=== PATIENT | male | born 1960 | race Caucasian/White ===

== ENCOUNTER 2016-11-29 00:31 | Emergency (ER) | payer BC ==
[2016-11-29 00:41] VITALS: BP 142/92
[2016-11-29] MEDS ORDERED: NORMAL SALINE 1000 ML 1,000 ML IV PRN (01:45)
--- NOTE | 2016-11-29 01:47 | ER Document Report ---
ED GI/ - General Chief Complaint: Flank Pain Stated Complaint: FLANK PAIN Time seen by provider: 01:46 Mode of Arrival: Stretcher Information source: Patient - HPI Patient complains to provider of: Flank pain Onset: This evening Timing/Duration: Sudden Quality of pain: Sharp, Stabbing Severity at maximum: Severe Severity in ED: Moderate Pain Level: 3 Location: Left flank Associated symptoms: Dysuria, Nausea Exacerbated by: Denies Relieved by: Denies Similar symptoms previously: No Recently seen / treated by doctor: No Notes: 11/29/16 01:46 Patient is a 56-year-old male presenting to the emergency room complaining of left flank pain that started abruptly around 8 PM this evening, it is sharp and stabbing and constant in nature, initially was at a 10 out of 10 pain, now at a 6 out of 10 pain after receiving IV Toradol via EMS, reports proximally a week ago he had some urinary frequency and hesitancy which has since resolved, he reports a mild sensation of nausea earlier this evening with the pain that has since resolved, he has had no vomiting, had a normal bowel movement earlier this morning, denies a history of similar symptoms previously, no aggravating or alleviating factors, no fever - Related Data Allergies/Adverse Reactions: No Known Allergies Allergy (Verified 01/31/14 08:23) Past Medical History - General Information source: Patient - Social History Smoking Status: Current Every Day Smoker Frequency of alcohol use: Occasional Drug Abuse: None Family History: Reviewed & Not Pertinent - Past Medical History Cardiac Medical History: Reports: Hx Atrial Fibrillation Pulmonary Medical History: Reports: Hx COPD Denies: Hx Tuberculosis Psychiatric Medical History: Denies: Hx Depression - Immunizations Hx Diphtheria, Pertussis, Tetanus Vaccination: No Review of Systems - Review of Systems Constitutional: No symptoms reported EENT: No symptoms reported Cardiovascular: No symptoms reported Respiratory: No symptoms reported Gastrointestinal: Nausea Genitourinary: See HPI, Flank pain Male Genitourinary: No symptoms reported Musculoskeletal: No symptoms reported Skin: No symptoms reported Hematologic/Lymphatic: No symptoms reported Neurological/Psychological: No symptoms reported -: Yes All other systems reviewed and negative Physical Exam - Vital signs Vitals: Temp Pulse Resp BP Pulse Ox 98.2 F 60 16 142/92 H 98 11/29/16 00:37 11/29/16 00:37 11/29/16 00:37 11/29/16 00:37 11/29/16 00:37 Interpretation: Normal - General General appearance: Appears well, Alert - HEENT Head: Normocephalic, Atraumatic Eyes: Normal Pupils: PERRL - Respiratory Respiratory status: No respiratory distress Chest status: Nontender Breath sounds: Normal Chest palpation: Normal - Cardiovascular Rhythm: Regular Heart sounds: Normal auscultation Murmur: No - Abdominal Inspection: Normal Distension: No distension Bowel sounds: Normal Tenderness: Nontender Organomegaly: No organomegaly - Back Back: Normal, Nontender. No: CVA tenderness - Extremities General upper extremity: Normal inspection, Nontender, Normal color, Normal ROM , Normal temperature General lower extremity: Normal inspection, Nontender, Normal color, Normal ROM , Normal temperature, Normal weight bearing. No: Elizabeth's sign - Neurological Neuro grossly intact: Yes Cognition: Normal Orientation: AAOx4 [place] Coma Scale Eye Opening: Spontaneous Nancie Coma Scale Verbal: Oriented [place] Coma Scale Motor: Obeys Commands [place] Coma Scale Total: 15 Speech: Normal Motor strength normal: LUE, RUE, LLE, RLE Sensory: Normal - Psychological Associated symptoms: Normal affect, Normal mood - Skin Skin Temperature: Warm Skin Moisture: Dry Skin Color: Normal Course - Re-evaluation Re-evalutation: 11/29/16 03:48 Lab and imaging findings were discussed with patient at bedside which are consistent with a 2 mm stone in the bladder just distal to the left UVJ, his symptoms are consistent with a kidney stone, although he is much more comfortable after receiving a single dose of Toradol, patient was provided with additional medication for home use and information for follow-up with urology, advised to return if symptoms worsen, patient acknowledges understanding and agreement with this plan - Vital Signs Vital signs: Temp Pulse Resp BP Pulse Ox 98.2 F 60 16 142/92 H 98 11/29/16 00:37 11/29/16 00:37 11/29/16 00:37 11/29/16 00:37 11/29/16 00:37 - Laboratory Result Diagrams: 11/29/16 02:45 11/29/16 02:45 Laboratory results interpreted by me: 11/29/16 11/29/16 11/29/16 01:55 02:45 02:45 Seg Neutrophils % 85.6 H Lymphocytes % 6.7 L Chloride 108 H Glucose 126 H Total Protein 5.8 L Urine Protein 30 H Urine Ketones TRACE H Urine Blood LARGE H Urine Urobilinogen 2.0 H - Diagnostic Test Radiology reviewed: Image reviewed, Reports reviewed Discharge - Discharge Clinical Impression: Kidney stone on left side Condition: Stable Disposition: HOME, SELF-CARE Instructions: Kidney Stone ([facility]) Additional Instructions: Drink plenty of fluids. Take pain medication as needed. Follow-up with your primary care provider and a urologist within the next 2-3 days. Return to the emergency room immediately if symptoms worsen or any additional concerns. Prescriptions: Ondansetron [Zofran Odt 4 mg Tablet] 1 - 2 tab PO Q4H #10 tab.rapdis Oxycodone HCl/Acetaminophen [Percocet 5-325 mg Tablet] 1 - 2 tab PO ASDIR PRN # 15 tablet PRN Reason: Tamsulosin HCl [Flomax 0.4 mg Cap.sr] 0.4 mg PO DAILY #7 cap.sr.24h Forms: Return to Work
[2016-11-29 02:25] LABS: APPEARANCE,URINE CLOUDY; BILIRUBIN,URINE NEGATIVE (NEGATIVE); CALCIUM OXALATE CRYSTALS,URINE MODERATE /HPF; GLUCOSE, URINE NEGATIVE (NEGATIVE); KETONES,URINE TRACE mg/dL (NEGATIVE); LEUKOCYTE ESTERASE,URINE NEGATIVE (NEGATIVE); NITRITE,URINE NEGATIVE (NEGATIVE); PROTEIN,URINE 30 mg/dL (NEGATIVE); URINE SPECIFIC GRAVITY 1.025
[2016-11-29 03:04] LABS: ABSOLUTE EOSINOPHILS # (AUTO) 0.1 10^3/uL (0.0-0.6); ABSOLUTE LYMPHOCYTES (AUTO) 0.6 10^3/uL (0.5-4.7); ABSOLUTE MONOCYTES (AUTO) 0.6 10^3/uL (0.1-1.4); ABSOLUTE NEUT (AUTO) 7.8 10^3/uL (1.7-8.2); BASOPHILS % (AUTO) 0.4 % (0-2); EOSINOPHILS % (AUTO) 0.9 % (0-6); HEMATOCRIT 43.1 % (37.9-51.0); HEMOGLOBIN 15.1 g/dL (13.5-17.0); HGB HCT DIFFERENCE 2.2; LYMPHOCYTES % (AUTO) 6.7 % (13-45); MEAN CORPUSCULAR HEMOGLOBIN 32.4 pg (27.0-33.4); MEAN CORPUSCULAR HGB CONC 34.9 g/dL (32.0-36.0); MEAN CORPUSCULAR VOLUME 93 fl (80-97); MONOCYTES % (AUTO) 6.4 % (3-13); RED BLOOD COUNT 4.65 10^6/uL (4.35-5.55); RED CELL DISTRIBUTION WIDTH 13.9 % (11.5-14.0); SEGMENTED NEUTROPHILS % (AUTO) 85.6 % (42-78); WHITE BLOOD COUNT 9.1 10^3/uL (4.0-10.5)
[2016-11-29 03:08] LABS: ALANINE AMINOTRANSFERASE 31 U/L (21-72); ALBUMIN 3.5 g/dL (3.5-5.0); ALKALINE PHOSPHATASE 84 U/L (38-126); ANION GAP 9 (5-19); ASPARTATE AMINO TRANSFERASE 26 U/L (17-59); BILIRUBIN,TOTAL 0.5 mg/dL (0.2-1.3); BLOOD UREA NITROGEN 15 mg/dL (7-20); CALCIUM 8.9 mg/dL (8.4-10.2); CARBON DIOXIDE 24 mmol/L (22-30); CHLORIDE 108 mmol/L (98-107); CREATININE RESULT 0.75 mg/dL (0.52-1.25); GLUCOSE 126 mg/dL (75-110); SODIUM 140.6 mmol/L (137-145); TOTAL PROTEIN 5.8 g/dL (6.3-8.2)
[2016-11-29] MEDS ORDERED: HYDROCODONE/ACETAMINOPHEN 5-325 MG 6 TAB/DSPK PO PRN (03:25)
[2016-11-29] MEDS ORDERED: ONDANSETRON ODT 4 MG TAB (6 TAB/DSPK) PO PRN (03:26)
[2016-11-29] MEDS ORDERED: TAMSULOSIN HCL 0.4 MG CAP.SR.24H PO ONE (03:26)
== END 2016-11-29 04:07 | disposition home or self-care (01) ==
LOC: ER 00:31
DX: N20.0 Calculus of kidney (principal); R10.9 Unspecified abdominal pain; R30.0 Dysuria; F17.200 Nicotine dependence, unspecified, uncomplicated; J44.9 Chronic obstructive pulmonary disease, unspecified
CPT/HCPCS: 99284; 96360; 36415; 85025; 80053; 81001; 76380; J7030

== ENCOUNTER 2017-04-29 10:41 | Emergency (ER) | payer BC ==
[2017-04-29] MEDS ORDERED: ASPIRIN 81 MG TABLET, CHEWABLE PO ONE (10:55)
[2017-04-29] MEDS ORDERED: IPRATROPIUM/ALBUTEROL 0.5-2.5 MG/3 ML AMPUL NEB ONE (10:57)
--- NOTE | 2017-04-29 10:59 | ER Document Report ---
ED Medical Screen (RME) - General Chief Complaint: Shortness Of Breath Stated Complaint: SHORT OF BREATH Time Seen by Provider: 04/29/17 10:55 Mode of Arrival: Ambulatory Information source: Patient Notes: 56-year-old male complaining of bilateral leg swelling over the past week with increased shortness of breath and chest tightness. He has a history of A. fib, COPD, and CHF. He is concerned that this is an exacerbation of CHF. TRAVEL OUTSIDE OF THE [place] IN LAST 30 DAYS: No - Related Data Allergies/Adverse Reactions: No Known Allergies Allergy (Verified 04/29/17 10:43) Past Medical History - Past Medical History Cardiac Medical History: Reports: Hx Atrial Fibrillation Pulmonary Medical History: Reports: Hx COPD Denies: Hx Tuberculosis Renal/ Medical History: Denies: Hx Peritoneal Dialysis Psychiatric Medical History: Denies: Hx Depression - Immunizations Hx Diphtheria, Pertussis, Tetanus Vaccination: No Physical Exam - Vital signs Vitals: Temp Pulse Resp BP Pulse Ox 97.9 F 77 16 134/80 H 95 04/29/17 10:43 04/29/17 10:43 04/29/17 10:43 04/29/17 10:43 04/29/17 10:43 Course - Vital Signs Vital signs: Temp Pulse Resp BP Pulse Ox 97.9 F 77 16 134/80 H 95 04/29/17 10:43 04/29/17 10:43 04/29/17 10:43 04/29/17 10:43 04/29/17 10:43
[2017-04-29 11:24] LABS: ABSOLUTE EOSINOPHILS # (AUTO) 0.1 10^3/uL (0.0-0.6); ABSOLUTE LYMPHOCYTES (AUTO) 1.8 10^3/uL (0.5-4.7); ABSOLUTE MONOCYTES (AUTO) 0.9 10^3/uL (0.1-1.4); ABSOLUTE NEUT (AUTO) 7.2 10^3/uL (1.7-8.2); BASOPHILS % (AUTO) 0.4 % (0-2); EOSINOPHILS % (AUTO) 0.8 % (0-6); HEMATOCRIT 46.2 % (37.9-51.0); HEMOGLOBIN 15.3 g/dL (13.5-17.0); HGB HCT DIFFERENCE -0.3; LYMPHOCYTES % (AUTO) 17.9 % (13-45); MEAN CORPUSCULAR HEMOGLOBIN 31.7 pg (27.0-33.4); MEAN CORPUSCULAR HGB CONC 33.1 g/dL (32.0-36.0); MEAN CORPUSCULAR VOLUME 96 fl (80-97); MONOCYTES % (AUTO) 8.8 % (3-13); RED BLOOD COUNT 4.81 10^6/uL (4.35-5.55); RED CELL DISTRIBUTION WIDTH 14.9 % (11.5-14.0); SEGMENTED NEUTROPHILS % (AUTO) 72.1 % (42-78); WHITE BLOOD COUNT 9.9 10^3/uL (4.0-10.5)
[2017-04-29 11:40] LABS: ALANINE AMINOTRANSFERASE 40 U/L (21-72); ALBUMIN 3.8 g/dL (3.5-5.0); ALKALINE PHOSPHATASE 73 U/L (38-126); ANION GAP 10 (5-19); ASPARTATE AMINO TRANSFERASE 27 U/L (17-59); BILIRUBIN,DIRECT 0.3 mg/dL (0.0-0.4); BILIRUBIN,TOTAL 0.7 mg/dL (0.2-1.3); BLOOD UREA NITROGEN 15 mg/dL (7-20); CALCIUM 9.4 mg/dL (8.4-10.2); CARBON DIOXIDE 29 mmol/L (22-30); CHLORIDE 103 mmol/L (98-107); CREATINE KINASE 48 U/L (55-170); CREATININE RESULT 0.89 mg/dL (0.52-1.25); GLUCOSE 89 mg/dL (75-110); POTASSIUM 3.8 mmol/L (3.6-5.0); SODIUM 141.9 mmol/L (137-145); TOTAL PROTEIN 6.4 g/dL (6.3-8.2)
[2017-04-29 11:52] LABS: CREATINE KINASE MB 1.05 ng/mL (<4.55)
[2017-04-29 11:53] LABS: TROPONIN I < 0.012 ng/mL
--- NOTE | 2017-04-29 13:00 | RADIOLOGY REPORT (SQ) ---
EXAM DESCRIPTION: CHEST PA/LAT COMPLETED DATE/TIME: 04/29/2017 12:47 pm REASON FOR STUDY: sob COMPARISON: 01/31/2014 NUMBER OF VIEWS: Two view. TECHNIQUE: Frontal and lateral radiographic views of the chest acquired. LIMITATIONS: None. FINDINGS: LUNGS AND PLEURA: Stable chronic lung change without new opacities, masses or pneumothorax . No pleural effusion. Attenuated blood vessels and flattened shirley-diaphragms. MEDIASTINUM AND HILAR STRUCTURES: No masses. No contour abnormalities. HEART AND VASCULAR STRUCTURES: Heart normal in size and contour. No evidence for failure. BONES: No acute findings. HARDWARE: None in the chest. OTHER: No other significant finding. IMPRESSION: COPD. NO ACUTE RADIOGRAPHIC FINDING IN THE CHEST. TECHNICAL DOCUMENTATION: JOB ID: [id number] [employer]- All Rights Reserved
--- NOTE | 2017-04-29 13:40 | ER Document Report ---
ED General - General Chief Complaint: Shortness Of Breath Stated Complaint: SHORT OF BREATH Time Seen by Provider: 04/29/17 10:55 Mode of Arrival: Ambulatory TRAVEL OUTSIDE OF THE [place] 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 Patient states this happened in the past which she was given Lasix for. Patient denies any pain in his legs patient denies history of DVT. Patient denies any shortness of breath patient states has a history of atrial fibrillation has been cardioverted in the past. Patient is unclear if he ever been in a normal sinus rhythm and takes medication to prevent A. fib or if he continues to have have rate controlled A. fib. Denies fevers chills nausea vomiting change in medications - Related Data Allergies/Adverse Reactions: No Known Allergies Allergy (Verified 04/29/17 10:43) Past Medical History - General Information source: Patient - Social History Smoking Status: Current Every Day Smoker Frequency of alcohol use: Occasional Drug Abuse: None Family History: Reviewed & Not Pertinent Patient has suicidal ideation: No Patient has homicidal ideation: No - Past Medical History Cardiac Medical History: Reports: Hx Atrial Fibrillation Pulmonary Medical History: Reports: Hx COPD Denies: Hx Tuberculosis Renal/ Medical History: Denies: Hx Peritoneal Dialysis Psychiatric Medical History: Denies: Hx Depression - Immunizations Hx Diphtheria, Pertussis, Tetanus Vaccination: No Review of Systems - Review of Systems Constitutional: No symptoms reported EENT: No symptoms reported Cardiovascular: No symptoms reported Respiratory: No symptoms reported Gastrointestinal: No symptoms reported Genitourinary: No symptoms reported Male Genitourinary: No symptoms reported Musculoskeletal: Other - Peripheral swelling Skin: No symptoms reported Hematologic/Lymphatic: No symptoms reported Neurological/Psychological: No symptoms reported Physical Exam - Vital signs Vitals: Temp Pulse Resp BP Pulse Ox 97.9 F 77 16 134/80 H 95 04/29/17 10:43 04/29/17 10:43 04/29/17 10:43 04/29/17 10:43 04/29/17 10:43 Interpretation: Normal - General General appearance: Appears well, Alert - HEENT Head: Normocephalic, Atraumatic Eyes: Normal Pupils: PERRL - Respiratory Respiratory status: No respiratory distress Chest status: Nontender Breath sounds: Normal Chest palpation: Normal - Cardiovascular Rhythm: Regular Heart sounds: Normal auscultation Murmur: No - Abdominal Inspection: Normal Distension: No distension Bowel sounds: Normal Tenderness: Nontender Organomegaly: No organomegaly - Back Back: Normal, Nontender - Extremities General upper extremity: Normal inspection, Nontender, Normal color, Normal ROM , Normal temperature General lower extremity: Normal inspection, Nontender, Edema - Patient edema bilaterally with 2+. No calf tenderness or palpable cords, Normal color, Normal ROM, Normal temperature, Normal weight bearing. No: Elizabeth's sign - Neurological Neuro grossly intact: Yes Cognition: Normal Orientation: AAOx4 [place] Coma Scale Eye Opening: Spontaneous Nancie Coma Scale Verbal: Oriented [place] Coma Scale Motor: Obeys Commands [place] Coma Scale Total: 15 Speech: Normal Motor strength normal: LUE, RUE, LLE, RLE Sensory: Normal - Psychological Associated symptoms: Normal affect, Normal mood - Skin Skin Temperature: Warm Skin Moisture: Dry Skin Color: Normal Course - Re-evaluation Re-evalutation: 04/29/17 15:57 Patient coming in for evaluation of bilateral lower extremity swelling with a bedside ultrasound showing no signs of DVT. Patient had compressibility of the common femoral vein or popliteal vein with good color flow. Patient lab work does not show any critical pathology. Patient was given 3 days of Lasix and encouraged follow-up with his primary care physician. - Vital Signs Vital signs: Temp Pulse Resp BP Pulse Ox 97.9 F 69 16 139/74 H 95 04/29/17 14:07 04/29/17 14:07 04/29/17 14:07 04/29/17 14:07 04/29/17 14:07 - Laboratory Result Diagrams: 04/29/17 11:10 04/29/17 11:10 Laboratory results interpreted by me: 04/29/17 04/29/17 11:10 11:10 RDW 14.9 H Creatine Kinase 48 L Discharge - Discharge Clinical Impression: Peripheral edema, History of atrial fibrillation Condition: Good Disposition: HOME, SELF-CARE Instructions: Atrial Fibrillation ([facility]), Edema, Peripheral ([facility]) Additional Instructions: Your evaluation today shows no signs of any critical pathology. I would continue to monitor the amount of salt that she are ingesting her diet. Please make sure she follow-up with her primary care physician. We will start you on Lasix 3 days worth. Return to the ER for any concerning pathology. Prescriptions: Furosemide [Lasix] 20 mg PO DAILY #3 tablet
[2017-04-29 14:09] VITALS: BP 139/74
--- NOTE | 2017-04-30 09:30 | EKG REPORT ---
SEVERITY:- BORDERLINE ECG - ATRIAL ECTOPIC TACHYCARDIA LOW VOLTAGE IN FRONTAL LEADS BORDERLINE T ABNORMALITIES, DIFFUSE LEADS : Confirmed by: Nadya De Leon 30-Apr-2017 09:30:07
== END 2017-04-29 14:09 | disposition home or self-care (01) ==
LOC: ER 10:41
DX: R60.0 Localized edema (principal); J44.9 Chronic obstructive pulmonary disease, unspecified; F17.200 Nicotine dependence, unspecified, uncomplicated; Z86.79 Personal history of other diseases of the circulatory system
CPT/HCPCS: 93005; 94640; 99285; 36415; 82553; 82550; 85025; 80053; 84484; 83880; 71020; 93010; J7620

== ENCOUNTER 2017-10-05 09:29 | Inpatient (IN) | payer BC ==
[2017-10-05] MEDS ORDERED: METHYLPREDNISOLONE INJ 125 MG/2 ML SDV IV ONE (09:55)
[2017-10-05] MEDS ORDERED: IPRATROPIUM/ALBUTEROL 0.5-2.5 MG/3 ML AMPUL NEB ONE (09:56)
[2017-10-05] MEDS ORDERED: ALBUTEROL SULFATE 0.083% NEB 2.5 MG/3 ML AMPUL NEB ONE ×2 (09:56)
--- NOTE | 2017-10-05 09:57 | ER Document Report ---
ED Medical Screen (RME) - General TRAVEL OUTSIDE OF THE [place] IN LAST 30 DAYS: No - HPI Onset: Last week <BASIL DODD - Last Filed: 10/05/17 10:09> <STEFANIE RAM - Last Filed: 10/05/17 10:26> - General Chief Complaint: Shortness Of Breath Stated Complaint: DIFFICULTY BREATHING Time Seen by Provider: 10/05/17 09:47 Notes: Patient is a 57 year old male presenting to the emergency department complaining of flu like symptoms. Patient states he was diagnosed with early stage pneumonia a week ago and feels like his symptoms of cough, wheezing, and shortness of breath has not gotten any better. (BASIL DODD) - Related Data Allergies/Adverse Reactions: No Known Allergies Allergy (Verified 10/05/17 09:41) Past Medical History - General Information source: Patient - Social History Cigarette use (# per day): Yes Chew tobacco use (# tins/day): No Frequency of alcohol use: None Drug Abuse: None - Past Medical History Cardiac Medical History: Reports: Hx Atrial Fibrillation Pulmonary Medical History: Reports: Hx COPD Denies: Hx Tuberculosis Renal/ Medical History: Denies: Hx Peritoneal Dialysis Psychiatric Medical History: Denies: Hx Depression - Immunizations Hx Diphtheria, Pertussis, Tetanus Vaccination: No <BASIL DODD - Last Filed: 10/05/17 10:09> Physical Exam - General General appearance: Appears well - Respiratory Breath sounds: Rhonchi - RLL, Wheezing - moderate expiratory <BASIL DODD - Last Filed: 10/05/17 10:09> - Vital signs Vitals: Temp Pulse Resp BP Pulse Ox 97.5 F 158 H 28 H 137/97 H 95 10/05/17 09:37 10/05/17 09:37 10/05/17 09:37 10/05/17 09:37 10/05/17 09:37 Course - Laboratory Result Diagrams: 10/05/17 10:10 10/05/17 10:10 <STEFANIE RAM - Last Filed: 10/05/17 10:26> - Vital Signs Vital signs: Temp Pulse Resp BP Pulse Ox 97.5 F 158 H 28 H 137/97 H 95 10/05/17 09:37 10/05/17 09:37 10/05/17 09:37 10/05/17 09:37 10/05/17 09:37
[2017-10-05] MEDS ORDERED: NORMAL SALINE 1000 ML 1,000 ML IV ONE (10:11)
--- NOTE | 2017-10-05 10:11 | ER Document Report ---
ED Respiratory Problem - General Chief Complaint: Shortness Of Breath Stated Complaint: DIFFICULTY BREATHING Time Seen by Provider: 10/05/17 09:47 Notes: The patient is a 57-year-old male, past medical history COPD, presents with increased shortness of breath and productive cough. He was started on a week of Levaquin 2 weeks ago by his dolly driver. He followed up with his primary care physician and was started on another week of Levaquin and steroids. Patient initially felt slightly better, but he is still having sputum and difficulty breathing. He took 2 duo nebs earlier today without much relief of his symptoms and came to the ER. Patient denies chest pain, nausea, vomiting, hemoptysis, back pain, recent travel, fevers, leg pain or headache. TRAVEL OUTSIDE OF THE [place] IN LAST 30 DAYS: No - Related Data Allergies/Adverse Reactions: No Known Allergies Allergy (Verified 10/05/17 09:41) Past Medical History - General Information source: Patient - Social History Smoking Status: Former Smoker Cigarette use (# per day): Yes Chew tobacco use (# tins/day): No Frequency of alcohol use: None Drug Abuse: None Family History: Reviewed & Not Pertinent Patient has suicidal ideation: No Patient has homicidal ideation: No - Past Medical History Cardiac Medical History: Reports: Hx Atrial Fibrillation Pulmonary Medical History: Reports: Hx COPD Denies: Hx Tuberculosis Renal/ Medical History: Denies: Hx Peritoneal Dialysis Psychiatric Medical History: Denies: Hx Depression - Immunizations Hx Diphtheria, Pertussis, Tetanus Vaccination: No Review of Systems - Review of Systems Notes: REVIEW OF SYSTEMS: CONSTITUTIONAL: -fevers, -chills EENT: -eye pain, -difficulty swallowing, -nasal congestion CARDIOVASCULAR:-chest pain, -syncope. RESPIRATORY: +cough, +SOB GASTROINTESTINAL: -abdominal pain, -nausea, -vomiting, -diarrhea GENITOURINARY: -dysuria, -hematuria MUSCULOSKELETAL: -back pain, -neck pain SKIN: -rash or skin lesions. HEMATOLOGIC: -easy bruising or bleeding. LYMPHATIC: -swollen, enlarged glands. NEUROLOGICAL: -altered mental status or loss of consciousness, -headache, - neurologic symptoms PSYCHIATRIC: -anxiety, -depression. ALL OTHER SYSTEMS REVIEWED AND NEGATIVE. Physical Exam - Vital signs Vitals: Temp Pulse Resp BP Pulse Ox 97.5 F 158 H 28 H 137/97 H 95 10/05/17 09:37 10/05/17 09:37 10/05/17 09:37 10/05/17 09:37 10/05/17 09:37 - Notes Notes: PHYSICAL EXAMINATION: GENERAL: Well-appearing, well-nourished and in no acute distress. HEAD: Atraumatic, normocephalic. EYES: Pupils equal round and reactive to light, extraocular movements intact, sclera anicteric, conjunctiva are normal. ENT: nares patent, oropharynx clear without exudates. Moist mucous membranes. NECK: Normal range of motion, supple without lymphadenopathy LUNGS: Tachypneic. Crackles in RLL. Mild end-expiratory wheezing. HEART: Regular rhythm, tachycardia. ABDOMEN: Soft, nontender, normoactive bowel sounds. No guarding, no rebound. No masses appreciated. EXTREMITIES: Normal range of motion, no pitting or edema. No cyanosis. NEUROLOGICAL: Cranial nerves grossly intact. Normal speech, normal gait. Normal sensory and motor exams. PSYCH: Normal mood, normal affect. SKIN: Warm, Dry, normal turgor, no rashes or lesions noted. Course - Re-evaluation Re-evalutation: Patient is a 57-year-old male with persistent wheezing and shortness of breath despite 2 outpatient treatments with Levaquin, steroids and his home nebulizers. Patient provided with IV Solu-Medrol and DuoNeb with improvement of his wheezing and shortness of breath. He has failed outpatient treatment for COPD exacerbation requires inpatient admission. Patient also found to be in persistent atrial flutter with RVR. He says that he takes Cardizem 240 mg daily and took himself off Xarelto due to a GI bleed. His bowl turner is Dr. Gio Thomas. 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 10/05/17 13:[address] De Leon about persistent atrial flutter with RVR despite 2 IV boluses of 20 mg and 25 mg Diltiazem and a drip. Pt remains stable. He recommends amiodarone protocol and Digoxin 0.5 mg IV and he will consult. 10/05/17 13:[address] Jama and he will admit patient to [facility] as Inpatient for further evaluation and treatment. - Vital Signs Vital signs: Temp Pulse Resp BP Pulse Ox 97.5 F 157 H 19 121/91 H 92 10/05/17 09:37 10/05/17 10:00 10/05/17 11:04 10/05/17 11:04 10/05/17 11:04 - Laboratory Result Diagrams: 10/05/17 10:10 10/05/17 10:10 Laboratory results interpreted by me: 10/05/17 10/05/17 10:10 10:10 WBC 11.1 H RDW 15.7 H Seg Neuts % (Manual) 97 H Lymphocytes % (Manual) 1 L Monocytes % (Manual) 1 L Abs Neuts (Manual) 10.8 H Abs Lymphs (Manual) 0.1 L Carbon Dioxide 31 H Glucose 133 H Direct Bilirubin 0.5 H Creatine Kinase 45 L - Diagnostic Test Radiology reviewed: Image reviewed, Reports reviewed Radiology results interpreted by me: CXR: NAD - EKG Interpretation by Me EKG shows normal: Intervals, QRS Complexes, ST-T Waves Rate: Tachycardia Rhythm: A.Flutter, with a 2:1 Block Powell/QRS: Right axis deviation When compared to previous EKG there are: Changes noted Critical Care Note - Critical Care Note Total time excluding time spent on procedures (mins): 45 Discharge - Discharge Clinical Impression: Atrial flutter with rapid ventricular response, COPD with exacerbation Condition: Stable Disposition: ADMITTED INPATIENT Admitting Provider: Hospitalist - [facility] Admitted: [facility]
[2017-10-05 10:26] LABS: VENOUS BLOOD BASE EXCESS 3.8 mmol/L; VENOUS BLOOD HCO3 30.6 mmol/L (20-32); VENOUS BLOOD PH 7.37 (7.30-7.42)
[2017-10-05 10:29] LABS: PROTHROMBIN TIME 14.9 SEC (11.4-15.4)
[2017-10-05 10:36] LABS: HEMATOCRIT 45.7 % (37.9-51.0); HEMOGLOBIN 15.3 g/dL (13.5-17.0); HGB HCT DIFFERENCE 0.2; MEAN CORPUSCULAR HEMOGLOBIN 30.8 pg (27.0-33.4); MEAN CORPUSCULAR HGB CONC 33.4 g/dL (32.0-36.0); MEAN CORPUSCULAR VOLUME 92 fl (80-97); RED BLOOD COUNT 4.96 10^6/uL (4.35-5.55); RED CELL DISTRIBUTION WIDTH 15.7 % (11.5-14.0); WHITE BLOOD COUNT 11.1 10^3/uL (4.0-10.5)
[2017-10-05 10:43] LABS: ALANINE AMINOTRANSFERASE 55 U/L (21-72); ALBUMIN 4.2 g/dL (3.5-5.0); ALKALINE PHOSPHATASE 80 U/L (38-126); ANION GAP 13 (5-19); ASPARTATE AMINO TRANSFERASE 27 U/L (17-59); BILIRUBIN,DIRECT 0.5 mg/dL (0.0-0.4); BLOOD UREA NITROGEN 19 mg/dL (7-20); CALCIUM 9.7 mg/dL (8.4-10.2); CARBON DIOXIDE 31 mmol/L (22-30); CHLORIDE 99 mmol/L (98-107); CREATINE KINASE 45 U/L (55-170); CREATININE RESULT 0.66 mg/dL (0.52-1.25); GLUCOSE 133 mg/dL (75-110); POTASSIUM 4.2 mmol/L (3.6-5.0); SODIUM 142.6 mmol/L (137-145); TOTAL PROTEIN 6.8 g/dL (6.3-8.2)
[2017-10-05 10:44] LABS: D-DIMER < 0.27 ug/mL (0.00-0.50)
[2017-10-05 10:55] LABS: ANISOCYTOSIS SLIGHT; BASOPHILS % (MANUAL) 0 % (0-2); EOSINOPHILS % (MANUAL) 1 % (0-6); LYMPHOCYTES % (MANUAL) 1 % (13-45); OVALOCYTES SLIGHT; POIKILOCYTOSIS SLIGHT; TOTAL CELLS COUNTED 100; TOXIC GRANULATION SLIGHT; TOXIC VACUOLATION PRESENT
[2017-10-05 10:56] LABS: HYPOCHROMASIA SLIGHT
--- NOTE | 2017-10-05 11:02 | RADIOLOGY REPORT (SQ) ---
EXAM DESCRIPTION: CHEST PA/LAT COMPLETED DATE/TIME: 10/05/2017 10:49 am REASON FOR STUDY: cough, wheeze, COPD COMPARISON: CT chest 01/29/2014 Two-view chest 04/29/2017 EXAM PARAMETERS: NUMBER OF VIEWS: two views TECHNIQUE: Digital Frontal and Lateral radiographic views of the chest acquired. RADIATION DOSE: NA LIMITATIONS: none FINDINGS: LUNGS AND PLEURA: Chronic appearing left pleural thickening with blunting of the lateral c ostophrenic sulcus, and adjacent bandlike left lower lobe scarring. No acute infiltrates. No pleural effusion. No pneumothorax. MEDIASTINUM AND HILAR STRUCTURES: No masses or contour abnormalities. HEART AND VASCULAR STRUCTURES: No cardiomegaly. Very head P pericardial calcification along the infe rior aspect of the pericardium, and along the anterior pericardium BONES: Osteoporotic with multiple old healed right rib fractures HARDWARE: None in the chest. OTHER: No other significant finding. IMPRESSION: No acute changes TECHNICAL DOCUMENTATION: JOB ID: [id number] [employer]- All Rights Reserved
[2017-10-05] MEDS ORDERED: DILTIAZEM HCL INJ 25 MG/5 ML VIAL IV ONE ×2 (11:08→11:57)
[2017-10-05] MEDS: DILTIAZEM HCL/D5W 125 MG/125 ML RTUINJ IV PRN ×2 (11:30→17:20)
[2017-10-05] MEDS ORDERED: FUROSEMIDE INJ/PF 40 MG/4 ML SDV IV ONE (12:31)
[2017-10-05] MEDS ORDERED: DIGOXIN INJ 0.5 MG/2 ML AMPULE IV ONE (13:51)
[2017-10-05] MEDS ORDERED: AMIODARONE HCL 150 MG in DEXTROSE 5%-WATER 100 ML IV ONE (13:51)
[2017-10-05] MEDS ORDERED: DEXTROSE 5%-WATER 500 ML with AMIODARONE HCL 900 MG IV PRN ×4 (13:51→17:35)
[2017-10-05] MEDS ORDERED: ACETAMINOPHEN 325 MG TABLET PO PRN (14:19)
[2017-10-05] MEDS ORDERED: ONDANSETRON HCL INJ/PF 4 MG/2 ML SDV IV PRN (14:19)
[2017-10-05] MEDS ORDERED: ALBUTEROL SULFATE 0.083% NEB 2.5 MG/3 ML AMPUL NEB PRN (14:19)
[2017-10-05] MEDS ORDERED: AMIODARONE HCL INJ 150 MG/3 ML VIAL IV ONE ×3 (14:30→15:30)
[2017-10-05 15:27] LABS: CREATINE KINASE MB 1.76 ng/mL (<4.55)
[2017-10-05 15:31] LABS: TROPONIN I < 0.012 ng/mL
[2017-10-05] MEDS ORDERED: INFLUENZA ADLT QUAD (36MOS+) 2017-18 VAC 0.5 ML SYR IM PRN (17:02)
--- NOTE | 2017-10-05 17:52 | PDOC H&P ---
History of Present Illness Admission Date/PCP: 10/05/17 14:30 Patient complains of: Heart palpatations History of Present Illness: CASSIDY ART is a 57 year old male presents with complaint of shortness of breath for several days. Pt states that at night he has noticed that he would wake up short of breath. Pt states that he went to his pulmonary doctor who treated to COPD exacerbation and pneumonia. Pt states that he still did not feel well so he went to his PCP who placed him on additional antibiotics. Pt states that his breathing is at it baseline. ER states that they spoke to Dr. De Leon who recommended starting Amiodarone. Past Medical History Cardiac Medical History: Reports: Atrial Fibrillation Pulmonary Medical History: Reports: Chronic Obstructive Pulmonary Disease (COPD) Denies: Tuberculosis Psychiatric Medical History: Denies: Depression Hematology: Denies: Anemia, Sickle Cell Disease Social History Smoking Status: Current Every Day Smoker Cigarettes Packs Per Day: 0.5 Number of Years Smokin Last Time Smoked: 10/05/17 Frequency of Alcohol Use: Heavy Hx Recreational Drug Use: No Drugs: None Hx Prescription Drug Abuse: No Family History Family History: Reviewed & Not Pertinent Parental Family History Reviewed: Yes Children Family History Reviewed: Yes Sibling(s) Family History Reviewed.: Yes Medication/Allergy Home Medications: Albuterol Sulfate [Proair HFA] 1 puff IH Q4HP PRN 10/05/17 Aspirin [Adult Low Dose Aspirin EC] 81 mg PO QAM 10/05/17 Diltiazem HCl [Cardizem Cd 240 mg Capsule.cr] 240 mg PO QAM 10/05/17 Umeclidinium Brm/Vilanterol Tr [Anoro Ellipta 62.5-25 Mcg INH] 1 puff IH DAILY 10/05/17 Allergies/Adverse Reactions: No Known Allergies Allergy (Verified 10/05/17 09:41) Review of Systems Constitutional: PRESENT: weight gain. ABSENT: chills, fever(s), headache(s), weight loss Eyes: ABSENT: visual disturbances Ears: ABSENT: hearing changes Cardiovascular: PRESENT: edema - +2 in lower ext bilaterally and + 2 pitting at waist., palpitations, other - chest tightness Respiratory: ABSENT: cough, hemoptysis Gastrointestinal: ABSENT: abdominal pain, constipation, diarrhea, hematemesis, hematochezia, nausea, vomiting Genitourinary: ABSENT: dysuria, hematuria Musculoskeletal: ABSENT: joint swelling Integumentary: ABSENT: rash, wounds Neurological: ABSENT: abnormal gait, abnormal speech, confusion, dizziness, focal weakness, syncope Psychiatric: ABSENT: anxiety, depression, homidical ideation, suicidal ideation Endocrine: ABSENT: cold intolerance, heat intolerance, polydipsia, polyuria Hematologic/Lymphatic: ABSENT: easy bleeding, easy bruising Physical Exam Vital Signs: Temp Pulse Resp BP Pulse Ox 97.9 F 138 H 18 116/89 H 100 10/05/17 16:23 10/05/17 16:23 10/05/17 16:23 10/05/17 16:23 10/05/17 16:23 Intake & Output 10/04/17 10/05/17 10/06/17 06:59 06:59 06:59 Weight 80.8 kg General appearance: PRESENT: no acute distress, well-developed, well-nourished Head exam: PRESENT: atraumatic, normocephalic Eye exam: PRESENT: conjunctiva pink, EOMI, PERRLA. ABSENT: scleral icterus Ear exam: PRESENT: normal external ear exam Mouth exam: PRESENT: moist, tongue midline Neck exam: ABSENT: carotid bruit, JVD, lymphadenopathy, thyromegaly Respiratory exam: PRESENT: accessory muscle use, crackles. ABSENT: rales, rhonchi, wheezes Cardiovascular exam: PRESENT: irregular rhythm, tachycardia. ABSENT: diastolic murmur, rubs, systolic murmur Pulses: PRESENT: normal dorsalis pedis pul Vascular exam: PRESENT: normal capillary refill GI/Abdominal exam: PRESENT: normal bowel sounds, soft. ABSENT: distended, guarding, mass, organolmegaly, rebound, tenderness Rectal exam: PRESENT: deferred Extremities exam: PRESENT: full ROM, +2 edema Musculoskeletal exam: PRESENT: full ROM Neurological exam: PRESENT: alert, awake, oriented to person, oriented to place , oriented to time, oriented to situation, CN II-XII grossly intact. ABSENT: motor sensory deficit Psychiatric exam: PRESENT: appropriate affect, normal mood. ABSENT: homicidal ideation, suicidal ideation Skin exam: PRESENT: abrasion Results Laboratory Results: 10/05/17 14:45 Magnesium 1.9 10/05/17 14:45 CK-MB (CK-2) 1.76 Troponin I < 0.012 Impressions: Chest X-Ray 10/05/17 09:56 IMPRESSION: No acute changes Assessment & Plan - Diagnosis (1) Atrial flutter with rapid ventricular response Is this a current diagnosis for this admission?: Yes Plan: Pt currently on Diltiazem and Amiodarone. (2) Volume overload Is this a current diagnosis for this admission?: Yes Plan: Secondary to A. Flutter with RVR: Will check [address] on Lasix 40 mg IV Q12. (3) COPD with exacerbation Is this a current diagnosis for this admission?: Yes Plan: Ruled out. No evidence of COPD exacerbation. (4) DVT prophylaxis Is this a current diagnosis for this admission?: Yes Plan: Xarelto - Time Time Spent: 30 to 50 Minutes
[2017-10-05] MEDS ORDERED: METOPROLOL TARTRATE PF/INJ 5 MG/5 ML SDV IV ONE (18:23)
[2017-10-05] MEDS ORDERED: METOPROLOL TARTRATE PF/INJ 5 MG/5 ML SDV IV SCH (18:45)
[2017-10-05] MEDS ORDERED: METOPROLOL TARTRATE PF/INJ 5 MG/5 ML SDV IV PRN (19:00)
--- NOTE | 2017-10-05 19:50 | PDOC CONSULTATION ---
Consultation Consult Date: 10/05/17 Attending physician:: SATNAM JOHNSON Consult reason:: Atrial flutter fibrillation History of Present Illness Admission Date/PCP: 10/05/17 14:30 Patient complains of: Shortness of breath History of Present Illness: CASSIDY ART is a 57 year old male presents with complaint of shortness of breath for several days. Pt states that at night he has noticed that he would wake up short of breath. Pt states that he went to his pulmonary doctor who treated to COPD exacerbation and pneumonia. Pt states that he still did not feel well so he went to his PCP who placed him on additional antibiotics. Pt states that his breathing is at it baseline. ER states that they spoke to Dr. De Leon who recommended starting Amiodarone. Patient normally sees Dr. Gio Orozco at Dr. Ruiz's office but has not been able to get up with him. Patient describes history of atrial fibrillation flutter in the past. He was on Xarelto in the past but he stopped it himself because of bleeding problems. He claims that he was sent to [facility] where he got cardioverted. They recommended that he would need ablation if cardioversion did not work. This was about 3 years ago. I got a call from the ER physician that patient did not respond to IV Cardizem and therefore suggested that amiodarone could be started. Also told them to give IV digoxin. Past Medical History Cardiac Medical History: Reports: Atrial Fibrillation Pulmonary Medical History: Reports: Chronic Obstructive Pulmonary Disease (COPD) Denies: Tuberculosis Psychiatric Medical History: Denies: Depression Hematology: Denies: Anemia, Sickle Cell Disease Social History Information Source: Patient Smoking Status: Current Every Day Smoker Cigarettes Packs Per Day: 0.5 Number of Years Smokin Last Time Smoked: 10/05/17 Frequency of Alcohol Use: Heavy Hx Recreational Drug Use: No Drugs: None Hx Prescription Drug Abuse: No - Advance Directive Resuscitation Status: Full Code Surrogate healthcare decision maker:: Patient spouse is the surrogate decision-maker Family History Family History: Reviewed & Not Pertinent Parental Family History Reviewed: Yes Children Family History Reviewed: Yes Sibling(s) Family History Reviewed.: Yes Medication/Allergy Home Medications: Albuterol Sulfate [Proair HFA] 1 puff IH Q4HP PRN 10/05/17 Aspirin [Adult Low Dose Aspirin EC] 81 mg PO QAM 10/05/17 Diltiazem HCl [Cardizem Cd 240 mg Capsule.cr] 240 mg PO QAM 10/05/17 Umeclidinium Brm/Vilanterol Tr [Anoro Ellipta 62.5-25 Mcg INH] 1 puff IH DAILY 10/05/17 Allergies/Adverse Reactions: No Known Allergies Allergy (Verified 10/05/17 09:41) Review of Systems Review of Systems: Please see history of present illness and past medical history as wall. Constitutional: No fever or chills reported. Head : No recent chronic headaches, recent head injury. Eyes: No recent eye pain, diplopia, redness, discharge, acute visual changes. Ears: No recent chronic ear pain, acute hearing loss, ear discharge. Oral cavity: No recent ulcerations, bleeding, oral cavity discomfort. Neck: No recent acute neck pain reported. Hematologic: No recent easy bruising or bleeding or hematologic malignancy reported. Lymphatic: No recent lymphatic malignancy, chronic lymphadenopathy reported yet Cardiovascular system review: See history of present illness. Respiratory system review: No recent chronic cough, hemoptysis, blood clots in the lungs reported. Mild Shortness of breath on exertion Gastrointestinal system review: Negative for any recent acute or chronic abdominal pain, hematemesis, melena, recent change in bowel habits. Genitourinary system review: No recent acute or chronic hematuria, flank pain, UTI etc. reported. Skin system review: Negative for any recent abnormal bruising, no rash, no pruritus reported. Neurologic: No prior history of strokes, mini strokes, seizure disorder. Psychologic: No history of major psychosis or major depression reported. Musculoskeletal: Minor aches and pains reported. No acute joint swelling reported. Endocrine: No recent polyuria, polydipsia, recent heat or cold intolerance. Physical Exam Vital Signs: Temp Pulse Resp BP Pulse Ox 97.9 F 138 H 23 H 126/88 H 92 10/05/17 16:23 10/05/17 16:23 10/05/17 18:00 10/05/17 17:56 10/05/17 18:00 Intake & Output 10/04/17 10/05/17 10/06/17 06:59 06:59 06:59 Intake Total 435 Output Total 300 Balance 135 Weight 80.8 kg Exam: GENERAL: well-nourished and in no acute distress. Alert and oriented x3 HEAD: Atraumatic, normocephalic. EYES: Pupils equal round and reactive to light, extraocular movements intact, sclera anicteric, conjunctiva are normal. ENT: TMs normal, nares patent, oropharynx clear without exudates. Moist mucous membranes. No oral ulcerations or bleeding gums noted NECK: supple without lymphadenopathy. Trachea is central. No cervical or axillary lymphadenopathy noted. Carotids are 2+, JVD WNL LUNGS: Respiration seems nonlabored, no significant accessory muscle action noted. Breath sounds clear to auscultation bilaterally and equal noted. No wheezes rales or rhonchi noted. No significant dullness noted on percussion. CHEST: Palpation of the chest wall shows no significant chest wall tenderness. No other significant abnormalities noted. HEART: [place] [employer], No PSH, 1/6 [place] aortic area, 1/6 connell systolic murmur mitral area, no rubs, no gallops. ABDOMEN: Soft, no significant tenderness appreciated, normoactive bowel sounds. No guarding, no rebound. No rigidity noted . No masses appreciated. EXTREMITIES: Pedal pulses are 1-2+, no calf tenderness noted. No clubbing or cyanosis.trace to 1+ pedal edema noted NEUROLOGICAL: Focused neurological exam showed no significant neurologic deficit. Normal speech, no focal weakness appreciated. PSYCH: Normal mood, normal affect. Judgment and insight within normal limits. SKIN: No significant ecchymosis, rash, ulcerations or signs of pruritus noted. MUSCULOSKELETAL EXAM: No significant joint swelling noted. Results Laboratory Results: 10/05/17 14:45 Magnesium 1.9 10/05/17 14:45 CK-MB (CK-2) 1.76 Troponin I < 0.012 EKG Comments: Atrial flutter with rapid ventricular response. 2-1 conduction Impressions: Chest X-Ray 10/05/17 09:56 IMPRESSION: No acute changes Assessment & Plan - Diagnosis (1) Atrial flutter with rapid ventricular response Is this a current diagnosis for this admission?: Yes (2) COPD with exacerbation Is this a current diagnosis for this admission?: Yes (3) Tobacco abuse Is this a current diagnosis for this admission?: Yes - Notes Notes: Atrial flutter with rapid ventricular response. Patient had difficult to control heart rate response. He was noted to be actively wheezing. It was felt that if Cardizem was not effective, along with digoxin, short-term use of amiodarone may be needed. Will order a 2D echo. COPD with exacerbation: Continue bronchodilator therapy and steroid therapy as needed. It seems patient has a prior history of A. fib flutter and is status post cardioversion. Have offered patient transferred to tertiary care for transesophageal echocardiogram and ablation therapy but currently is declining this option. He claims that a lot of his friends had ablation procedure and still they went on to have the same problem. Patient also declines to quit smoking at this time. - Time Time Spent: 30 to 50 Minutes - CODE STATUS was discussed, patient remains full code. Surrogate decision-maker unchanged. Multiple medical problems were addressed. More than 50% of the time spent coordinating care, discussing management plans with involved caregivers. Management plans discussed with involved personnels. Medical decision making was of moderate to high complexity , patient's has multiple comorbidities. Medications reviewed and adjusted accordingly: Yes
[2017-10-05] MEDS: FUROSEMIDE INJ/PF 40 MG/4 ML SDV IV SCH (21:19)
[2017-10-05 21:20] LABS: CREATINE KINASE MB 1.61 ng/mL (<4.55)
[2017-10-05] MEDS: RIVAROXABAN 10 MG TABLET PO SCH (21:21)
[2017-10-05 21:25] LABS: TROPONIN I < 0.012 ng/mL
--- NOTE | 2017-10-05 22:44 | EKG REPORT ---
SEVERITY:- ABNORMAL ECG - A FLUTTER WITH 2:1 CONDUCTION RIGHT AXIS DEVIATION NONSPECIFIC T ABNORMALITIES, DIFFUSE LEADS BORDERLINE PROLONGED QT INTERVAL : Confirmed by: Nadya De Leon 05-Oct-2017 22:44:12
[2017-10-06] MEDS: DILTIAZEM HCL/D5W 125 MG/125 ML RTUINJ IV PRN ×2 (00:07→07:38)
[2017-10-06 03:25] LABS: CREATINE KINASE MB 1.14 ng/mL (<4.55)
[2017-10-06 03:32] LABS: TROPONIN I < 0.012 ng/mL
[2017-10-06 06:08] LABS: HEMATOCRIT 44.6 % (37.9-51.0); HEMOGLOBIN 14.9 g/dL (13.5-17.0); HGB HCT DIFFERENCE 0.1; MEAN CORPUSCULAR HEMOGLOBIN 30.7 pg (27.0-33.4); MEAN CORPUSCULAR HGB CONC 33.4 g/dL (32.0-36.0); MEAN CORPUSCULAR VOLUME 92 fl (80-97); RED BLOOD COUNT 4.86 10^6/uL (4.35-5.55); RED CELL DISTRIBUTION WIDTH 15.6 % (11.5-14.0); WHITE BLOOD COUNT 14.2 10^3/uL (4.0-10.5)
[2017-10-06 06:32] LABS: ALANINE AMINOTRANSFERASE 45 U/L (21-72); ALBUMIN 3.9 g/dL (3.5-5.0); ALKALINE PHOSPHATASE 93 U/L (38-126); ANION GAP 13 (5-19); ASPARTATE AMINO TRANSFERASE 21 U/L (17-59); BILIRUBIN,DIRECT 0.3 mg/dL (0.0-0.4); BILIRUBIN,TOTAL 0.5 mg/dL (0.2-1.3); BLOOD UREA NITROGEN 25 mg/dL (7-20); CALCIUM 9.5 mg/dL (8.4-10.2); CARBON DIOXIDE 30 mmol/L (22-30); CHLORIDE 101 mmol/L (98-107); CREATININE RESULT 0.92 mg/dL (0.52-1.25); Direct HDL 66 mg/dL (>40); GLUCOSE 136 mg/dL (75-110); POTASSIUM 4.2 mmol/L (3.6-5.0); SODIUM 143.9 mmol/L (137-145); TOTAL PROTEIN 6.2 g/dL (6.3-8.2); TRIGLYCERIDES 70 mg/dL (<150)
[2017-10-06 06:43] LABS: DIRECT LDL 88 mg/dL (<100)
[2017-10-06 06:45] LABS: BASOPHILS % (MANUAL) 0 % (0-2); EOSINOPHILS % (MANUAL) 0 % (0-6); LYMPHOCYTES % (MANUAL) 4 % (13-45); TOTAL CELLS COUNTED 100
[2017-10-06 06:46] LABS: ANISOCYTOSIS SLIGHT
[2017-10-06 06:47] LABS: TOXIC GRANULATION SLIGHT; TOXIC VACUOLATION PRESENT
[2017-10-06 07:02] LABS: THYROID STIMULATING HORMONE 0.45 uIU/mL (0.47-4.68)
[2017-10-06] MEDS ORDERED: DILTIAZEM HCL 240 MG CAPSULE.CR PO SCH (10:00)
[2017-10-06] MEDS: DRONEDARONE HYDROCHLORIDE 400 MG TABLET PO SCH ×2 (10:02→21:30)
[2017-10-06] MEDS: FUROSEMIDE INJ/PF 40 MG/4 ML SDV IV SCH (10:02)
--- NOTE | 2017-10-06 15:03 | XCELERA REPORT ---
[address] [address] Transthoracic Echocardiogram Report Name: CASSIDY ART Age: 57 yrs Gender: Male : 1960 Patient Status: Inpatient Patient Location: ICU^[id number] Study Date: 10/06/2017 10:37 AM Height: 73 in Weight: 177 lb BSA: 2.0 m2 Procedure: A complete two-dimensional transthoracic echocardiogram was performed (2D, M-mode, spectral and color flow Doppler). The study was technically difficult with many images being suboptimal in quality. Reason For Study: A flutter Ordering Physician: NADYA TINEO Performed By: Sonia Lopez Interpretation Summary The study was technically difficult with many images being suboptimal in quality. Left ventricular systolic function is mildly reduced. The Ejection Fraction estimate is 45-50% LV diastolic function could not be adequately assessed. Regional wall motion abnormalities cannot be excluded due to limited visualization. The left ventricle is grossly normal size. The right ventricular systolic function is normal. The right atrium is normal in size The left atrium is mildly dilated. There is a trace amount of mitral regurgitation There is no mitral valve stenosis. No aortic regurgitation is present. There is no aortic valve stenosis There is a trace or physiologic amount of tricuspid regurgitation Tricuspid regurgitation jet envelope not well defined to measure RV systolic pressure accurately. The aortic root is not well visualized but is probably normal size. The inferior vena cava appeared normal and decreased < 50% with respiration (RAP 10-15 mmHg) There is no pericardial effusion. MMode/2D Measurements & Calculations RVDd: 2.3 cm LVIDd: 4.0 cm FS: 21.0 % Ao root diam: 2.4 cm IVSd: 1.00 cm LVIDs: 3.2 cm EDV(Teich): 71.2 ml LVPWd: 1.00 cm ESV(Teich): 40.4 ml Ao root area: 4.6 cm2 EF(Teich): 43.3 % LA dimension: 3.7 cm Doppler Measurements & Calculations MV E max suresh: MV P1/2t max suresh: Ao V2 max: LV V1 max P.3 cm/sec 62.1 cm/sec 85.1 cm/sec 2.2 mmHg MV P1/2t: 61.0 msec Ao max PG: LV V1 max: 2.9 mmHg 75.0 cm/sec MVA(P1/2t): 3.6 cm2 MV dec slope: 298.3 cm/sec2 PA V2 max: 58.6 cm/sec PA max P.4 mmHg Left Ventricle The left ventricle is grossly normal size. Left ventricular systolic function is mildly reduced. The Ejection Fraction estimate is 45-50%. LV diastolic function could not be adequately assessed. Regional wall motion abnormalities cannot be excluded due to limited visualization. Right Ventricle The right ventricle is grossly normal size. There is normal right ventricular wall thickness. The right ventricular systolic function is normal. Atria The right atrium is normal in size. The left atrium is mildly dilated. Interarterial septum not well visualized and not well dopplered. Cannot comment on ASD/PFO presence. Mitral Valve The mitral valve is grossly normal. There is no mitral valve stenosis. There is a trace amount of mitral regurgitation. Aortic Valve The aortic valve is not well visualized secondary to technical limitations. There is no aortic valve stenosis. No aortic regurgitation is present. Tricuspid Valve The tricuspid valve is not well visualized secondary to technical limitations. There is no tricuspid stenosis. There is a trace or physiologic amount of tricuspid regurgitation. Tricuspid regurgitation jet envelope not well defined to measure RV systolic pressure accurately. Pulmonic Valve The pulmonic valve is not well visualized. Great Vessels The aortic root is not well visualized but is probably normal size. The inferior vena cava appeared normal and decreased < 50% with respiration (RAP 10-15 mmHg). Effusions There is no pericardial effusion. : NADYA TINEO > Nadya Tineo
--- NOTE | 2017-10-06 15:45 | EKG REPORT ---
SEVERITY:- ABNORMAL ECG - ECTOPIC ATRIAL RHYTHM SUPRAVENTRICULAR BIGEMINY NONSPECIFIC INTRAVENTRICULAR CONDUCTION DELAY MINIMAL ST DEPRESSION, NON SOEFIFIC T INVERSION, ANTEROLATERAL LEADS : Confirmed by: Nadya De Leon 06-Oct-2017 15:44:17
[2017-10-06] MEDS ORDERED: METOPROLOL SUCCINATE 50 MG TAB.SR.24H PO ONE (16:00)
--- NOTE | 2017-10-06 16:10 | PDOC PROGRESS REPORT ---
Subjective Progress Note for:: 10/06/17 Subjective:: Pt states that his heart rate has been better controlled but when he coughs his heart rate goes up. Physical Exam Vital Signs: Temp Pulse Resp BP Pulse Ox 98 F 110 H 24 H 126/83 H 94 10/06/17 12:00 10/06/17 15:10 10/06/17 15:10 10/06/17 13:42 10/06/17 15:10 Intake & Output 10/05/17 10/06/17 10/07/17 06:59 06:59 06:59 Intake Total 854 522 Output Total 1085 1200 Balance -231 -678 Weight 80.5 kg General appearance: PRESENT: no acute distress, well-developed, well-nourished Head exam: PRESENT: atraumatic, normocephalic Eye exam: PRESENT: conjunctiva pink, EOMI, PERRLA. ABSENT: scleral icterus Ear exam: PRESENT: normal external ear exam Mouth exam: PRESENT: moist, tongue midline Neck exam: ABSENT: carotid bruit, JVD, lymphadenopathy, thyromegaly Respiratory exam: PRESENT: clear to auscultation alverto. ABSENT: rales, rhonchi, wheezes Cardiovascular exam: PRESENT: irregular rhythm, other - trace edema of lower ext +1 pitting. Pulses: PRESENT: normal dorsalis pedis pul Vascular exam: PRESENT: normal capillary refill GI/Abdominal exam: PRESENT: normal bowel sounds, soft. ABSENT: distended, guarding, mass, organolmegaly, rebound, tenderness Rectal exam: PRESENT: deferred Extremities exam: PRESENT: full ROM, +1 edema - of lower ext. ABSENT: calf tenderness, clubbing Neurological exam: PRESENT: alert, awake, oriented to person, oriented to place , oriented to time, oriented to situation, CN II-XII grossly intact. ABSENT: motor sensory deficit Psychiatric exam: PRESENT: appropriate affect, normal mood. ABSENT: homicidal ideation, suicidal ideation Skin exam: PRESENT: dry, intact, warm. ABSENT: cyanosis, rash Results Laboratory Results: 10/06/17 05:55 10/06/17 05:55 10/06/17 10/06/17 10/06/17 05:55 05:55 05:55 WBC 14.2 H RBC 4.86 Hgb 14.9 Hct 44.6 MCV 92 MCH 30.7 MCHC 33.4 RDW 15.6 H Plt Count 191 Seg Neutrophils % Not Reportable Lymphocytes % Not Reportable Monocytes % Not Reportable Eosinophils % Not Reportable Basophils % Not Reportable Absolute Neutrophils Not Reportable Absolute Lymphocytes Not Reportable Absolute Monocytes Not Reportable Absolute Eosinophils Not Reportable Absolute Basophils Not Reportable Sodium 143.9 Potassium 4.2 Chloride 101 Carbon Dioxide 30 Anion Gap 13 BUN 25 H Creatinine 0.92 Est GFR ( Amer) > 60 Est GFR (Non-Af Amer) > 60 Glucose 136 H Calcium 9.5 Total Bilirubin 0.5 AST 21 ALT 45 Alkaline Phosphatase 93 Total Protein 6.2 L Albumin 3.9 Triglycerides 70 Cholesterol 155.90 LDL Cholesterol Direct 88 VLDL Cholesterol 14.0 HDL Cholesterol 66 TSH 0.45 L Free T4 0.91 10/05/17 10/05/17 10/06/17 14:45 20:30 02:35 CK-MB (CK-2) 1.76 1.61 1.14 Troponin I < 0.012 < 0.012 < 0.012 Impressions: Chest X-Ray 10/05/17 09:56 IMPRESSION: No acute changes Assessment & Plan - Diagnosis (1) Atrial flutter with rapid ventricular response Is this a current diagnosis for this admission?: Yes Plan: Pt currently on Diltiazem and Amiodarone. Pt's heart rate is better controlled. (2) Volume overload Qualifiers: Hypervolemia type: unspecified Qualified Code(s): E87.70 - Fluid overload, unspecified Is this a current diagnosis for this admission?: Yes Plan: Secondary to A. Flutter with RVR: EF 45%. Will change Lasix to 40 mg PO Qdaily. (3) COPD with exacerbation Is this a current diagnosis for this admission?: Yes Plan: Ruled out. No evidence of COPD exacerbation. (4) DVT prophylaxis Is this a current diagnosis for this admission?: Yes Plan: Xarelto
[2017-10-06] MEDS ORDERED: BUDESONIDE NEB 0.5 MG/2 ML AMPUL NEB ONE ×2 (17:21→18:30)
--- NOTE | 2017-10-06 19:46 | PDOC PROGRESS REPORT ---
Subjective Progress Note for:: 10/06/17 Subjective:: Patient feels much improved. He is still in atrial flutter. Heart rate however well controlled. 2D echo reviewed showed depressed LVEF, borderline. Have therefore switched patient to beta-john. Continue Multaq for the time being to see if this will convert patient to sinus rhythm. Amiodarone was stopped. Physical Exam Vital Signs: Temp Pulse Resp BP Pulse Ox 98 F 99 30 H 119/90 H 90 L 10/06/17 12:00 10/06/17 17:24 10/06/17 18:23 10/06/17 18:23 10/06/17 18:23 Intake & Output 10/05/17 10/06/17 10/07/17 06:59 06:59 06:59 Intake Total 854 742 Output Total 1085 1200 Balance -231 -458 Weight 80.5 kg Exam: GENERAL: well-nourished and in no acute distress. Alert and oriented x3 HEAD: Atraumatic, normocephalic. EYES: Pupils equal round and reactive to light, extraocular movements intact, sclera anicteric, conjunctiva are normal. ENT: TMs normal, nares patent, oropharynx clear without exudates. Moist mucous membranes. No oral ulcerations or bleeding gums noted NECK: supple without lymphadenopathy. Trachea is central. No cervical or axillary lymphadenopathy noted. Carotids are 2+, JVD WNL LUNGS: Respiration seems nonlabored, no significant accessory muscle action noted. Mild bilateral wheezes rales or rhonchi noted. No significant dullness noted on percussion. CHEST: Palpation of the chest wall shows no significant chest wall tenderness. No other significant abnormalities noted. 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 ABDOMEN: Soft, no significant tenderness appreciated, normoactive bowel sounds. No guarding, no rebound. No rigidity noted . No masses appreciated. EXTREMITIES: Pedal pulses are 1-2+, no calf tenderness noted. No clubbing or cyanosis.trace to 1+ pedal edema noted NEUROLOGICAL: Focused neurological exam showed no significant neurologic deficit. Normal speech, no focal weakness appreciated. PSYCH: Normal mood, normal affect. Judgment and insight within normal limits. SKIN: No significant ecchymosis, rash, ulcerations or signs of pruritus noted. MUSCULOSKELETAL EXAM: No significant joint swelling noted. Results Laboratory Results: 10/06/17 05:55 10/06/17 05:55 10/06/17 10/06/17 10/06/17 05:55 05:55 05:55 WBC 14.2 H RBC 4.86 Hgb 14.9 Hct 44.6 MCV 92 MCH 30.7 MCHC 33.4 RDW 15.6 H Plt Count 191 Seg Neutrophils % Not Reportable Lymphocytes % Not Reportable Monocytes % Not Reportable Eosinophils % Not Reportable Basophils % Not Reportable Absolute Neutrophils Not Reportable Absolute Lymphocytes Not Reportable Absolute Monocytes Not Reportable Absolute Eosinophils Not Reportable Absolute Basophils Not Reportable Sodium 143.9 Potassium 4.2 Chloride 101 Carbon Dioxide 30 Anion Gap 13 BUN 25 H Creatinine 0.92 Est GFR ( Amer) > 60 Est GFR (Non-Af Amer) > 60 Glucose 136 H Calcium 9.5 Total Bilirubin 0.5 AST 21 ALT 45 Alkaline Phosphatase 93 Total Protein 6.2 L Albumin 3.9 Triglycerides 70 Cholesterol 155.90 LDL Cholesterol Direct 88 VLDL Cholesterol 14.0 HDL Cholesterol 66 TSH 0.45 L Free T4 0.91 10/05/17 10/05/17 10/06/17 14:45 20:30 02:35 CK-MB (CK-2) 1.76 1.61 1.14 Troponin I < 0.012 < 0.012 < 0.012 EKG Comments: Atrial flutter with controlled ventricular response Impressions: Chest X-Ray 10/05/17 09:56 IMPRESSION: No acute changes Assessment & Plan - Diagnosis (1) Atrial flutter with rapid ventricular response Is this a current diagnosis for this admission?: Yes (2) COPD with exacerbation Is this a current diagnosis for this admission?: Yes (3) Tobacco abuse Is this a current diagnosis for this admission?: Yes - Notes Notes: Heart rate today is reasonably well controlled. Patient claims that he did ambulate a little bit inside the room. Is denying any chest pain. He remains short of breath. He has not decided whether to quit on not as regards smoking. Patient's in the room. I was told by the unit nurses in the evening that patient would now consider ablation therapy. This will be arranged as an outpatient. In the meantime, patient to continue with Multaq, beta-blockers therapy. Plan to switch over from Cardizem to Toprol succinate. Patient had been advised to quit smoking. - Time Time with patient: 15-25 minutes - CODE STATUS was discussed, patient remains full code. Surrogate decision-maker patient spouse. Multiple medical problems were addressed. More than 50% of the time spent coordinating care, discussing management plans with involved caregivers. Management plans discussed with involved personnels. Medical decision making was of moderate to high complexity , patient's has multiple comorbidities. Medications reviewed and adjusted accordingly: Yes
[2017-10-06] MEDS: RIVAROXABAN 10 MG TABLET PO SCH (21:30)
[2017-10-06] MEDS: METOPROLOL SUCCINATE 50 MG TAB.SR.24H PO SCH (21:31)
[2017-10-06] MEDS: METHYLPREDNISOLONE INJ 40 MG/1 ML SDV IV SCH (21:31)
[2017-10-07 06:10] LABS: ARTERIAL BLOOD BASE EXCESS 3.4 mmol/L; ARTERIAL BLOOD O2 SATURATION 96.1 % (94-98)
[2017-10-07] MEDS: METHYLPREDNISOLONE INJ 40 MG/1 ML SDV IV SCH (06:12)
[2017-10-07 06:29] LABS: HEMATOCRIT 45.3 % (37.9-51.0); HEMOGLOBIN 15.2 g/dL (13.5-17.0); HGB HCT DIFFERENCE 0.3; MEAN CORPUSCULAR HEMOGLOBIN 30.7 pg (27.0-33.4); MEAN CORPUSCULAR HGB CONC 33.6 g/dL (32.0-36.0); MEAN CORPUSCULAR VOLUME 92 fl (80-97); RED BLOOD COUNT 4.95 10^6/uL (4.35-5.55); RED CELL DISTRIBUTION WIDTH 15.7 % (11.5-14.0); WHITE BLOOD COUNT 12.8 10^3/uL (4.0-10.5)
[2017-10-07 06:58] LABS: ANION GAP 14 (5-19); BLOOD UREA NITROGEN 41 mg/dL (7-20); CALCIUM 9.3 mg/dL (8.4-10.2); CARBON DIOXIDE 26 mmol/L (22-30); CHLORIDE 100 mmol/L (98-107); CREATININE RESULT 0.85 mg/dL (0.52-1.25); GLUCOSE 144 mg/dL (75-110); POTASSIUM 4.8 mmol/L (3.6-5.0); SODIUM 140.1 mmol/L (137-145)
[2017-10-07 07:05] LABS: BASOPHILS % (MANUAL) 0 % (0-2); EOSINOPHILS % (MANUAL) 0 % (0-6); LYMPHOCYTES % (MANUAL) 5 % (13-45); TOTAL CELLS COUNTED 100
[2017-10-07 07:06] LABS: ANISOCYTOSIS SLIGHT; OVALOCYTES SLIGHT; POIKILOCYTOSIS SLIGHT; TOXIC GRANULATION SLIGHT
[2017-10-07] MEDS ORDERED: FUROSEMIDE 40 MG TABLET PO SCH (10:00)
--- NOTE | 2017-10-07 10:29 | PDOC PROGRESS REPORT ---
Subjective Progress Note for:: 10/07/17 Subjective:: Pt states that he is doing well. Pt states that he wants to be discharged home today. Pt's at bedside. Physical Exam Vital Signs: Temp Pulse Resp BP Pulse Ox 97.5 F 95 24 H 136/97 H 92 10/07/17 08:00 10/07/17 08:00 10/07/17 10:00 10/07/17 08:23 10/07/17 10:00 Intake & Output 10/06/17 10/07/17 10/08/17 06:59 06:59 06:59 Intake Total 854 742 200 Output Total 1085 1550 300 Balance -231 -808 -100 Weight 80.5 kg 81.3 kg General appearance: PRESENT: no acute distress, well-developed, well-nourished Head exam: PRESENT: atraumatic, normocephalic Eye exam: PRESENT: conjunctiva pink, EOMI, PERRLA. ABSENT: scleral icterus Ear exam: PRESENT: normal external ear exam Mouth exam: PRESENT: moist, tongue midline Neck exam: ABSENT: carotid bruit, JVD, lymphadenopathy, thyromegaly Respiratory exam: PRESENT: wheezes - scant wheezing, other - fair airmovement. Cardiovascular exam: PRESENT: irregular rhythm Pulses: PRESENT: normal dorsalis pedis pul Vascular exam: PRESENT: normal capillary refill GI/Abdominal exam: PRESENT: normal bowel sounds, soft. ABSENT: distended, guarding, mass, organolmegaly, rebound, tenderness Rectal exam: PRESENT: deferred Extremities exam: PRESENT: full ROM. ABSENT: calf tenderness, clubbing, pedal edema Musculoskeletal exam: PRESENT: full ROM Neurological exam: PRESENT: alert, awake, oriented to person, oriented to place , oriented to time, oriented to situation, CN II-XII grossly intact. ABSENT: motor sensory deficit Psychiatric exam: PRESENT: appropriate affect, normal mood. ABSENT: homicidal ideation, suicidal ideation Skin exam: PRESENT: dry, intact, warm. ABSENT: cyanosis, rash Results Laboratory Results: 10/07/17 06:08 10/07/17 06:08 10/07/17 10/07/17 10/07/17 06:00 06:08 06:08 WBC 12.8 H RBC 4.95 Hgb 15.2 Hct 45.3 MCV 92 MCH 30.7 MCHC 33.6 RDW 15.7 H Plt Count 177 Seg Neutrophils % Not Reportable Lymphocytes % Not Reportable Monocytes % Not Reportable Eosinophils % Not Reportable Basophils % Not Reportable Absolute Neutrophils Not Reportable Absolute Lymphocytes Not Reportable Absolute Monocytes Not Reportable Absolute Eosinophils Not Reportable Absolute Basophils Not Reportable Carbonic Acid 1.36 H HCO3/H2CO3 Ratio 21:1 ABG pH 7.42 ABG pCO2 45.2 H ABG pO2 81.2 ABG HCO3 28.6 H ABG O2 Saturation 96.1 ABG Base Excess 3.4 FiO2 FLOW RATE 2 Sodium 140.1 Potassium 4.8 Chloride 100 Carbon Dioxide 26 Anion Gap 14 BUN 41 H Creatinine 0.85 Est GFR ( Amer) > 60 Est GFR (Non-Af Amer) > 60 Glucose 144 H Calcium 9.3 10/05/17 10/05/17 10/06/17 14:45 20:30 02:35 CK-MB (CK-2) 1.76 1.61 1.14 Troponin I < 0.012 < 0.012 < 0.012 Impressions: Chest X-Ray 10/05/17 09:56 IMPRESSION: No acute changes Assessment & Plan - Diagnosis (1) Atrial flutter with rapid ventricular response Is this a current diagnosis for this admission?: Yes Plan: Will continue Metoprolol, Multaq. (2) Volume overload Qualifiers: Hypervolemia type: unspecified Qualified Code(s): E87.70 - Fluid overload, unspecified Is this a current diagnosis for this admission?: Yes Plan: Will continue lasix daily. (3) COPD with exacerbation Is this a current diagnosis for this admission?: Yes Plan: Ruled out. No evidence of COPD exacerbation. Pt using controllers. (4) DVT prophylaxis Is this a current diagnosis for this admission?: Yes Plan: Xarelto - Time Time Spent with patient: 15-24 minutes - Possible discharge today if OK with cardiology.
[2017-10-07] MEDS: METOPROLOL SUCCINATE 50 MG TAB.SR.24H PO SCH (10:30)
[2017-10-07] MEDS: DRONEDARONE HYDROCHLORIDE 400 MG TABLET PO SCH (10:31)
[2017-10-07 13:50] VITALS: BP 118/91
--- NOTE | 2017-10-07 17:11 | PDOC PROGRESS REPORT ---
Subjective Progress Note for:: 10/07/17 Subjective:: Patient feels much improved. Today seems to be more like fine atrial flutter fibrillation. Heart rate however well controlled. Patient requesting discharge. Patient is denying any chest pain or shortness of breath. Have adjusted patient's medications. Physical Exam Vital Signs: Temp Pulse Resp BP Pulse Ox 98 F 95 20 118/91 H 94 10/07/17 14:00 10/07/17 08:00 10/07/17 14:00 10/07/17 12:23 10/07/17 14:00 Intake & Output 10/06/17 10/07/17 10/08/17 06:59 06:59 06:59 Intake Total 854 742 450 Output Total 1085 1550 950 Balance -231 808 -500 Weight 80.5 kg 81.3 kg Exam: GENERAL: well-nourished and in no acute distress. Alert and oriented x3 HEAD: Atraumatic, normocephalic. EYES: Pupils equal round and reactive to light, extraocular movements intact, sclera anicteric, conjunctiva are normal. ENT: TMs normal, nares patent, oropharynx clear without exudates. Moist mucous membranes. No oral ulcerations or bleeding gums noted NECK: supple without lymphadenopathy. Trachea is central. No cervical or axillary lymphadenopathy noted. Carotids are 2+, JVD WNL LUNGS: Respiration seems nonlabored, no significant accessory muscle action noted. Breath sounds clear to auscultation bilaterally and equal noted. No wheezes rales or rhonchi noted. No significant dullness noted on percussion. CHEST: Palpation of the chest wall shows no significant chest wall tenderness. No other significant abnormalities noted. 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 ABDOMEN: Soft, no significant tenderness appreciated, normoactive bowel sounds. No guarding, no rebound. No rigidity noted . No masses appreciated. EXTREMITIES: Pedal pulses are 1-2+, no calf tenderness noted. No clubbing or cyanosis. Negative pedal edema noted NEUROLOGICAL: Focused neurological exam showed no significant neurologic deficit. Normal speech, no focal weakness appreciated. PSYCH: Normal mood, normal affect. Judgment and insight within normal limits. SKIN: No significant ecchymosis, rash, ulcerations or signs of pruritus noted. MUSCULOSKELETAL EXAM: No significant joint swelling noted. Results Laboratory Results: 10/07/17 06:08 10/07/17 06:08 10/07/17 10/07/17 10/07/17 06:00 06:08 06:08 WBC 12.8 H RBC 4.95 Hgb 15.2 Hct 45.3 MCV 92 MCH 30.7 MCHC 33.6 RDW 15.7 H Plt Count 177 Seg Neutrophils % Not Reportable Lymphocytes % Not Reportable Monocytes % Not Reportable Eosinophils % Not Reportable Basophils % Not Reportable Absolute Neutrophils Not Reportable Absolute Lymphocytes Not Reportable Absolute Monocytes Not Reportable Absolute Eosinophils Not Reportable Absolute Basophils Not Reportable Carbonic Acid 1.36 H HCO3/H2CO3 Ratio 21:1 ABG pH 7.42 ABG pCO2 45.2 H ABG pO2 81.2 ABG HCO3 28.6 H ABG O2 Saturation 96.1 ABG Base Excess 3.4 FiO2 FLOW RATE 2 Sodium 140.1 Potassium 4.8 Chloride 100 Carbon Dioxide 26 Anion Gap 14 BUN 41 H Creatinine 0.85 Est GFR ( Amer) > 60 Est GFR (Non-Af Amer) > 60 Glucose 144 H Calcium 9.3 10/05/17 10/05/17 10/06/17 14:45 20:30 02:35 CK-MB (CK-2) 1.76 1.61 1.14 Troponin I < 0.012 < 0.012 < 0.012 EKG Comments: EKG today showing atrial fibrillation. Heart rate slightly on the high side. Impressions: Chest X-Ray 10/05/17 09:56 IMPRESSION: No acute changes Assessment & Plan - Diagnosis (1) Atrial flutter with rapid ventricular response Is this a current diagnosis for this admission?: Yes (2) COPD with exacerbation Is this a current diagnosis for this admission?: Yes (3) Tobacco abuse Is this a current diagnosis for this admission?: Yes - Notes Notes: Atrial flutter fibrillation: Noted today. Patient has disorganized to atrial fibrillation. Discussed that ablation may be difficult however will arrange for patient to be seen by steep tender as an outpatient since he is very reluctant to continue chronic anticoagulation. Informed that chronic anticoagulation for at least a month will be necessary. COPD with exacerbation: Patient has been advised to quit smoking. Patient's interviewed. It seems patient wakes up gasping for breath. He is also very short of breath. Discussed that he may benefit from evaluation for underlying sleep apnea syndrome. Discussed that he may also benefit from evaluation for chronic oxygen supplementation if noted to have nocturnal hypoxemia. Tobacco abuse: Patient now is agreeable to try to quit smoking. Medication changes performed. Patient to be discharged on small dose of digoxin and metoprolol succinate 100 mg p.o. twice daily. Side effects were discussed. - Time Time with patient: Greater than 35 minutes - Significant amount of time spent discussing prognosis, tobacco cessation, evaluating need for chronic oxygen supplementation, evaluation for underlying sleep apnea and also processed for referring him for atrial flutter fibrillation, side effects of medications etc. Medications reviewed and adjusted accordingly: Yes
--- NOTE | 2017-10-07 17:49 | PDOC CONSULTATION ---
Consultation Consult Date: 10/06/17 Attending physician:: SATNAM JOHNSON Consult reason:: chronicr espiratory failure History of Present Illness Admission Date/PCP: 10/05/17 14:30 History of Present Illness: Ishmael is a 57-year-old male with shortness of breath shortness of breath with activities of daily living. This acutely became worse and he sort help in the emergency room subsequently was admitted he admits to chronic cough intermittently productive of yellow hemoptysis his PPD status. He has no history of chronic lung disease as a child or adolescent. He admits to large amounts of smoke as a child as well as his pack a day for 40 years and continues to smoke. He has been exposed to chemicals paint fumes pain were without a respirator has been instructed. Spirits patient's. Denies any recent travel except he denies angina-like chest pains one pillow occasional PND occasional nocturnal cough. He admits to snoring restless sleep nocturia 2- 3 times per night unrestful sleep and excessive daytime somnolence. He has a history of atrial fibrillation shortness of breath sometimes history of heart failure Portions of this note were dictated during [employer] natural speaking voice recognition software. Variations in spelling and tvocabulary are possible and unintentional. Please notify the author if any discrepancies are noted. Past Medical History Cardiac Medical History: Reports: Atrial Fibrillation, Congestive Heart Failure Pulmonary Medical History: Reports: Chronic Obstructive Pulmonary Disease (COPD) Denies: Tuberculosis EENT Medical History: Reports: Cataracts Denies: Eyes, Ears, Nose Neurological Medical History: Denies: Migraine, Multiple Sclerosis Endocrine Medical History: Denies: Diabetes Mellitus Type 1, Diabetes Mellitus Type 2, Gestational Diabetes Renal/ Medical History: Reports: Nephrolithiasis Malignancy Medical History: Reports: None GI Medical History: Reports: Gastroesophageal Reflux Disease Denies: Cirrhosis, Crohn's Disease, Hepatitis, Peptic Ulcer Disease, Ulcerative Colitis Musculoskeltal Medical History: Denies: Arthritis, Fibromyalgia, Gout Skin Medical History: Denies: Eczema, Psoriasis Psychiatric Medical History: Reports: Personality Disorder, Tobacco Dependency Denies: Bipolar Disorder, Dementia, Depression, Post Traumatic Stress Disorder, Schizoaffective Disorder Traumatic Medical History: Reports: Pneumothorax Denies: Gunshot Wound, Stab Wound Hematology: Denies: Anemia, Sickle Cell Disease, Bleeding Tendencies Infectious Medical History: Denies: Hepatitis B, Hepatitis C Past Surgical History Past Surgical History: Reports: Other - cataracts Social History Information Source: Patient, Relative, [facility] Records 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 Lives with: Family Smoking Status: Current Every Day Smoker Cigarettes Packs Per Day: 0.5 Number of Years Smokin Last Time Smoked: 10/05/17 Passive smoke exposure as: Both Frequency of Alcohol Use: Heavy Hx Recreational Drug Use: No Drugs: None Hx Prescription Drug Abuse: No Do you have pets?: Yes Have you had any respiratory illnesses as a child?: No Have you been exposed to any sick contacts recently?: No Have you had any recent respiratory illnesses?: No Have you travelled outside of [place] in the past 12 months?: No - Advance Directive Resuscitation Status: Full Code Family History Family History: CAD, DM, Hypertension Parental Family History Reviewed: Yes Children Family History Reviewed: Yes Sibling(s) Family History Reviewed.: Yes Medication/Allergy Home Medications: Albuterol Sulfate [Proair HFA] 1 puff IH Q4HP PRN 10/05/17 Aspirin [Adult Low Dose Aspirin EC] 81 mg PO QAM 10/05/17 Umeclidinium Brm/Vilanterol Tr [Anoro Ellipta 62.5-25 Mcg INH] 1 puff IH DAILY 10/05/17 Digoxin [Lanoxin 0.125 mg Tablet] 0.125 mg PO DAILY #30 tablet 10/07/17 Furosemide [Lasix 40 mg Tablet] 40 mg PO DAILY #30 tablet 10/07/17 Metoprolol Succinate [Toprol Xl] 100 mg PO BID #60 tab.er.24h 10/07/17 Rivaroxaban [Xarelto 10 mg Tablet] 20 mg PO QHS #30 tablet 10/07/17 Allergies/Adverse Reactions: No Known Allergies Allergy (Verified 10/05/17 09:41) Review of Systems Constitutional: ABSENT: anorexia, chills, fatigue, night sweats Eyes: ABSENT: visual disturbances Ears: ABSENT: hearing changes Nose, Mouth, and Throat: ABSENT: mouth pain, vertigo Cardiovascular: PRESENT: dyspnea on exertion, orthropnea, palpitations Respiratory: PRESENT: cough, dyspnea. ABSENT: hemoptysis Gastrointestinal: ABSENT: abdominal pain, bloating, dysphagia, nausea, vomiting Genitourinary: PRESENT: difficulty urinating Musculoskeletal: ABSENT: deformity, joint swelling Integumentary: ABSENT: diaphoresis, lesions, pruritus Neurological: ABSENT: abnormal gait, abnormal movements, abnormal speech, convulsions, frequent falls, lack of coordination Psychiatric: ABSENT: hallucinations, homidical ideation, suicidal ideation Endocrine: PRESENT: polydipsia. ABSENT: polyphagia Hematologic/Lymphatic: PRESENT: easy bleeding Allergic/Immunologic: PRESENT: seasonal rhinorrhea Physical Exam Vital Signs: Temp Pulse Resp BP Pulse Ox 98 F 95 20 119/90 H 96 10/06/17 12:00 10/06/17 20:11 10/06/17 20:11 10/06/17 18:23 10/06/17 20:11 Intake & Output 10/05/17 10/06/17 10/07/17 06:59 06:59 06:59 Intake Total 854 742 Output Total 1085 1200 Balance -231 -458 Weight 80.5 kg General appearance: PRESENT: no acute distress, cooperative, disheveled, thin Head exam: PRESENT: atraumatic, normocephalic Eye exam: PRESENT: conjunctiva pale, EOMI. ABSENT: nystagmus Mouth exam: PRESENT: dry mucosa, neck supple, tongue midline Neck exam: ABSENT: carotid bruit, JVD, lymphadenopathy, thyromegaly Respiratory exam: PRESENT: decreased breath sounds, prolonged expiratory phas, rhonchi, symmetrical, unlabored, wheezes. ABSENT: accessory muscle use, chest wall tenderness, clear to auscultation alverto, crackles, rales, retraction, stridor , tachypnea Cardiovascular exam: PRESENT: irregular rhythm, +S1, +S2 Pulses: PRESENT: normal radial pulses GI/Abdominal exam: PRESENT: normal bowel sounds, soft. ABSENT: distended, guarding, mass, organolmegaly, rebound, tenderness Extremities exam: ABSENT: calf tenderness, joint swelling, pedal edema Musculoskeletal exam: ABSENT: deformity, dislocation, tenderness Neurological exam: PRESENT: alert, awake Psychiatric exam: PRESENT: normal mood Skin exam: PRESENT: dry, warm Results Laboratory Results: 10/06/17 05:55 10/06/17 05:55 10/06/17 10/06/17 10/06/17 05:55 05:55 05:55 WBC 14.2 H RBC 4.86 Hgb 14.9 Hct 44.6 MCV 92 MCH 30.7 MCHC 33.4 RDW 15.6 H Plt Count 191 Seg Neutrophils % Not Reportable Lymphocytes % Not Reportable Monocytes % Not Reportable Eosinophils % Not Reportable Basophils % Not Reportable Absolute Neutrophils Not Reportable Absolute Lymphocytes Not Reportable Absolute Monocytes Not Reportable Absolute Eosinophils Not Reportable Absolute Basophils Not Reportable Sodium 143.9 Potassium 4.2 Chloride 101 Carbon Dioxide 30 Anion Gap 13 BUN 25 H Creatinine 0.92 Est GFR ( Amer) > 60 Est GFR (Non-Af Amer) > 60 Glucose 136 H Calcium 9.5 Total Bilirubin 0.5 AST 21 ALT 45 Alkaline Phosphatase 93 Total Protein 6.2 L Albumin 3.9 Triglycerides 70 Cholesterol 155.90 LDL Cholesterol Direct 88 VLDL Cholesterol 14.0 HDL Cholesterol 66 TSH 0.45 L Free T4 0.91 10/05/17 10/05/17 10/06/17 14:45 20:30 02:35 CK-MB (CK-2) 1.76 1.61 1.14 Troponin I < 0.012 < 0.012 < 0.012 Impressions: Chest X-Ray 10/05/17 09:56 IMPRESSION: No acute changes Assessment & Plan - Diagnosis (1) Atrial flutter with rapid ventricular response Is this a current diagnosis for this admission?: Yes Plan: a fib rvr leading to chf (2) COPD with exacerbation Is this a current diagnosis for this admission?: Yes Plan: systemic steroids , Anora,Incruse (3) Tobacco abuse Is this a current diagnosis for this admission?: Yes Plan: Discussed at length the risk and dangers associated with continued tobacco use - Time Time Spent with patient: 50 min ICU
--- NOTE | 2017-10-07 17:58 | PDOC DISCHARGE SUMMARY ---
General - Admit/Disc Date/PCP Admission Date/Primary Care Provider: 10/05/17 14:30 Discharge Date: 10/07/17 - Discharge Diagnosis (1) Atrial flutter with rapid ventricular response Is this a current diagnosis for this admission?: Yes Summary: Pt was admitted to the hospital and placed on Cardiazem drip and Amiodarone. Pt was transition off IV medications and placed on oral medications. Heart rate was under better control. Pt suppose to follow up with Dr. De Leon for referral to Dr. Snyder for Ablation. (2) Volume overload Is this a current diagnosis for this admission?: Yes Summary: Secondary to A. Flutter: Pt was place on Lasix Daily. (3) COPD with exacerbation Is this a current diagnosis for this admission?: Yes Summary: Ruled out: Pt will continue home medications - Additional Information Resuscitation Status: Full Code Discharge Diet: Cardiac Discharge Activity: Activity As Tolerated Home Medications: Albuterol Sulfate [Proair HFA] 1 puff IH Q4HP PRN 10/05/17 Aspirin [Adult Low Dose Aspirin EC] 81 mg PO QAM 10/05/17 Umeclidinium Brm/Vilanterol Tr [Anoro Ellipta 62.5-25 Mcg INH] 1 puff IH DAILY 10/05/17 Digoxin [Lanoxin 0.125 mg Tablet] 0.125 mg PO DAILY #30 tablet 10/07/17 Furosemide [Lasix 40 mg Tablet] 40 mg PO DAILY #30 tablet 10/07/17 Metoprolol Succinate [Toprol Xl] 100 mg PO BID #60 tab.er.24h 10/07/17 Rivaroxaban [Xarelto 10 mg Tablet] 20 mg PO QHS #30 tablet 10/07/17 History of Present Illness Patient complains of: Heart Palpatations. History of Present Illness: CASSIDY ART is a 57 year old male presents with complaint of shortness of breath for several days. Pt states that at night he has noticed that he would wake up short of breath. Pt states that he went to his pulmonary doctor who treated to COPD exacerbation and pneumonia. Pt states that he still did not feel well so he went to his PCP who placed him on additional antibiotics. Pt states that his breathing is at it baseline. ER states that they spoke to Dr. De Leon who recommended starting Amiodarone. Hospital Course Hospital Course: Pt was admitted to our hospital for atrial flutter with RVR. Pt was placed on cardiazem and amiodarone. Cardiology was consulted and adjusted medications. Cardiology recommended pt follow with hospital cleaning specialist for ablation which will be arranged as outpatient. Pt was initial thought to have had a COPD exacerbation but pt symptoms were due to Volume overload due to A. Flutter with RVR. Pt's breathing as back to baseline after diuresis. Physical Exam Vital Signs: Temp Pulse Resp BP Pulse Ox 98 F 95 20 118/91 H 94 10/07/17 14:00 10/07/17 08:00 10/07/17 14:00 10/07/17 12:23 10/07/17 14:00 Intake & Output 10/06/17 10/07/17 10/08/17 06:59 06:59 06:59 Intake Total 854 742 450 Output Total 1085 1550 950 Balance -659 -808 -500 Weight 80.5 kg 81.3 kg General appearance: PRESENT: no acute distress, well-developed, well-nourished Head exam: PRESENT: atraumatic, normocephalic Eye exam: PRESENT: conjunctiva pink, EOMI. ABSENT: scleral icterus Ear exam: PRESENT: normal external ear exam Mouth exam: PRESENT: moist, tongue midline Neck exam: ABSENT: carotid bruit, JVD, lymphadenopathy, thyromegaly Respiratory exam: PRESENT: wheezes - scant wheezing Cardiovascular exam: PRESENT: irregular rhythm Pulses: PRESENT: normal dorsalis pedis pul Vascular exam: PRESENT: normal capillary refill GI/Abdominal exam: PRESENT: normal bowel sounds, soft. ABSENT: distended, guarding, mass, organolmegaly, rebound, tenderness Rectal exam: PRESENT: deferred Extremities exam: PRESENT: full ROM. ABSENT: calf tenderness, clubbing, pedal edema Neurological exam: PRESENT: alert, awake, oriented to person, oriented to place , oriented to time, oriented to situation, CN II-XII grossly intact. ABSENT: motor sensory deficit Psychiatric exam: PRESENT: appropriate affect, normal mood. ABSENT: homicidal ideation, suicidal ideation Skin exam: PRESENT: dry, intact, warm. ABSENT: cyanosis, rash Results Laboratory Results: 10/07/17 06:08 10/07/17 06:08 10/07/17 10/07/17 10/07/17 06:00 06:08 06:08 WBC 12.8 H RBC 4.95 Hgb 15.2 Hct 45.3 MCV 92 MCH 30.7 MCHC 33.6 RDW 15.7 H Plt Count 177 Seg Neutrophils % Not Reportable Lymphocytes % Not Reportable Monocytes % Not Reportable Eosinophils % Not Reportable Basophils % Not Reportable Absolute Neutrophils Not Reportable Absolute Lymphocytes Not Reportable Absolute Monocytes Not Reportable Absolute Eosinophils Not Reportable Absolute Basophils Not Reportable Carbonic Acid 1.36 H HCO3/H2CO3 Ratio 21:1 ABG pH 7.42 ABG pCO2 45.2 H ABG pO2 81.2 ABG HCO3 28.6 H ABG O2 Saturation 96.1 ABG Base Excess 3.4 FiO2 FLOW RATE 2 Sodium 140.1 Potassium 4.8 Chloride 100 Carbon Dioxide 26 Anion Gap 14 BUN 41 H Creatinine 0.85 Est GFR ( Amer) > 60 Est GFR (Non-Af Amer) > 60 Glucose 144 H Calcium 9.3 10/05/17 10/05/17 10/06/17 14:45 20:30 02:35 CK-MB (CK-2) 1.76 1.61 1.14 Troponin I < 0.012 < 0.012 < 0.012 Impressions: Chest X-Ray 10/05/17 09:56 IMPRESSION: No acute changes Plan Time Spent: Greater than 30 Minutes
[2017-10-07] MEDS ORDERED: METOPROLOL SUCCINATE 50 MG TAB.SR.24H PO SCH (22:00)
--- NOTE | 2017-10-08 09:08 | EKG REPORT ---
SEVERITY:- ABNORMAL ECG - ATRIAL FIBRILLATION, V-RATE 85-128 BORDERLINE RIGHT AXIS DEVIATION LOW VOLTAGE IN FRONTAL LEADS NONSPECIFIC T ABNORMALITIES, DIFFUSE LEADS : Confirmed by: Nadya De Leon 08-Oct-2017 09:07:34
[2017-10-08] MEDS ORDERED: DIGOXIN 0.125 MG TABLET PO SCH (10:00)
== END 2017-10-07 14:45 | disposition home or self-care (01) | DRG 310 ==
LOC: ER 09:29 → EH 14:30 → ICU 16:22
PROVIDERS: ADMIT Emergency Medicine; ATTEND Emergency Medicine
DX: I48.92 Unspecified atrial flutter (principal); J44.9 Chronic obstructive pulmonary disease, unspecified; F17.210 Nicotine dependence, cigarettes, uncomplicated; I50.9 Heart failure, unspecified; Z82.49 Family history of ischemic heart disease and other diseases of the circulatory system; Z83.3 Family history of diabetes mellitus; Z79.82 Long term (current) use of aspirin; Z79.899 Other long term (current) drug therapy
CPT/HCPCS: 36415; 71020; 80048; 80053; 80061; 82550; 82553; 82803; 83735; 83880; 84439; 84443; 84484; 85025; 85379; 85610; 85730; 93005; 93010; 93306; 94640; 96361; 96365; 96366; 96375; 99291; J0282; J1160; J1940; J2920; J2930; J3490; J7030; J7620

== ENCOUNTER 2017-12-27 10:03 | Inpatient (IN) | payer BC ==
[2017-12-27] MEDS ORDERED: IPRATROPIUM/ALBUTEROL 0.5-2.5 MG/3 ML AMPUL NEB ONE ×3 (10:23→10:24)
[2017-12-27] MEDS ORDERED: METHYLPREDNISOLONE INJ 125 MG/2 ML SDV IV ONE (10:24)
--- NOTE | 2017-12-27 10:25 | ER Document Report ---
ED Medical Screen (RME) - General Chief Complaint: Breathing Difficulty Stated Complaint: DIFFICULTY BREATHING Time Seen by Provider: 12/27/17 10:23 Mode of Arrival: Ambulatory Information source: Patient Notes: 57-year-old male history of COPD presents with complaints 1 week duration of cough shortness of breath. Patient was initially was productive was seen by primary care physician and was noted to be placed on prednisone 60 mg for 7 days as well as levofloxacin. Patient has breathing treatments at home states that he can go more than a few steps without being winded I have greeted and performed a rapid initial assessment of this patient. A comprehensive ED assessment and evaluation of the patient, analysis of test results and completion of the medical decision making process will be conducted by additional ED providers. PHYSICAL EXAMINATION: GENERAL: Well-appearing, well-nourished and in mild distress HEAD: Atraumatic, normocephalic. EYES: Pupils equal round extraocular movements intact, conjunctiva are normal. ENT: Nares patent NECK: Normal range of motion LUNGS: Faint end expiratory wheezing tachypnea noted Musculoskeletal: Normal range of motion NEUROLOGICAL: Normal speech, normal gait. PSYCH: Normal mood, normal affect. SKIN: Warm, Dry, normal turgor, no rashes or lesions noted. TRAVEL OUTSIDE OF THE [place] IN LAST 30 DAYS: No - Related Data Allergies/Adverse Reactions: No Known Allergies Allergy (Verified 12/27/17 10:06) Past Medical History - Social History Chew tobacco use (# tins/day): No Frequency of alcohol use: None Drug Abuse: None - Past Medical History Cardiac Medical History: Reports: Hx Atrial Fibrillation, Hx Congestive Heart Failure Pulmonary Medical History: Reports: Hx COPD Denies: Hx Tuberculosis Neurological Medical History: Denies: Hx Migraine Endocrine Medical History: Denies: Hx Diabetes Mellitus Type 1, Hx Diabetes Mellitus Type 2 Renal/ Medical History: Denies: Hx Peritoneal Dialysis GI Medical History: Reports: Hx Gastroesophageal Reflux Disease. Denies: Hx Cirrhosis, Hx Crohn's Disease, Hx Hepatitis, Hx Ulcerative Colitis Musculoskeltal Medical History: Denies Hx Arthritis, Denies Hx Fibromyalgia, Denies Hx Gout Skin Medical History: Denies Hx Eczema, Denies Hx Psoriasis Psychiatric Medical History: Reports: Hx Personality Disorder Denies: Hx Bipolar Disorder, Hx Dementia, Hx Depression, Hx Post Traumatic Stress Disorder, Hx Schizoaffective Disorder Traumatic Medical History: Reports: Hx Pneumothorax. Denies: Hx Gunshot Wound Infectious Medical History: Denies: Hx Hepatitis Past Surgical History: Reports: Other - cataracts - Immunizations Hx Diphtheria, Pertussis, Tetanus Vaccination: No History of Influenza Vaccine for 08/2017 - 01/2018 Season: No Physical Exam - Vital signs Vitals: Temp Pulse Resp BP Pulse Ox 97.6 F 81 26 H 149/89 H 92 12/27/17 10:08 12/27/17 10:08 12/27/17 10:08 12/27/17 10:08 12/27/17 10:08 Course - Vital Signs Vital signs: Temp Pulse Resp BP Pulse Ox 97.6 F 81 26 H 149/89 H 92 12/27/17 10:08 12/27/17 10:08 12/27/17 10:08 12/27/17 10:08 12/27/17 10:08
[2017-12-27 11:01] LABS: ABSOLUTE LYMPHOCYTES (AUTO) 0.5 10^3/uL (0.5-4.7); ABSOLUTE MONOCYTES (AUTO) 0.4 10^3/uL (0.1-1.4); ABSOLUTE NEUT (AUTO) 6.6 10^3/uL (1.7-8.2); BASOPHILS % (AUTO) 0.2 % (0-2); EOSINOPHILS % (AUTO) 0.1 % (0-6); HEMATOCRIT 49.6 % (37.9-51.0); HEMOGLOBIN 16.8 g/dL (13.5-17.0); LYMPHOCYTES % (AUTO) 6.9 % (13-45); MEAN CORPUSCULAR HEMOGLOBIN 30.8 pg (27.0-33.4); MEAN CORPUSCULAR HGB CONC 33.9 g/dL (32.0-36.0); MEAN CORPUSCULAR VOLUME 91 fl (80-97); MONOCYTES % (AUTO) 4.8 % (3-13); PLATELET COUNT 217 10^3/uL (150-450); RED BLOOD COUNT 5.45 10^6/uL (4.35-5.55); RED CELL DISTRIBUTION WIDTH 14.8 % (11.5-14.0); TOTAL CELLS COUNTED % (AUTO) 100 %; WHITE BLOOD COUNT 7.5 10^3/uL (4.0-10.5)
[2017-12-27 11:21] LABS: ALANINE AMINOTRANSFERASE 50 U/L (21-72); ALBUMIN 4.6 g/dL (3.5-5.0); ALKALINE PHOSPHATASE 84 U/L (38-126); ANION GAP 10 (5-19); ASPARTATE AMINO TRANSFERASE 42 U/L (17-59); BILIRUBIN,DIRECT 0.2 mg/dL (0.0-0.4); BILIRUBIN,TOTAL 0.3 mg/dL (0.2-1.3); BLOOD UREA NITROGEN 21 mg/dL (7-20); CALCIUM 9.9 mg/dL (8.4-10.2); CARBON DIOXIDE 32 mmol/L (22-30); CHLORIDE 102 mmol/L (98-107); CREATINE KINASE 52 U/L (55-170); GLUCOSE 109 mg/dL (75-110); POTASSIUM 4.7 mmol/L (3.6-5.0); TOTAL PROTEIN 7.1 g/dL (6.3-8.2)
[2017-12-27 11:33] LABS: CREATINE KINASE MB 0.61 ng/mL (<4.55)
[2017-12-27 11:35] LABS: TROPONIN I < 0.012 ng/mL
--- NOTE | 2017-12-27 11:43 | ER Document Report ---
ED Respiratory Problem - General Chief Complaint: Breathing Difficulty Stated Complaint: DIFFICULTY BREATHING Time Seen by Provider: 12/27/17 10:23 Mode of Arrival: Ambulatory Notes: The patient is a 57-year-old male, past medical history COPD, A. fib, presents with increasing shortness of breath over the past week. He saw his primary care physician earlier this week and was given prednisone and Levaquin. He is taking these medications and using his albuterol inhaler without much relief his symptoms. Patient does not wear oxygen at home. He says the shortness of breath is worse on exertion. Patient denies chest pain, cough, fevers, nausea, vomiting, leg swelling or back pain. TRAVEL OUTSIDE OF THE [place] IN LAST 30 DAYS: No - Related Data Allergies/Adverse Reactions: No Known Allergies Allergy (Verified 12/27/17 10:06) Past Medical History - General Information source: Patient - Social History Smoking Status: Current Every Day Smoker Chew tobacco use (# tins/day): No Frequency of alcohol use: None Drug Abuse: None Family History: CAD, DM, Hypertension Patient has suicidal ideation: No Patient has homicidal ideation: No - Past Medical History Cardiac Medical History: Reports: Hx Atrial Fibrillation, Hx Congestive Heart Failure Pulmonary Medical History: Reports: Hx COPD Denies: Hx Tuberculosis Neurological Medical History: Denies: Hx Migraine Endocrine Medical History: Denies: Hx Diabetes Mellitus Type 1, Hx Diabetes Mellitus Type 2 Renal/ Medical History: Denies: Hx Peritoneal Dialysis GI Medical History: Reports: Hx Gastroesophageal Reflux Disease. Denies: Hx Cirrhosis, Hx Crohn's Disease, Hx Hepatitis, Hx Ulcerative Colitis Musculoskeltal Medical History: Denies Hx Arthritis, Denies Hx Fibromyalgia, Denies Hx Gout Skin Medical History: Denies Hx Eczema, Denies Hx Psoriasis Psychiatric Medical History: Reports: Hx Personality Disorder Denies: Hx Bipolar Disorder, Hx Dementia, Hx Depression, Hx Post Traumatic Stress Disorder, Hx Schizoaffective Disorder Traumatic Medical History: Reports: Hx Pneumothorax. Denies: Hx Gunshot Wound Infectious Medical History: Denies: Hx Hepatitis Past Surgical History: Reports: Other - cataracts - Immunizations Hx Diphtheria, Pertussis, Tetanus Vaccination: No Review of Systems - Review of Systems Notes: REVIEW OF SYSTEMS: CONSTITUTIONAL: -fevers, -chills EENT: -eye pain, -difficulty swallowing, -nasal congestion CARDIOVASCULAR: -chest pain, -syncope. RESPIRATORY: -cough, +SOB GASTROINTESTINAL: -abdominal pain, -nausea, -vomiting, -diarrhea GENITOURINARY: -dysuria, -hematuria MUSCULOSKELETAL: -back pain, -neck pain SKIN: -rash or skin lesions. HEMATOLOGIC: -easy bruising or bleeding. LYMPHATIC: -swollen, enlarged glands. NEUROLOGICAL: -altered mental status or loss of consciousness, -headache, - neurologic symptoms PSYCHIATRIC: -anxiety, -depression. ALL OTHER SYSTEMS REVIEWED AND NEGATIVE. Physical Exam - Vital signs Vitals: Temp Pulse Resp BP Pulse Ox 97.6 F 81 26 H 149/89 H 92 12/27/17 10:08 12/27/17 10:08 12/27/17 10:08 12/27/17 10:12/27/17 10:08 - Notes Notes: PHYSICAL EXAMINATION: GENERAL: Well-appearing, well-nourished and in no acute distress. HEAD: Atraumatic, normocephalic. EYES: Pupils equal round and reactive to light, extraocular movements intact, sclera anicteric, conjunctiva are normal. ENT: nares patent, oropharynx clear without exudates. Moist mucous membranes. NECK: Normal range of motion, supple without lymphadenopathy LUNGS: Mild tachypnea, diffuse mild wheezing. Speaking in full sentences. HEART: Regular rate and rhythm without murmurs ABDOMEN: Soft, nontender, normoactive bowel sounds. No guarding, no rebound. No masses appreciated. EXTREMITIES: Normal range of motion, no pitting or edema. No cyanosis. NEUROLOGICAL: Cranial nerves grossly intact. Normal speech, normal gait. Normal sensory and motor exams. PSYCH: Normal mood, normal affect. SKIN: Warm, Dry, normal turgor, no rashes or lesions noted. Course - Re-evaluation Re-evalutation: Patient with a COPD exacerbation that has failed outpatient treatment, including outpatient steroids, Levaquin and home albuterol. When ambulating, his oxygenation goes down to 89% and he is not on oxygen at home. His wheezing returns and he says he is feeling very short of breath. His shortness of breath improves when he is at rest. Patient does not feel comfortable going home due to the increased wheezing and worsening DOZIER. Pt provided solumedrol and continuous albuterol with some relief of her SOB. Dr. Villela is his PMD and his Systems Programmer Analyst is Dr. Merritt. 12/27/17 13:[address] Jama and will admit patient as Inpatient to Telemetry for further evaluation and treatment for his shortness of breath. - Vital Signs Vital signs: Temp Pulse Resp BP Pulse Ox 97.6 F 81 21 H 106/86 H 96 12/27/17 10:08 12/27/17 10:08 12/27/17 11:33 12/27/17 11:33 12/27/17 11:33 - Laboratory Result Diagrams: 12/27/17 10:42 12/27/17 10:42 Laboratory results interpreted by me: 12/27/17 12/27/17 10:42 10:42 RDW 14.8 H Seg Neutrophils % 88.0 H Lymphocytes % 6.9 L Carbon Dioxide 32 H BUN 21 H Creatine Kinase 52 L - Diagnostic Test Radiology reviewed: Image reviewed, Reports reviewed Radiology results interpreted by me: CXR: NAD Discharge - Discharge Clinical Impression: COPD exacerbation Condition: Stable Disposition: ADMITTED INPATIENT Admitting Provider: Will - [facility] Admitted: Telemetry Referrals: VIC VILLELA MD [Primary Care Provider] - Follow up as needed
--- NOTE | 2017-12-27 12:08 | RADIOLOGY REPORT (SQ) ---
EXAM DESCRIPTION: CHEST PA/LAT COMPLETED DATE/TIME: 12/27/2017 11:51 am REASON FOR STUDY: SOB COMPARISON: Two-view chest 10/05/2017, 04/29/2017, CT chest 01/29/2014 EXAM PARAMETERS: NUMBER OF VIEWS: two views TECHNIQUE: Digital Frontal and Lateral radiographic views of the chest acquired. RADIATION DOSE: NA LIMITATIONS: none FINDINGS: LUNGS AND PLEURA: Stable pleural thickening along the left lateral chest with adjacent ban dlike lung parenchymal scarring. No acute pulmonary infiltrates. No pleural effusions. No pneumothorax. MEDIASTINUM AND HILAR STRUCTURES: No masses or contour abnormalities. HEART AND VASCULAR STRUCTURES: Heart normal size. No evidence for failure. There is pericardial madi cification along the dorsal and inferior aspect of the pericardium. Old sternotomy for CABG. BONES: Osteopenic with multiple old healed right lateral rib fractures HARDWARE: None in the chest. OTHER: No other significant finding. IMPRESSION: Chronic findings. No acute infiltrates. TECHNICAL DOCUMENTATION: JOB ID: [id number] [employer]- All Rights Reserved
[2017-12-27] MEDS ORDERED: ALBUTEROL SULFATE 0.083% NEB 2.5 MG/3 ML AMPUL NEB ONE (13:05)
[2017-12-27 14:18] LABS: VENOUS BLOOD BASE EXCESS 3.4 mmol/L; VENOUS BLOOD HCO3 30.5 mmol/L (20-32); VENOUS BLOOD PCO2 55.2 mmHg (35-63); VENOUS BLOOD PH 7.36 (7.30-7.42)
[2017-12-27] MEDS ORDERED: ACETAMINOPHEN 325 MG TABLET PO PRN (14:19)
[2017-12-27] MEDS ORDERED: ONDANSETRON HCL INJ/PF 4 MG/2 ML SDV IV PRN (14:19)
--- NOTE | 2017-12-27 14:49 | PDOC H&P ---
History of Present Illness Admission Date/PCP: 12/27/17 13:53 VIC VILLELA MD Patient complains of: Pt complaining of shortness of breath for approximately 2 weeks. History of Present Illness: CASSIDY ART is a 57 year old male presents with to our facility with complaint of shortness of breath for approximately 2 weeks. Patient states that he was seen by his pulmonary doctor where he was placed on steroids breathing treatments and antibiotics.. Patient states that his symptoms have not improved. Patient states that he feels that his breathing continues to worsen. Patient denies any fever but does admit to having cleared phlegm and nasal congestion. Patient also states that he feels as though his chest is tight due to difficulty breathing. Patient states that the last time he was admitted here he was sent divided and then transferred to [facility] where they had to remove his pericardial sac due to heavy calcification that was affecting ablation procedure. Past Medical History Cardiac Medical History: Reports: Atrial Fibrillation, Congestive Heart Failure Pulmonary Medical History: Reports: Chronic Obstructive Pulmonary Disease (COPD) Denies: Tuberculosis Neurological Medical History: Denies: Migraine Endocrine Medical History: Denies: Diabetes Mellitus Type 1, Diabetes Mellitus Type 2 GI Medical History: Reports: Gastroesophageal Reflux Disease Denies: Cirrhosis, Crohn's Disease, Hepatitis, Ulcerative Colitis Musculoskeltal Medical History: Denies: Arthritis, Fibromyalgia, Gout Skin Medical History: Denies: Eczema, Psoriasis Psychiatric Medical History: Reports: Personality Disorder Denies: Bipolar Disorder, Dementia, Depression, Post Traumatic Stress Disorder, Schizoaffective Disorder Traumatic Medical History: Reports: Pneumothorax Denies: Gunshot Wound Hematology: Denies: Anemia, Sickle Cell Disease, Bleeding Tendencies Past Surgical History Past Surgical History: Reports: Other - cataracts Social History Information Source: Patient Lives with: Spouse/Significant other Smoking Status: Current Every Day Smoker Frequency of Alcohol Use: Heavy Hx Recreational Drug Use: No Drugs: None Hx Prescription Drug Abuse: No - Advance Directive Resuscitation Status: Full Code Family History Family History: CAD, DM, Hypertension Parental Family History Reviewed: Yes Children Family History Reviewed: Yes Sibling(s) Family History Reviewed.: Yes Medication/Allergy Allergies/Adverse Reactions: No Known Allergies Allergy (Verified 12/27/17 10:06) Review of Systems Constitutional: PRESENT: weakness. ABSENT: chills, fever(s), headache(s), weight gain, weight loss Eyes: ABSENT: visual disturbances Ears: ABSENT: hearing changes Cardiovascular: ABSENT: chest pain, dyspnea on exertion, edema, orthropnea, palpitations Respiratory: PRESENT: cough, sputum Gastrointestinal: ABSENT: abdominal pain, constipation, diarrhea, hematemesis, hematochezia, nausea, vomiting Genitourinary: ABSENT: dysuria, hematuria Musculoskeletal: ABSENT: joint swelling Integumentary: ABSENT: rash, wounds Neurological: ABSENT: abnormal gait, abnormal speech, confusion, dizziness, focal weakness, syncope Psychiatric: ABSENT: anxiety, depression, homidical ideation, suicidal ideation Endocrine: ABSENT: cold intolerance, heat intolerance, polydipsia, polyuria Hematologic/Lymphatic: ABSENT: easy bleeding, easy bruising Physical Exam Vital Signs: Temp Pulse Resp BP Pulse Ox 97.6 F 81 16 106/86 H 96 12/27/17 10:08 12/27/17 10:08 12/27/17 13:00 12/27/17 11:33 12/27/17 13:00 General appearance: PRESENT: no acute distress, well-developed, well-nourished Head exam: PRESENT: atraumatic, normocephalic Eye exam: PRESENT: conjunctiva pink, EOMI. ABSENT: scleral icterus Ear exam: PRESENT: normal external ear exam Mouth exam: PRESENT: moist, tongue midline Neck exam: ABSENT: carotid bruit, JVD, lymphadenopathy, thyromegaly Respiratory exam: PRESENT: accessory muscle use, prolonged expiratory phas, unlabored, wheezes Cardiovascular exam: PRESENT: RRR. ABSENT: diastolic murmur, rubs, systolic murmur Pulses: PRESENT: normal dorsalis pedis pul Vascular exam: PRESENT: normal capillary refill GI/Abdominal exam: PRESENT: normal bowel sounds, soft. ABSENT: distended, guarding, mass, organolmegaly, rebound, tenderness Rectal exam: PRESENT: deferred Extremities exam: PRESENT: full ROM. ABSENT: calf tenderness, clubbing, pedal edema Musculoskeletal exam: PRESENT: full ROM Neurological exam: PRESENT: alert, awake, oriented to person, oriented to place , oriented to time, oriented to situation, CN II-XII grossly intact. ABSENT: motor sensory deficit Psychiatric exam: PRESENT: appropriate affect, normal mood. ABSENT: homicidal ideation, suicidal ideation Skin exam: PRESENT: dry, intact, warm. ABSENT: cyanosis, rash Results Laboratory Results: 12/27/17 14:00 VBG pH 7.36 VBG pCO2 55.2 VBG HCO3 30.5 VBG Base Excess 3.4 Impressions: Chest X-Ray 12/27/17 11:41 IMPRESSION: Chronic findings. No acute infiltrates. Assessment & Plan - Diagnosis (1) COPD with exacerbation Is this a current diagnosis for this admission?: Yes Plan: We will consult pulmonary. Will place patient on steroids, breathing treatments , and cefepime. Will await pulmonary's recommendation since they are more familiar with patient. We will also check CTA of chest to evaluate for possible PE and also to evaluate for evidence of pneumonia (2) Mild protein-calorie malnutrition Is this a current diagnosis for this admission?: Yes Plan: Will write for supplemental drinks. (3) Tobacco abuse Is this a current diagnosis for this admission?: Yes Plan: Encourage the patient discontinue tobacco use. (4) History of atrial flutter Is this a current diagnosis for this admission?: Yes Plan: Patient underwent ablation and pericardial sac removal due to heavy calcification. Awaiting pharmacy to reconcile patient's home medications. - Time Time Spent: 30 to 50 Minutes
[2017-12-27] MEDS ORDERED: CEFTRIAXONE SODIUM 1,000 MG in NORMAL SALINE 50 ML IV ONE (15:30)
--- NOTE | 2017-12-27 15:54 | RADIOLOGY REPORT (SQ) ---
EXAM DESCRIPTION: CTA CHEST COMPLETED DATE/TIME: 12/27/2017 3:25 pm REASON FOR STUDY: shortness of breath COMPARISON: 01/29/2014 TECHNIQUE: CT scan of the chest performed using helical scanning technique with dynamic intravenous contrast injection. Images reviewed with lung, soft tissue and bone windows. Reconstructed coronal and sagittal MPR images reviewed. Additional 3 dimensional post-processing performed to develop Maximal Intensity Projection images (WA P). All images stored on PACS. All CT scanners at this facility use dose modulation, iterative reconstruction, and/or weight based d osing when appropriate to reduce radiation dose to as low as reasonably achievable (ALARA). [facility]: Dose Right [facility]: CareDose [facility]: Dose Right [facility]: Teradose 4D [facility]: GenOil CONTRAST TYPE AND DOSE: contrast/concentration: Isovue 370.00 mg/ml; Total Contrast Delivered: 68.0 ml; Total Saline Delivered: 83.0 ml Contrast bolus adequate for pulmonary arteries and aorta. RENAL FUNCTION: GFR > 60. RADIATION DOSE: CT Rad equipment meets quality standard of care and radiation dose reduction techniq ues were employed. CTDIvol: 14.3 - 16.5 mGy. DLP: 637 mGy-cm. . LIMITATIONS: None. FINDINGS: LUNGS AND PLEURA: Peripheral areas of scarring. No evidence of pneumonia. No effusions. AORTA AND GREAT VESSELS: No aneurysm. No dissection. HEART: No pericardial effusion. Pericardial calcifications which are stable. PULMONARY ARTERIES: No emboli visualized in the main pulmonary arteries or the segmental branches. HILAR AND MEDIASTINAL STRUCTURES: No identified masses or abnormal nodes. HARDWARE: CABG. UPPER ABDOMEN: No significant findings. Limited exam. THYROID AND OTHER SOFT TISSUES: No masses. No adenopathy. BONES: No acute or significant finding. 3D MIPS: Confirm above findings. OTHER: No other significant finding. IMPRESSION: No PE. No acute findings. COMMENT: Quality ID # [id number]: Final reports with documentation of one or more dose reduction techniques (e.g., Automated exposure control, adjustment of the mA and/or kV according to patient size, use of iterative reconstruction technique) TECHNICAL DOCUMENTATION: JOB ID: [id number] [employer]- All Rights Reserved
[2017-12-27] MEDS: IPRATROPIUM/ALBUTEROL 0.5-2.5 MG/3 ML AMPUL NEB SCH ×2 (16:02→19:59)
[2017-12-27] MEDS: AZITHROMYCIN 500 MG in DEXTROSE 5%-WATER 250 ML IV SCH (19:33)
[2017-12-27] MEDS: SOTALOL HCL 80 MG TABLET PO SCH (20:59)
[2017-12-27] MEDS: HEPARIN SOD (PORCINE) 5,000 UNIT/ML 1 ML SYRINGE SUBCUT SCH (21:04)
[2017-12-27] MEDS: METHYLPREDNISOLONE INJ 125 MG/2 ML SDV IV SCH (21:05)
[2017-12-27] MEDS ORDERED: SOTALOL HCL 120 MG PO SCH (22:00)
[2017-12-28] MEDS: IPRATROPIUM/ALBUTEROL 0.5-2.5 MG/3 ML AMPUL NEB SCH ×4 (00:33→12:23)
[2017-12-28] MEDS: METHYLPREDNISOLONE INJ 125 MG/2 ML SDV IV SCH ×3 (06:49→23:19)
[2017-12-28] MEDS: LANSOPRAZOLE 30 MG TAB.RAP.DR PO SCH (06:49)
[2017-12-28] MEDS: HEPARIN SOD (PORCINE) 5,000 UNIT/ML 1 ML SYRINGE SUBCUT SCH ×3 (06:49→21:58)
[2017-12-28 07:00] LABS: ABSOLUTE LYMPHOCYTES (AUTO) 0.8 10^3/uL (0.5-4.7); ABSOLUTE MONOCYTES (AUTO) 0.4 10^3/uL (0.1-1.4); ABSOLUTE NEUT (AUTO) 7.5 10^3/uL (1.7-8.2); BASOPHILS % (AUTO) 0.3 % (0-2); HEMATOCRIT 45.1 % (37.9-51.0); HEMOGLOBIN 15.3 g/dL (13.5-17.0); LYMPHOCYTES % (AUTO) 8.8 % (13-45); MEAN CORPUSCULAR HEMOGLOBIN 30.8 pg (27.0-33.4); MEAN CORPUSCULAR HGB CONC 33.8 g/dL (32.0-36.0); MEAN CORPUSCULAR VOLUME 91 fl (80-97); MONOCYTES % (AUTO) 4.5 % (3-13); PLATELET COUNT 216 10^3/uL (150-450); RED BLOOD COUNT 4.96 10^6/uL (4.35-5.55); RED CELL DISTRIBUTION WIDTH 14.8 % (11.5-14.0); SEGMENTED NEUTROPHILS % (AUTO) 86.4 % (42-78); TOTAL CELLS COUNTED % (AUTO) 100 %; WHITE BLOOD COUNT 8.7 10^3/uL (4.0-10.5)
[2017-12-28 07:20] LABS: ALANINE AMINOTRANSFERASE 45 U/L (21-72); ALBUMIN 3.9 g/dL (3.5-5.0); ALKALINE PHOSPHATASE 73 U/L (38-126); ANION GAP 10 (5-19); ASPARTATE AMINO TRANSFERASE 28 U/L (17-59); BILIRUBIN,DIRECT 0.5 mg/dL (0.0-0.4); BILIRUBIN,TOTAL 0.5 mg/dL (0.2-1.3); BLOOD UREA NITROGEN 20 mg/dL (7-20); CALCIUM 9.9 mg/dL (8.4-10.2); CARBON DIOXIDE 30 mmol/L (22-30); CHLORIDE 102 mmol/L (98-107); GLUCOSE 140 mg/dL (75-110); MAGNESIUM 1.9 mg/dL (1.6-2.3); POTASSIUM 4.6 mmol/L (3.6-5.0); SODIUM 141.7 mmol/L (137-145); TOTAL PROTEIN 6.7 g/dL (6.3-8.2)
[2017-12-28 07:27] LABS: FREE T4 (FREE THYROXINE) 1.36 ng/dL (0.78-2.19)
[2017-12-28 07:41] LABS: THYROID STIMULATING HORMONE 0.1 uIU/mL (0.47-4.68)
[2017-12-28] MEDS ORDERED: VILANTER IH SCH (10:00)
[2017-12-28] MEDS ORDERED: UMECLIDIN IH SCH (10:00)
[2017-12-28] MEDS ORDERED: CEFTRIAXONE 1 GM/D5W RTU 1 GM/50 ML RTUPB IV SCH (10:00)
[2017-12-28] MEDS ORDERED: FLUTICASONE IH SCH (10:00)
[2017-12-28] MEDS ORDERED: [UNRECOGNIZED DRUG - OTHER] IH SCH (10:00)
[2017-12-28] MEDS: SOTALOL HCL 80 MG TABLET PO SCH ×2 (10:06→21:59)
[2017-12-28] MEDS: ASPIRIN 81 MG TABLET, ENT COATED PO SCH (10:07)
--- NOTE | 2017-12-28 13:11 | PDOC CONSULTATION ---
Consultation Consult Date: 12/28/17 Attending physician:: SATNAM JOHNSON Consult reason:: Acute/chronic respiratory failure History of Present Illness Admission Date/PCP: 12/27/17 13:53 VIC VILLELA MD History of Present Illness: CASSIDY ART is a 57 year old male presents well known to [facility] recently had cardiac surgery appears to be stable from that point of view he complains increasing shortness of breath over the last several days but denies chest pain or swelling in his feet he denies nausea, vomiting, fever, chills, rhinorrhea, sore throat, chest pain or edema. Denies history of chronic lung disease as a child or adolescent he states he has had no current hemoptysis his PPD status is unknown he admits to exposure large amounts of smoke passive smoke as a child as well as an adult. 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 He has cats and dogs but no birds or aquariums he denies any recent travel has occasional tightness in his chest sleeps on one pillow rare PND occasional nocturnal cough no edema. He admits to snoring, restless sleep, nocturia 1-2 times per night unrestful sleep and daytime somnolence. Past Medical History Cardiac Medical History: Reports: Atrial Fibrillation, Congestive Heart Failure Pulmonary Medical History: Reports: Chronic Obstructive Pulmonary Disease (COPD) Denies: Tuberculosis Neurological Medical History: Denies: Migraine Endocrine Medical History: Denies: Diabetes Mellitus Type 1, Diabetes Mellitus Type 2 GI Medical History: Reports: Gastroesophageal Reflux Disease Denies: Cirrhosis, Crohn's Disease, Hepatitis, Ulcerative Colitis Musculoskeltal Medical History: Denies: Arthritis, Fibromyalgia, Gout Skin Medical History: Denies: Eczema, Psoriasis Psychiatric Medical History: Reports: Personality Disorder Denies: Bipolar Disorder, Dementia, Depression, Post Traumatic Stress Disorder, Schizoaffective Disorder Traumatic Medical History: Reports: Pneumothorax Denies: Gunshot Wound Hematology: Denies: Anemia, Sickle Cell Disease, Bleeding Tendencies Past Surgical History Past Surgical History: Reports: Coronary Artery Bypass Graft, Other - cataracts Social History Information Source: Patient, Dr. 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 Lives with: Spouse/Significant other Smoking Status: Current Every Day Smoker Number of Years Smokin Last Time Smoked: 12/27/2017 Passive smoke exposure as: Both Frequency of Alcohol Use: None Hx Recreational Drug Use: No Drugs: None Hx Prescription Drug Abuse: No Do you have pets?: Yes Have you had any respiratory illnesses as a child?: No Have you been exposed to any sick contacts recently?: Yes Have you had any recent respiratory illnesses?: Yes Have you travelled outside of [place] in the past 12 months?: No - Advance Directive Resuscitation Status: Full Code Family History Family History: CAD, DM, Hypertension Parental Family History Reviewed: Yes Children Family History Reviewed: Yes Sibling(s) Family History Reviewed.: Yes Medication/Allergy Home Medications: Aspirin [Aspirin EC] 81 mg PO DAILY 12/27/17 Fluticasone/Umeclidin/Vilanter [Trelegy Ellipta 100-62.5-25] 1 puff IH DAILY 07/06 Levofloxacin [Levaquin 500 mg Tablet] 500 mg PO DAILY 12/27/17 Prednisone [Deltasone 20 mg Tablet] 60 mg PO QAM 12/27/17 Sotalol HCl [Sotalol Af] 120 mg PO Q12 12/27/17 Allergies/Adverse Reactions: No Known Allergies Allergy (Verified 12/27/17 10:06) Review of Systems Constitutional: PRESENT: chills, fatigue, night sweats, weight gain. ABSENT: anorexia, weight loss Eyes: ABSENT: visual disturbances Ears: ABSENT: hearing changes Nose, Mouth, and Throat: ABSENT: mouth pain, sore throat Cardiovascular: ABSENT: orthropnea, palpitations Gastrointestinal: PRESENT: heartburn, melena. ABSENT: abdominal pain, bloating , coffee ground emesis, dysphagia, hematemesis, hematochezia Genitourinary: PRESENT: difficulty urinating, nocturia. ABSENT: dysuria, hematuria Musculoskeletal: PRESENT: deformity Integumentary: ABSENT: lesions, pruritus, rash Neurological: ABSENT: abnormal gait, abnormal movements, abnormal speech, confusion, convulsions, focal weakness, frequent falls, lack of coordination, memory loss, restless legs Psychiatric: ABSENT: homidical ideation, suicidal ideation Endocrine: ABSENT: cold intolerance, heat intolerance, menstrual abnormalities, polydipsia, polyuria Hematologic/Lymphatic: PRESENT: easy bruising Allergic/Immunologic: ABSENT: seasonal rhinorrhea Physical Exam Vital Signs: Temp Pulse Resp BP Pulse Ox 97.6 F 79 21 H 149/92 H 94 12/27/17 10:08 12/27/17 22:33 12/28/17 08:13 12/28/17 08:13 12/28/17 08:13 General appearance: PRESENT: no acute distress, cooperative, disheveled, thin, well-developed. ABSENT: mild distress, morbidly obese, obese, severe distress Head exam: PRESENT: atraumatic, normocephalic Eye exam: PRESENT: conjunctiva pale, EOMI. ABSENT: conjunctival injection, conjunctiva pink, nystagmus, scleral icterus Mouth exam: PRESENT: dry mucosa, neck supple, tongue midline Neck exam: ABSENT: carotid bruit, JVD, lymphadenopathy, thyromegaly, tracheal deviation, tracheostomy Respiratory exam: PRESENT: decreased breath sounds, prolonged expiratory phas, rhonchi, symmetrical, wheezes. ABSENT: accessory muscle use, chest wall tenderness, clear to auscultation alverto, rales, retraction, stridor Cardiovascular exam: PRESENT: irregular rhythm Pulses: PRESENT: normal radial pulses GI/Abdominal exam: PRESENT: diminished bowel sounds, soft Extremities exam: ABSENT: clubbing, joint swelling Musculoskeletal exam: ABSENT: deformity, dislocation Neurological exam: PRESENT: alert, awake Psychiatric exam: PRESENT: normal mood Skin exam: PRESENT: dry, warm Results Laboratory Results: 12/28/17 06:40 12/28/17 06:40 12/27/17 12/28/17 12/28/17 14:00 06:40 06:40 WBC 8.7 RBC 4.96 Hgb 15.3 Hct 45.1 MCV 91 MCH 30.8 MCHC 33.8 RDW 14.8 H Plt Count 216 Seg Neutrophils % 86.4 H Lymphocytes % 8.8 L Monocytes % 4.5 Eosinophils % 0.0 Basophils % 0.3 Absolute Neutrophils 7.5 Absolute Lymphocytes 0.8 Absolute Monocytes 0.4 Absolute Eosinophils 0.0 Absolute Basophils 0.0 VBG pH 7.36 VBG pCO2 55.2 VBG HCO3 30.5 VBG Base Excess 3.4 Sodium 141.7 Potassium 4.6 Chloride 102 Carbon Dioxide 30 Anion Gap 10 BUN 20 Creatinine 0.60 Est GFR ( Amer) > 60 Est GFR (Non-Af Amer) > 60 Glucose 140 H Calcium 9.9 Magnesium 1.9 Total Bilirubin 0.5 AST 28 ALT 45 Alkaline Phosphatase 73 Total Protein 6.7 Albumin 3.9 TSH Free T4 02/09/18 06:40 WBC RBC Hgb Hct MCV MCH MCHC RDW Plt Count Seg Neutrophils % Lymphocytes % Monocytes % Eosinophils % Basophils % Absolute Neutrophils Absolute Lymphocytes Absolute Monocytes Absolute Eosinophils Absolute Basophils VBG pH VBG pCO2 VBG HCO3 VBG Base Excess Sodium Potassium Chloride Carbon Dioxide Anion Gap BUN Creatinine Est GFR ( Amer) Est GFR (Non-Af Amer) Glucose Calcium Magnesium Total Bilirubin AST ALT Alkaline Phosphatase Total Protein Albumin TSH 0.10 L Free T4 1.36 Impressions: Chest/Abdomen CTA 12/27/17 00:00 IMPRESSION: No PE. No acute findings. Chest X-Ray 12/27/17 11:41 IMPRESSION: Chronic findings. No acute infiltrates. Assessment & Plan - Diagnosis (1) COPD exacerbation Is this a current diagnosis for this admission?: Yes Plan: Steroids systemic and inhaled AeroChamber Daliresp (2) History of atrial flutter Is this a current diagnosis for this admission?: Yes Plan: Stable (3) Tobacco abuse Is this a current diagnosis for this admission?: Yes Plan: Transdermal nicotine patch
[2017-12-28] MEDS: CEFTRIAXONE SODIUM 1,000 MG in NORMAL SALINE 50 ML IV SCH (13:24)
[2017-12-28] MEDS ORDERED: ROFLUMILAST 500 MCG TABLET PO ONE (15:00)
[2017-12-28] MEDS: AZITHROMYCIN 500 MG in DEXTROSE 5%-WATER 250 ML IV SCH (18:03)
[2017-12-28] MEDS: BUDESONIDE NEB 0.5 MG/2 ML AMPUL NEB SCH (19:48)
--- NOTE | 2017-12-28 21:30 | PDOC PROGRESS REPORT ---
Subjective Progress Note for:: 12/28/17 Subjective:: Pt states he still having a hard time with breathing however he is not wearing oxygen Reason For Visit: ACUTE EXACERBATION OF CHRONIC OBSTRUCTIVE Physical Exam Vital Signs: Temp Pulse Resp BP Pulse Ox 98.4 F 80 18 134/87 H 100 12/28/17 16:05 12/28/17 16:05 12/28/17 16:05 12/28/17 16:05 12/28/17 16:05 Intake & Output 12/27/17 12/28/17 12/29/17 06:59 06:59 06:59 Intake Total 320 Output Total 500 Balance -180 General appearance: PRESENT: no acute distress, well-developed, well-nourished Head exam: PRESENT: atraumatic, normocephalic Eye exam: PRESENT: conjunctiva pink, EOMI. ABSENT: scleral icterus Ear exam: PRESENT: normal external ear exam Mouth exam: PRESENT: moist, tongue midline Neck exam: ABSENT: carotid bruit, JVD, lymphadenopathy, thyromegaly Respiratory exam: PRESENT: accessory muscle use, prolonged expiratory phas, wheezes. ABSENT: rales, rhonchi Cardiovascular exam: PRESENT: RRR. ABSENT: diastolic murmur, rubs, systolic murmur Pulses: PRESENT: normal dorsalis pedis pul Vascular exam: PRESENT: normal capillary refill GI/Abdominal exam: PRESENT: normal bowel sounds, soft. ABSENT: distended, guarding, mass, organolmegaly, rebound, tenderness Rectal exam: PRESENT: deferred Extremities exam: PRESENT: full ROM. ABSENT: calf tenderness, clubbing, pedal edema Neurological exam: PRESENT: alert, awake, oriented to person, oriented to place , oriented to time, oriented to situation, CN II-XII grossly intact. ABSENT: motor sensory deficit Psychiatric exam: PRESENT: appropriate affect, normal mood. ABSENT: homicidal ideation, suicidal ideation Skin exam: PRESENT: dry, intact, warm. ABSENT: cyanosis, rash Results Laboratory Results: 12/28/17 06:40 12/28/17 06:40 12/28/17 12/28/17 12/28/17 06:40 06:40 06:40 WBC 8.7 RBC 4.96 Hgb 15.3 Hct 45.1 MCV 91 MCH 30.8 MCHC 33.8 RDW 14.8 H Plt Count 216 Seg Neutrophils % 86.4 H Lymphocytes % 8.8 L Monocytes % 4.5 Eosinophils % 0.0 Basophils % 0.3 Absolute Neutrophils 7.5 Absolute Lymphocytes 0.8 Absolute Monocytes 0.4 Absolute Eosinophils 0.0 Absolute Basophils 0.0 Sodium 141.7 Potassium 4.6 Chloride 102 Carbon Dioxide 30 Anion Gap 10 BUN 20 Creatinine 0.60 Est GFR ( Amer) > 60 Est GFR (Non-Af Amer) > 60 Glucose 140 H Calcium 9.9 Magnesium 1.9 Total Bilirubin 0.5 AST 28 ALT 45 Alkaline Phosphatase 73 Total Protein 6.7 Albumin 3.9 TSH 0.10 L Free T4 1.36 Impressions: Chest/Abdomen CTA 12/27/17 00:00 IMPRESSION: No PE. No acute findings. Chest X-Ray 12/27/17 11:41 IMPRESSION: Chronic findings. No acute infiltrates. Assessment & Plan - Diagnosis (1) COPD with exacerbation Is this a current diagnosis for this admission?: Yes Plan: Per Pulmonary (2) Mild protein-calorie malnutrition Is this a current diagnosis for this admission?: Yes Plan: supplemental drinks. (3) Tobacco abuse Is this a current diagnosis for this admission?: Yes Plan: Encourage the patient discontinue tobacco use. (4) History of atrial flutter Is this a current diagnosis for this admission?: Yes Plan: Patient underwent ablation and pericardial sac removal due to heavy calcification. - Time Time Spent with patient: 15-24 minutes
[2017-12-29] MEDS: HEPARIN SOD (PORCINE) 5,000 UNIT/ML 1 ML SYRINGE SUBCUT SCH ×3 (05:33→22:00)
[2017-12-29] MEDS: METHYLPREDNISOLONE INJ 125 MG/2 ML SDV IV SCH ×3 (05:33→22:01)
[2017-12-29] MEDS: LANSOPRAZOLE 30 MG TAB.RAP.DR PO SCH (05:33)
[2017-12-29] MEDS: BUDESONIDE NEB 0.5 MG/2 ML AMPUL NEB SCH ×2 (09:16→19:38)
--- NOTE | 2017-12-29 10:38 | PROGRESS NOTE E ---
Progress Note NAME: CASSIDY ART : 1960 AGE: 57Y DATE: 12/29/2017 ROOM: 304 SUBJECTIVE: The patient is currently lying in bed. He states that he feels no different than when he came in. He complains of shortness of breath now for 6 weeks. Patient's CTA was essentially unremarkable. Patient denies any nausea, vomiting, or diarrhea. No dizziness or chest pain. No fever or chills. The patient has been afebrile. His blood pressure has been in a good range. The patient does not voice any other concerns at this time. REVIEW OF SYSTEMS: Rest of the review of systems negative. MEDICATIONS: Have been reviewed. PHYSICAL EXAMINATION: GENERAL: The patient is a 57-year-old male who is awake, alert, and oriented to person, place, time, and situation. He is verbal, conversational, and does not appear to be in any acute distress. VITAL SIGNS: Temperature 98.1, pulse 83, respirations 16, blood pressure 151/84, oxygen saturation is 92% on room air. SKIN: Warm and dry. No rash. He is not diaphoretic. HEENT: Pupils equal, round, reactive to light and accommodation. Conjunctivae are pink. No evidence of JVP. CARDIOVASCULAR: Heart is regular. There is no rub. CHEST: Quite diminished with faint wheezing noted throughout. Symmetrical, unlabored. ABDOMEN: Soft, nontender, nondistended. BACK: No CVA tenderness or sacral edema. EXTREMITIES: No clubbing, cyanosis, edema. PSYCHIATRIC: Appropriate affect. Pleasant mood. DIAGNOSTICS: Lab values are as follow: Hematology obtained on 12/28/2017: WBCs are 8.7, hemoglobin is 15.3, hematocrit is 45.1, platelet count of 216,000. Chemistry obtained on 12/28/2017: Sodium is 141, potassium 4.6, chloride is 102, carbon dioxide 30, BUN 20, creatinine is 0.60, glucose 140, calcium is 9.9, magnesium is 1.9, total bilirubin is 0.5, AST 20, ALT is 45, alk pos 73, total protein 6.7, albumin 3.9. IMPRESSION AND PLAN: 1. CHRONIC OBSTRUCTIVE PULMONARY DISEASE EXACERBATION. The patient is hemodynamically very stable. Will encourage ambulation with pulse oximetry and will continue steroids. Do appreciate Pulmonology's input on this. 2. HISTORY OF ATRIAL FIBRILLATION. The patient underwent an ablation. Appears to be in sinus rhythm. 3. MILD PROTEIN CALORIE MALNOURISHMENT. Encourage supplements. 4. TOBACCO DEPENDENCY CONTINUOUS. Spent 3 minutes discussing smoking cessation education and patient declines any pharmacological intervention at this time stating that he is down to 3 cigarettes a day. 5. HYPERTENSION. The patient's blood pressures have been slightly elevated. Some of this may be a steroidal effect as the patient does not take any chronic blood pressure medications. DISPOSITION: The patient is a FULL CODE. Pending patient's symptomatology and diagnostic findings, will reevaluate in the a.m. Time spent on this followup including assessment, plan, physical examination, patient education, and review of records is 25 minutes. DICTATING PHYSICIAN: MED BARNES NP [id number] PHY#: [id number] ID: [id number] JOB#: [id number] ACCT: [id number] cc: >
[2017-12-29] MEDS: SOTALOL HCL 80 MG TABLET PO SCH ×2 (10:49→22:00)
[2017-12-29] MEDS: ASPIRIN 81 MG TABLET, ENT COATED PO SCH (10:50)
[2017-12-29 11:04] LABS: ARTERIAL BLOOD BASE EXCESS 5.6 mmol/L; ARTERIAL BLOOD FIO2 ROOM AIR; ARTERIAL BLOOD H2CO3 1.21 mmol/L (1.05-1.35); ARTERIAL BLOOD HCO3 29.5 mmol/L (20-26); ARTERIAL BLOOD O2 SATURATION 92.1 % (94-98); ARTERIAL BLOOD PCO2 40.2 mmHg (35-45); ARTERIAL BLOOD PH 7.48 (7.35-7.45); ARTERIAL BLOOD PO2 58.2 mmHg (80-100); ARTERIAL BLOOD TOTAL CO2 30.7 mmol/L (23-27)
[2017-12-29] MEDS ORDERED: LEVALBUTEROL HCL NEB 1.25 MG/3 ML AMPUL NEB PRN (11:14)
[2017-12-29] MEDS ORDERED: FUROSEMIDE INJ/PF 20 MG/2 ML SDV IV ONE ×2 (11:15→19:15)
[2017-12-29] MEDS ORDERED: GUAIFENESIN 600 MG TABLET.SA PO ONE (12:00)
[2017-12-29] MEDS: CEFTRIAXONE SODIUM 1,000 MG in NORMAL SALINE 50 ML IV SCH (12:38)
[2017-12-29] MEDS: IPRATROPIUM/ALBUTEROL 0.5-2.5 MG/3 ML AMPUL NEB SCH ×2 (14:38→19:38)
[2017-12-29] MEDS: AZITHROMYCIN 500 MG in DEXTROSE 5%-WATER 250 ML IV SCH (17:25)
[2017-12-29] MEDS ORDERED: FUROSEMIDE INJ/PF 20 MG/2 ML SDV ONE (18:59)
[2017-12-29] MEDS ORDERED: LORAZEPAM 0.5 MG TABLET ONE (19:01)
[2017-12-29] MEDS ORDERED: LORAZEPAM 0.5 MG TABLET PO ONE (19:15)
[2017-12-29 19:22] LABS: ARTERIAL BLOOD BASE EXCESS 1.7 mmol/L; ARTERIAL BLOOD FIO2 ROOM AIR; ARTERIAL BLOOD H2CO3 1.23 mmol/L (1.05-1.35); ARTERIAL BLOOD HCO3 26.2 mmol/L (20-26); ARTERIAL BLOOD O2 SATURATION 88.8 % (94-98); ARTERIAL BLOOD PCO2 40.8 mmHg (35-45); ARTERIAL BLOOD PH 7.43 (7.35-7.45); ARTERIAL BLOOD PO2 53.9 mmHg (80-100); ARTERIAL BLOOD TOTAL CO2 27.5 mmol/L (23-27)
[2017-12-29] MEDS: GUAIFENESIN 600 MG TABLET.SA PO SCH (22:00)
[2017-12-30] MEDS: IPRATROPIUM/ALBUTEROL 0.5-2.5 MG/3 ML AMPUL NEB SCH ×3 (01:55→13:52)
[2017-12-30] MEDS ORDERED: SOTALOL HCL 80 MG TABLET PO SCH (06:00)
[2017-12-30] MEDS: HEPARIN SOD (PORCINE) 5,000 UNIT/ML 1 ML SYRINGE SUBCUT SCH ×2 (06:35→13:25)
[2017-12-30] MEDS: LANSOPRAZOLE 30 MG TAB.RAP.DR PO SCH (06:35)
[2017-12-30] MEDS: METHYLPREDNISOLONE INJ 125 MG/2 ML SDV IV SCH ×2 (06:36→13:25)
[2017-12-30] MEDS: BUDESONIDE NEB 0.5 MG/2 ML AMPUL NEB SCH (07:30)
[2017-12-30] MEDS: ASPIRIN 81 MG TABLET, ENT COATED PO SCH (10:38)
[2017-12-30] MEDS: GUAIFENESIN 600 MG TABLET.SA PO SCH (10:38)
[2017-12-30 11:46] VITALS: BP 138/89
[2017-12-30] MEDS: CEFTRIAXONE SODIUM 1,000 MG in NORMAL SALINE 50 ML IV SCH (12:49)
--- NOTE | 2017-12-30 13:18 | DISCHARGE SUMMARY E ---
Discharge Summary NAME: CASSIDY ART : 1960 AGE: 57Y ADMITTED: 12/27/2017 DISCHARGED: 12/30/2017 CODE STATUS: FULL CODE. PRIMARY CARE PROVIDER: Víctor Pineda MD [facility] DIRECTOR: Dr. Merritt DISCHARGE DIAGNOSES: Include: 1. CHRONIC OBSTRUCTIVE PULMONARY DISEASE EXACERBATION. 2. HISTORY OF ATRIAL FIBRILLATION STATUS POST ABLATION. 3. MILD PROTEIN CALORIE MALNOURISHMENT. 4. TOBACCO DEPENDENCY, CONTINUOUS. 5. HYPERTENSION. 6. GENERAL ANXIETY DISORDER. DISCHARGE MEDICATIONS: Include: 1. Prednisone 60-mg taper. 2. Ativan 0.5 mg p.o. q. 6 hours p.r.n., 10 tablets, 0 refills. 3. Sotalol 120 mg p.o. q. 12 hours. 4. Levaquin 500 mg p.o. daily times 3 more doses. 5. Ellipta 100/62.5 mcg 1 puff inhalation daily. 6. Aspirin 81 mg p.o. daily. DIET: Heart healthy. ACTIVITY: As tolerated. CONDITION: Good. DIAGNOSTICS: Lab values are as follows. Hematology obtained on 12/28/2017: WBCs are 8.7. Hemoglobin is 15.3. Hematocrit is 43.1. Platelet count is 316,000. ABG obtained on 12/29/2017: The pH is 7.43, pCO2 is 40.8, pO2 is 58.2, bicarb is 26.2, oxygen saturation is 92.1%. Chemistry obtained on 12/28/2017: Sodium is 141, potassium 4.6, chloride is 102, carbon dioxide 30. BUN 20, creatinine is 0.60, glucose 140. Calcium is 9.9. Magnesium is 1.9. Bilirubin is 0.5. AST 28, ALT is 45, alk phos 73. CK 52, CK-MB is 0.61, troponin is 0.012. BNP is 206. Total protein 6.7. Albumin 3.9. Free T4 is 1.36. Microbiology: Blood cultures obtained on 12/27/2017 reveal no growth. CTA of the chest obtained on 12/27/2017 reveals no PE or acute findings. Chest x-ray obtained on 12/27/2017 reveals chronic changes of lung parenchymal scarring. PHYSICAL EXAMINATION: GENERAL: On examination, the patient is a well-developed, well-nourished 57-year-old male who is awake, alert. He is oriented to person, place, time and situation. He is verbal and conversational and does not appear to be distressed. VITAL SIGNS FOLLOWS: Temperature is 98.4. Pulse 84. Respirations 16. Blood pressure is 138/89. Oxygen saturation is 94% on room air. SKIN: Warm and dry. No rash. He is not diaphoretic. HEENT: Pupils equal, round and reactive to light and accommodation. Conjunctivae are pink. NECK: No evidence of JVP. CARDIOVASCULAR SYSTEM: Heart is regular. No rub. CHEST: Quite diminished, symmetrical, unlabored. No wheezes. ABDOMEN: Soft. Nontender. Nondistended. BACK: No CVA tenderness or sacral edema. EXTREMITIES: No clubbing, cyanosis, edema. PSYCHIATRIC: Appropriate affect. Pleasant mood. HISTORY OF PRESENT ILLNESS: The patient is a 57-year-old male with a past medical history of chronic obstructive lung disease, tobacco dependency, and previous ablation. The patient presented to the Emergency Department with a chief complaint of shortness of breath which had gone on for about 2 weeks. The patient stated that he had been seen by his pulmonary doctor, where he was placed on steroids and breathing treatments as well as antibiotics. The patient stated his symptoms had not improved. The patient feels that his breathing continues to get worse. The patient denies any fever but does admit to having clear phlegm and nasal congestion. The patient states that he feels that although his chest is tight due to difficulty breathing, he was admitted here and sent to [facility] in October, where he had a pericardial sac ablation due to heavy calcifications and subsequent ablation for atrial fibrillation. Upon presentation to the Emergency Department, the patient was found to be afebrile without tachycardia. The patient was oxygenating 92% on room air, and the patient was tachypneic around 30. The patient was given nebulizers and steroids and was referred to the hospitalist for admission and management. HOSPITAL COURSE: Patient was admitted to [facility]. The patient did not get any symptom relief and continued to have episodes of acute dyspnea with tachypnea but had no hypoxia. The patient does have evidence of chronic lung disease, and ABGs are reflective of this. However, the patient had no acute decompensation. The patient did have some fine crackles in his bases and was diuresed with not significant improvement of symptoms. It appeared the patient was having episodes of what appeared to be panic attacks. The patient responded very well to Ativan. The patient states that his anxieties are made much worse by steroids. Therefore, these do need to be aggressively tapered. The patient was seen by Dr. Merritt with Pulmonology, and the patient does have an appointment on Sunday to follow up with him. The patient is quite eager for discharge. DISCHARGE PLANNIN. The patient is to follow with his primary care provider as needed. 2. The patient is to follow up with Dr. Merritt on 01/01/2018, at scheduled. TIME SPENT: Time spent on this discharge including assessment, plan, physical examination, patient education, review of records is 25 minutes. DICTATING PHYSICIAN: MED BARNES NP [id number] PHY#: [id number] ID: [id number] JOB#: [id number] ACCT: [id number] cc:Marcella SALINAS NP >
[2017-12-30] MEDS ORDERED: LORAZEPAM 0.5 MG TABLET ONE (13:24)
[2017-12-30] MEDS ORDERED: LORAZEPAM 0.5 MG TABLET PO ONE (14:00)
== END 2017-12-30 13:56 | disposition home or self-care (01) | DRG 191 ==
LOC: ER 10:03 → EH 13:53 → 3N 12-28 13:02
PROVIDERS: ADMIT Emergency Medicine; ATTEND Emergency Medicine
PROC: 3E0F73Z Introduction of Anti-inflammatory into Respiratory Tract, Via Natural or Artificial Opening (ICD-10-PCS; principal; 2017-12-27)
DX: J44.1 Chronic obstructive pulmonary disease with (acute) exacerbation (principal); E44.1 Mild protein-calorie malnutrition; I48.92 Unspecified atrial flutter; I48.91 Unspecified atrial fibrillation; I10 Essential (primary) hypertension; F41.1 Generalized anxiety disorder; F17.200 Nicotine dependence, unspecified, uncomplicated; Z79.82 Long term (current) use of aspirin; I50.9 Heart failure, unspecified; Z95.1 Presence of aortocoronary bypass graft; Z82.49 Family history of ischemic heart disease and other diseases of the circulatory system; Z83.3 Family history of diabetes mellitus; K21.9 Gastro-esophageal reflux disease without esophagitis; Z68.20 Body mass index [BMI] 20.0-20.9, adult
CPT/HCPCS: 36415; 36600; 71046; 71275; 80053; 82550; 82553; 82803; 83735; 83880; 84439; 84443; 84484; 85025; 87040; 94640; 94799; 96374; 99285; J0456; J0696; J1644; J1940; J2930; J3490; J7060; J7620

== ENCOUNTER → 2018-02-20 | Outpatient (CLI) | payer BC ==
[2018-02-20 16:25] LABS: ANION GAP 8 (5-19); BLOOD UREA NITROGEN 11 mg/dL (7-20); CARBON DIOXIDE 31 mmol/L (22-30); CHLORIDE 103 mmol/L (98-107); GLUCOSE 93 mg/dL (75-110); POTASSIUM 4.3 mmol/L (3.6-5.0); SODIUM 142.2 mmol/L (137-145)
== END ==
LOC: OD 14:55
PROVIDERS: ATTEND Internal Medicine
DX: I48.0 Paroxysmal atrial fibrillation (principal)
CPT/HCPCS: 36415; 80048

== ENCOUNTER 2018-04-15 08:13 | Observation (INO) | payer BC ==
[2018-04-15] MEDS ORDERED: IPRATROPIUM/ALBUTEROL 0.5-2.5 MG/3 ML AMPUL NEB ONE ×3 (08:27→08:28)
[2018-04-15] MEDS ORDERED: METHYLPREDNISOLONE INJ 125 MG/2 ML SDV IV ONE (08:29)
[2018-04-15] MEDS ORDERED: MAGNESIUM SULFATE/D5W 1 GM/100 ML RTUPB IV ONE (08:30)
--- NOTE | 2018-04-15 08:30 | ER Document Report ---
ED Respiratory Problem - General Chief Complaint: Shortness Of Breath Stated Complaint: DIFFICULTY BREATHING Time Seen by Provider: 04/15/18 08:22 TRAVEL OUTSIDE OF THE [place] IN LAST 30 DAYS: No - HPI Notes: Critically ill-appearing 57-year-old man with lengthy history of COPD presents with hypoxia. Pulse ox at home was 86%. On presentation to the emergency department is at 90% on room air. Patient wears 2 L nasal cannula at night. States for the last 3 days he has been having more more complete breathing increasing cough and sputum production. Difficulty clearing the thick sputum. Patient denies fever chills or chest pain, denies diaphoresis, nausea, vomiting , diarrhea. - Related Data Allergies/Adverse Reactions: No Known Allergies Allergy (Verified 04/15/18 08:30) Past Medical History - Social History Smoking Status: Current Every Day Smoker Family History: CAD, DM, Hypertension - Past Medical History Cardiac Medical History: Reports: Hx Atrial Fibrillation, Hx Congestive Heart Failure Pulmonary Medical History: Reports: Hx COPD Denies: Hx Tuberculosis Neurological Medical History: Denies: Hx Migraine Endocrine Medical History: Denies: Hx Diabetes Mellitus Type 1, Hx Diabetes Mellitus Type 2 Renal/ Medical History: Denies: Hx Peritoneal Dialysis GI Medical History: Reports: Hx Gastroesophageal Reflux Disease. Denies: Hx Cirrhosis, Hx Crohn's Disease, Hx Hepatitis, Hx Ulcerative Colitis Musculoskeltal Medical History: Denies Hx Arthritis, Denies Hx Fibromyalgia, Denies Hx Gout Skin Medical History: Denies Hx Eczema, Denies Hx Psoriasis Psychiatric Medical History: Reports: Hx Personality Disorder Denies: Hx Bipolar Disorder, Hx Dementia, Hx Depression, Hx Post Traumatic Stress Disorder, Hx Schizoaffective Disorder Traumatic Medical History: Reports: Hx Pneumothorax. Denies: Hx Gunshot Wound Infectious Medical History: Denies: Hx Hepatitis Past Surgical History: Reports: Hx Coronary Artery Bypass Graft, Other - cataracts - Immunizations Hx Diphtheria, Pertussis, Tetanus Vaccination: No Review of Systems - Review of Systems Notes: REVIEW OF SYSTEMS: CONSTITUTIONAL: -fevers, -chills EENT: -eye pain, -difficulty swallowing, -nasal congestion CARDIOVASCULAR: -chest pain, -syncope. RESPIRATORY: For cough, shortness of breath. GASTROINTESTINAL: -abdominal pain, -nausea, -vomiting, -diarrhea GENITOURINARY: -dysuria, -hematuria MUSCULOSKELETAL: -back pain, -neck pain SKIN: -rash or skin lesions. HEMATOLOGIC: -easy bruising or bleeding. LYMPHATIC: -swollen, enlarged glands. NEUROLOGICAL: -altered mental status or loss of consciousness, -headache, - neurologic symptoms PSYCHIATRIC: -anxiety, -depression. ALL OTHER SYSTEMS REVIEWED AND NEGATIVE. Physical Exam - Vital signs Vitals: Temp Pulse Resp BP Pulse Ox 98.9 F 83 32 H 127/75 H 90 L 04/15/18 08:18 04/15/18 08:18 04/15/18 08:18 04/15/18 08:18 04/15/18 08:18 - Notes Notes: PHYSICAL EXAMINATION: GENERAL: Well-appearing, well-nourished and in severe acute distress. HEAD: Atraumatic, normocephalic. EYES: Pupils equal round and reactive to light, extraocular movements intact, sclera anicteric, conjunctiva are normal. ENT: nares patent, oropharynx clear without exudates. Moist mucous membranes. NECK: Normal range of motion, supple without lymphadenopathy LUNGS: Respiratory distress, biphasic wheezing and rhonchi HEART: Regular rate and rhythm without murmurs ABDOMEN: Soft, nontender, normoactive bowel sounds. No guarding, no rebound. No masses appreciated. EXTREMITIES: Normal range of motion, no pitting or edema. No cyanosis. NEUROLOGICAL: Cranial nerves grossly intact. Normal speech, normal gait. Normal sensory and motor exams. PSYCH: Normal mood, normal affect. SKIN: Warm, Dry, normal turgor, no rashes or lesions noted. Course - Re-evaluation Re-evalutation: 04/15/18 09:57 Pleasant 57-year-old male presents in severe respiratory distress mild hypoxia. Patient given multiple breathing treatments, magnesium, IV steroids. Patient is only moderate improvement in symptoms. Patient's EKG is no ischemic changes. Extensive labs relatively unremarkable. Patient has no troponin elevation. Patient will be admitted to the hospital for his hypoxia, COPD exacerbation and close monitoring. - Vital Signs Vital signs: Temp Pulse Resp BP Pulse Ox 98.9 F 83 30 H 122/80 99 04/15/18 08:18 04/15/18 08:18 04/15/18 09:01 04/15/18 09:01 04/15/18 09:01 - Laboratory Result Diagrams: 04/15/18 08:25 04/15/18 08:25 Laboratory results interpreted by me: 04/15/18 04/15/18 08:25 08:25 RDW 14.8 H Seg Neuts % (Manual) 86 H Band Neutrophils % 1 L Lymphocytes % (Manual) 2 L Sodium 145.1 H Carbon Dioxide 31 H BUN 22 H Critical Care Note - Critical Care Note Total time excluding time spent on procedures (mins): 38 Discharge - Discharge Clinical Impression: COPD exacerbation, History of atrial flutter, Tobacco abuse, Hypoxia Respiratory failure Qualifiers: Chronicity: acute on chronic Respiratory failure complication: hypoxia Qualified Code(s): J96.21 - Acute and chronic respiratory failure with hypoxia Condition: Stable Disposition: ADMITTED INPATIENT Admitting Provider: Hospitalist - Dr. Lin Unit Admitted: Telemetry
[2018-04-15 08:49] LABS: HEMATOCRIT 48.8 % (37.9-51.0); HEMOGLOBIN 16.6 g/dL (13.5-17.0); MEAN CORPUSCULAR HEMOGLOBIN 31.2 pg (27.0-33.4); MEAN CORPUSCULAR VOLUME 92 fl (80-97); PLATELET COUNT 220 10^3/uL (150-450); RED BLOOD COUNT 5.31 10^6/uL (4.35-5.55); RED CELL DISTRIBUTION WIDTH 14.8 % (11.5-14.0); WHITE BLOOD COUNT 8.4 10^3/uL (4.0-10.5)
[2018-04-15 08:50] LABS: ANION GAP 12 (5-19); BLOOD UREA NITROGEN 22 mg/dL (7-20); CARBON DIOXIDE 31 mmol/L (22-30); CHLORIDE 102 mmol/L (98-107); GLUCOSE 108 mg/dL (75-110); POTASSIUM 4.4 mmol/L (3.6-5.0); SODIUM 145.1 mmol/L (137-145)
[2018-04-15 09:17] LABS: ABSOLUTE LYMPHOCYTES# (MANUAL) 0.5 10^3/uL (0.5-4.7); ABSOLUTE MONOCYTES # (MANUAL) 0.4 10^3/uL (0.1-1.4); ABSOLUTE NEUTROPHILS# (MANUAL) 7.3 10^3/uL (1.7-8.2); BAND NEUTROPHILS % (MANUAL) 1 % (3-5); BASOPHILS % (MANUAL) 2 % (0-2); EOSINOPHILS % (MANUAL) 0 % (0-6); HYPOCHROMASIA SLIGHT; LYMPHOCYTES % (MANUAL) 2 % (13-45); MONOCYTES % (MANUAL) 5 % (3-13); PLATELET COMMENT ADEQUATE; SEGMENTED NEUTROPHILS % (MAN) 86 % (42-78); TOTAL CELLS COUNTED 100; TOXIC GRANULATION SLIGHT
--- NOTE | 2018-04-15 09:34 | RADIOLOGY REPORT (SQ) ---
EXAM DESCRIPTION: CHEST SINGLE VIEW COMPLETED DATE/TIME: 04/15/2018 9:11 am REASON FOR STUDY: hypoxia COMPARISON: 12/27/2017 NUMBER OF VIEWS: One view. TECHNIQUE: Single frontal radiographic view of the chest acquired. LIMITATIONS: None. FINDINGS: LUNGS AND PLEURA: Stable bandlike scarring in the lingula and left lower lobe. . No pleur al effusion. Attenuated blood vessels and flattened shirley-diaphragms. MEDIASTINUM AND HILAR STRUCTURES: No masses. Contour normal. HEART AND VASCULAR STRUCTURES: Heart normal in size. Normal vasculature. BONES: Multiple old right posterior rib fractures. HARDWARE: CABG. OTHER: No other significant finding. IMPRESSION: COPD. NO ACUTE RADIOGRAPHIC FINDING IN THE CHEST. TECHNICAL DOCUMENTATION: JOB ID: [id number] [employer]- All Rights Reserved Reading location - IP/workstation name: [email or web address]
[2018-04-15] MEDS ORDERED: MAGNESIUM HYDROXIDE SUSP 30 ML UDCUP PO PRN (10:44)
[2018-04-15] MEDS ORDERED: ACETAMINOPHEN 325 MG TABLET PO PRN (10:44)
[2018-04-15] MEDS ORDERED: ONDANSETRON HCL INJ/PF 4 MG/2 ML SDV IV PRN (10:44)
[2018-04-15] MEDS ORDERED: DOCUSATE SODIUM 100 MG CAPSULE PO PRN (10:44)
[2018-04-15] MEDS ORDERED: ALBUTEROL SULFATE 0.083% NEB 2.5 MG/3 ML AMPUL NEB PRN (10:44)
[2018-04-15] MEDS ORDERED: MAG HYDROX/AL HYDROX/SIMETH SUSP 30 ML UDCUP PO PRN (10:44)
[2018-04-15] MEDS ORDERED: LORAZEPAM 0.5 MG TABLET PO PRN (10:50)
[2018-04-15] MEDS: IPRATROPIUM/ALBUTEROL 0.5-2.5 MG/3 ML AMPUL NEB SCH ×2 (13:54→19:25)
[2018-04-15] MEDS: HEPARIN SOD (PORCINE) 5,000 UNIT/ML 1 ML SYRINGE SUBCUT SCH ×2 (14:11→22:07)
[2018-04-15] MEDS: METHYLPREDNISOLONE INJ 40 MG/1 ML SDV IV SCH ×2 (14:13→22:02)
--- NOTE | 2018-04-15 14:54 | PDOC H&P ---
History of Present Illness Admission Date/PCP: 04/15/18 10:14 VIC VILLELA MD Patient complains of: Dyspnea, productive cough. History of Present Illness: CASSIDY QUIÑONES is a 57 year old male with a past medical history of COPD (oxygen dependent at night), hypertension, atrial fibrillation, and pericardectomy who presented to the emergency room today with complaint of shortness of breath and productive cough that have gradually worsened over the last 4 days. He states the symptoms began with rhinorrhea, congestion, and sore throat progressing into dyspnea and cough. He had left over Levaquin from the previous COPD exacerbation that he started on Sunday (abx not completed due to hospital admission). He reports that he used multiple nebulizer treatments and continuous oxygen therapy yesterday without relief of the symptoms. He denies headache, dizziness, fever, chest pain, palpitations, orthopnea, abdominal pain , nausea vomiting and diarrhea. He endorses chills, dyspnea at rest, productive cough. Evaluation in the emergency department revealed tachypnea with a respiratory rate of 34 and hypoxia on room air (88%), a normal WBC with elevated segs (86), mildly elevated sodium to 145.1, bicarbonate 31, BUN 22, and chest x-ray demonstrating COPD without acute cardiopulmonary findings. He is referred to the hospitalist service for observational admission and management of COPD exacerbation. Past Medical History Cardiac Medical History: Reports: Atrial Fibrillation, Congestive Heart Failure , Hypertension Denies: Myocardial Infarction Pulmonary Medical History: Reports: Chronic Obstructive Pulmonary Disease (COPD) Denies: Tuberculosis EENT Medical History: Reports: None Neurological Medical History: Denies: Hemorrhagic CVA, Ischemic CVA, Migraine Endocrine Medical History: Denies: Diabetes Mellitus Type 1, Diabetes Mellitus Type 2, Hyperthyroidism, Hypothyroidism Renal/ Medical History: Reports: None Malignancy Medical History: Reports: None GI Medical History: Reports: Gastroesophageal Reflux Disease Denies: Cirrhosis, Crohn's Disease, Hepatitis, Ulcerative Colitis Musculoskeltal Medical History: Denies: Arthritis, Fibromyalgia, Gout Skin Medical History: Denies: Eczema, Psoriasis Psychiatric Medical History: Reports: Personality Disorder, Tobacco Dependency Denies: Bipolar Disorder, Dementia, Depression, Post Traumatic Stress Disorder, Schizoaffective Disorder Traumatic Medical History: Reports: Pneumothorax Denies: Gunshot Wound Hematology: Denies: Anemia, Sickle Cell Disease, Bleeding Tendencies Infectious Medical History: Reports: None Past Surgical History Past Surgical History: Reports: Other - Pericardectomy, cataracts Social History Information Source: Patient Lives with: Spouse/Significant other Smoking Status: Current Every Day Smoker Cigarettes Packs Per Day: 0.2 Frequency of Alcohol Use: Social Amount of Alcoholic Beverages Per Day: Sixpack beer 3 times weekly Hx Recreational Drug Use: No Drugs: None Hx Prescription Drug Abuse: No - Advance Directive Resuscitation Status: Full Code Surrogate healthcare decision maker:: The patient's , Senia Quiñones, Family History Family History: CAD, DM, Hypertension Parental Family History Reviewed: Yes Children Family History Reviewed: Yes Sibling(s) Family History Reviewed.: Yes Medication/Allergy Home Medications: Aspirin [Aspirin EC] 81 mg PO DAILY 12/27/17 Fluticasone/Umeclidin/Vilanter [Trelegy Ellipta 100-62.5-25] 2 puff IH DAILY 07/06 Sotalol HCl [Sotalol AF] 120 mg PO Q12 12/27/17 Albuterol Sulfate [Proair Hfa Inhalation Aerosol 8.5 gm Mdi] 1 puff IH Q4HP PRN 04/15/18 Lisinopril [Prinivil 10 mg Tablet] 20 mg PO DAILY 04/15/18 Prednisone [Deltasone 10 mg Tablet] 10 mg PO DAILY 04/15/18 Allergies/Adverse Reactions: No Known Allergies Allergy (Verified 04/15/18 08:30) Review of Systems Constitutional: PRESENT: chills. ABSENT: fever(s), headache(s), weight gain, weight loss Eyes: ABSENT: visual disturbances Ears: ABSENT: hearing changes Nose, Mouth, and Throat: PRESENT: other - Rhinorrhea, congestion Cardiovascular: ABSENT: chest pain, dyspnea on exertion, edema, orthropnea, palpitations Respiratory: PRESENT: cough, dyspnea, sputum. ABSENT: hemoptysis Gastrointestinal: ABSENT: abdominal pain, constipation, diarrhea, hematemesis, hematochezia, nausea, vomiting Genitourinary: ABSENT: dysuria, hematuria Musculoskeletal: ABSENT: joint swelling Integumentary: ABSENT: rash, wounds Neurological: ABSENT: abnormal gait, abnormal speech, confusion, dizziness, focal weakness, syncope Psychiatric: ABSENT: anxiety, depression, homidical ideation, suicidal ideation Endocrine: ABSENT: cold intolerance, heat intolerance, polydipsia, polyuria Hematologic/Lymphatic: ABSENT: easy bleeding, easy bruising Physical Exam Vital Signs: Temp Pulse Resp BP Pulse Ox 97.7 F 82 18 147/86 H 94 04/15/18 13:49 04/15/18 13:55 04/15/18 13:55 04/15/18 13:49 04/15/18 13:55 Intake & Output 04/14/18 04/15/18 04/16/18 06:59 06:59 06:59 Weight 74 kg General appearance: PRESENT: no acute distress, thin, well-developed, well- nourished Head exam: PRESENT: atraumatic, normocephalic Eye exam: PRESENT: conjunctiva pink, EOMI, PERRLA. ABSENT: scleral icterus Ear exam: PRESENT: normal external ear exam Mouth exam: PRESENT: moist, tongue midline Neck exam: ABSENT: carotid bruit, JVD, lymphadenopathy, thyromegaly Respiratory exam: PRESENT: prolonged expiratory phas, rhonchi, symmetrical, wheezes, other - Supplemental oxygen at 2 L/min. ABSENT: rales Cardiovascular exam: PRESENT: RRR. ABSENT: diastolic murmur, rubs, systolic murmur Pulses: PRESENT: normal dorsalis pedis pul Vascular exam: PRESENT: normal capillary refill GI/Abdominal exam: PRESENT: normal bowel sounds, soft. ABSENT: distended, guarding, mass, organolmegaly, rebound, tenderness Rectal exam: PRESENT: deferred Extremities exam: PRESENT: full ROM. ABSENT: calf tenderness, clubbing, pedal edema Neurological exam: PRESENT: alert, awake, oriented to person, oriented to place , oriented to time, oriented to situation, CN II-XII grossly intact. ABSENT: motor sensory deficit Psychiatric exam: PRESENT: appropriate affect, normal mood. ABSENT: homicidal ideation, suicidal ideation Skin exam: PRESENT: dry, intact, warm. ABSENT: cyanosis, rash Results Impressions: Chest X-Ray 04/15/18 08:29 IMPRESSION: COPD. NO ACUTE RADIOGRAPHIC FINDING IN THE CHEST. Assessment & Plan - Diagnosis (1) COPD exacerbation Is this a current diagnosis for this admission?: Yes Plan: The patient presents with 4 days of dyspnea, increased oxygen and nebulizer treatment demands, cough, and sputum production. WBCs normal. Chest x-ray demonstrates COPD without acute cardiopulmonary findings. Sputum culture pending (pt self-initiated Levaquin x 3 days prior to admission). The patient is admitted to the medical floor on continuous cardiac telemetry. He is provided supplemental oxygen as needed to maintain oxygen saturations greater than 88% BiPAP as needed. Scheduled and as needed nebulizer treatments. Levaquin p.o.; Day #3 (including doses patient took at home prior to admission) IV Solu-Medrol; of note, patient is chronically on prednisone 10 mg daily for COPD management. Mucinex and Singulair. Flutter valve. (2) History of atrial fibrillation Is this a current diagnosis for this admission?: Yes Plan: Currently in NSR. Monitor with continuous cardiac telemetry. Continue daily aspirin; pt reports he does not take anticoagulant medication. Continue home dose Sotalol. (3) Hypertension Is this a current diagnosis for this admission?: Yes Plan: Continue home dose lisinopril. (4) Tobacco abuse Is this a current diagnosis for this admission?: Yes Plan: Smoking cessation encouraged; patient declines nicotine replacement therapy. - Time Time Spent: 50 to 70 Minutes Medications reviewed and adjusted accordingly: Yes Anticipated discharge: Home
--- NOTE | 2018-04-15 16:34 | EKG REPORT ---
SEVERITY:- ABNORMAL ECG - SINUS RHYTHM LOW VOLTAGE IN FRONTAL LEADS NONSPECIFIC T ABNORMALITIES, ANTERIOR LEADS : Confirmed by: Nadya De Leon 15-Apr-2018 16:33:59
[2018-04-15] MEDS ORDERED: SOTALOL HCL 120 MG PO SCH (22:00)
[2018-04-15] MEDS ORDERED: MONTELUKAST SODIUM 10 MG TABLET PO SCH (22:00)
[2018-04-15] MEDS: FAMOTIDINE 20 MG TABLET PO SCH (22:02)
[2018-04-15] MEDS: GUAIFENESIN 600 MG TABLET.SA PO SCH (22:06)
[2018-04-15] MEDS ORDERED: METOPROLOL TARTRATE PF/INJ 5 MG/5 ML SDV IV ONE ×3 (22:23→22:45)
[2018-04-15] MEDS ORDERED: SOTALOL HCL 80 MG TABLET PO ONE (22:45)
[2018-04-16] MEDS: IPRATROPIUM/ALBUTEROL 0.5-2.5 MG/3 ML AMPUL NEB SCH ×3 (02:21→13:55)
[2018-04-16 05:11] LABS: HEMATOCRIT 46.9 % (37.9-51.0); HEMOGLOBIN 15.7 g/dL (13.5-17.0); MEAN CORPUSCULAR HEMOGLOBIN 30.8 pg (27.0-33.4); MEAN CORPUSCULAR HGB CONC 33.6 g/dL (32.0-36.0); MEAN CORPUSCULAR VOLUME 92 fl (80-97); PLATELET COUNT 165 10^3/uL (150-450); RED BLOOD COUNT 5.11 10^6/uL (4.35-5.55); RED CELL DISTRIBUTION WIDTH 14.5 % (11.5-14.0); WHITE BLOOD COUNT 7.3 10^3/uL (4.0-10.5)
[2018-04-16 05:37] LABS: ANION GAP 9 (5-19); BLOOD UREA NITROGEN 23 mg/dL (7-20); CALCIUM 9.5 mg/dL (8.4-10.2); CARBON DIOXIDE 32 mmol/L (22-30); CHLORIDE 102 mmol/L (98-107); GLUCOSE 144 mg/dL (75-110); POTASSIUM 4.7 mmol/L (3.6-5.0)
[2018-04-16] MEDS: METHYLPREDNISOLONE INJ 40 MG/1 ML SDV IV SCH ×2 (06:42→13:52)
[2018-04-16] MEDS: HEPARIN SOD (PORCINE) 5,000 UNIT/ML 1 ML SYRINGE SUBCUT SCH ×2 (06:42→13:52)
--- NOTE | 2018-04-16 09:20 | Physician Advisory Note ---
Physician Advisor ProgressNote .: [facility] I have reviewed the medical record for this patient. Physician Advisor Statement: Please consider documenting, if you agree: 1. "Acute hypernatremia, suspect due to " [dehydration from increased difficulty breathing producing poor po intake?] 2. "Chronic systolic CHF w/EF 45-50%" 3. "Paroxysmal Afib"? (If he truly had Afib once in past - such as due to severe PNA, resolved, not needing any more tx, then "h/o Afib" is correct terminology, but then what is he on Sotalol for?) 4. "tobacco abuse & dependence" 5. Medical necessity: reasons pt cannot safely go home today (not yet hemodynamically stable, breathing not back to baseline, ...) Status: 57yo with prednisone-dependent COPD, already requiring 2L O2 at night at baseline, with ongoing tobacco abuse/dependence, chronic systolic CHF, & ___ _ type Afib - on Sotalol to keep HR down, came in "critically ill-appearing", with increasing cough/sputum & worsening O2 sat at home despite aggressive outpt tx with continuous O2, multiple nebs without relief, and 3 days of Levaquin. (Failed outpt tx.) Came in w/persistent tachypnea into the 30s, hypoxemia, SOB at rest, rhonchi, wheezes, prolonged expiration, HR 80s-90s, acute hypernatremia, elevated BUN. Nursing notes state he was using accessory muscles to breathe initially, and still wheezing w/pursed lip breathing after initial tx in ED. Overnight, he was given NOW doses of IV metoprolol & Sotalol. High risk for further decompensation. Appropriate for Inpatient status. Thanks! CK
[2018-04-16] MEDS ORDERED: ASPIRIN 81 MG TABLET, ENT COATED PO SCH (10:00)
[2018-04-16] MEDS ORDERED: SOTALOL HCL 80 MG TABLET PO SCH (10:00)
[2018-04-16] MEDS ORDERED: LISINOPRIL 10 MG TABLET PO SCH (10:00)
[2018-04-16] MEDS ORDERED: LEVOFLOXACIN 750 MG TABLET PO SCH (10:00)
[2018-04-16] MEDS: GUAIFENESIN 600 MG TABLET.SA PO SCH (10:04)
[2018-04-16] MEDS: FAMOTIDINE 20 MG TABLET PO SCH (10:04)
[2018-04-16 11:41] VITALS: BP 127/81
[2018-04-16] MEDS ORDERED: PREDNISONE 20 MG TABLET PO ONE (12:32)
--- NOTE | 2018-04-16 13:40 | PDOC CONSULTATION ---
Consultation Consult Date: 04/16/18 Attending physician:: ABEL ARMENTA Consult reason:: Dyspnea/cough History of Present Illness Admission Date/PCP: 04/15/18 10:14 VIC VILLELA MD History of Present Illness: CASSIDY ART is a 57 year old male,well-known to [facility] as he is recently been discharged the hospital with exacerbation of COPD he returned complaining of shortness of breath and a cough he was found to be hypoxic and was subsequently admitted no leukocytosis no fever no left shift was noted he denies any hemoptysis PPD was negative has no history of chronic lung disease as a child or adolescent missed exposure large amounts of passive smoke as a child as well as an adult. He denies angina-like chest pain sleeps on 2 pillows no PND occasional nocturnal cough no edema. Past Medical History Cardiac Medical History: Reports: Atrial Fibrillation, Congestive Heart Failure , Hypertension Denies: Myocardial Infarction Pulmonary Medical History: Reports: Chronic Obstructive Pulmonary Disease (COPD) Denies: Tuberculosis EENT Medical History: Reports: None Neurological Medical History: Denies: Hemorrhagic CVA, Ischemic CVA, Migraine Endocrine Medical History: Denies: Diabetes Mellitus Type 1, Diabetes Mellitus Type 2, Hyperthyroidism, Hypothyroidism Renal/ Medical History: Reports: None Malignancy Medical History: Reports: None GI Medical History: Reports: Gastroesophageal Reflux Disease Denies: Cirrhosis, Crohn's Disease, Hepatitis, Ulcerative Colitis Musculoskeltal Medical History: Denies: Arthritis, Fibromyalgia, Gout Skin Medical History: Denies: Eczema, Psoriasis Psychiatric Medical History: Reports: Personality Disorder, Tobacco Dependency Denies: Bipolar Disorder, Dementia, Depression, Post Traumatic Stress Disorder, Schizoaffective Disorder Traumatic Medical History: Reports: Pneumothorax Denies: Gunshot Wound Hematology: Denies: Anemia, Sickle Cell Disease, Bleeding Tendencies Infectious Medical History: Reports: None Past Surgical History Past Surgical History: Reports: Coronary Artery Bypass Graft, Other - Pericardectomy, cataracts Social History Lives with: Spouse/Significant other Smoking Status: Current Every Day Smoker Cigarettes Packs Per Day: 0.2 Cigars Per Day: 0 Pipes Per Day: 0 Number of Years Smokin Last Time Smoked: 04/15/2018 Frequency of Alcohol Use: Social Hx Recreational Drug Use: No Drugs: None Hx Prescription Drug Abuse: No - Advance Directive Resuscitation Status: Full Code Family History Family History: CAD, DM, Hypertension Medication/Allergy Home Medications: Aspirin [Aspirin EC] 81 mg PO DAILY 12/27/17 Fluticasone/Umeclidin/Vilanter [Trelegy Ellipta 100-62.5-25] 2 puff IH DAILY 07/06 Sotalol HCl [Sotalol AF] 120 mg PO Q12 12/27/17 Albuterol Sulfate [Proair HFA Inhalation Aerosol 8.5 gm MDI] 1 puff IH Q4HP PRN 04/15/18 Lisinopril [Prinivil 10 mg Tablet] 20 mg PO DAILY 04/15/18 Prednisone [Deltasone 10 mg Tablet] 10 mg PO DAILY 04/15/18 Guaifenesin [Mucinex Sr 600 mg Tablet.sa] 600 mg PO Q12 #14 tablet.sa 04/16/18 Ipratropium/Albuterol Sulfate [Duoneb 3 ml Ampul] 3 ml NEB Q4HP PRN #10 vial.neb 04/16/18 Levofloxacin [Levaquin 750 mg Tablet] 750 mg PO DAILY #5 tablet 04/16/18 Lorazepam [Ativan 0.5 mg Tablet] 0.5 mg PO Q6HP PRN tablet 04/16/18 Montelukast Sodium [Singulair 10 mg Tablet] 10 mg PO QHS #30 tablet 04/16/18 Prednisone 20 mg PO DAILY #13 tablet 04/16/18 Allergies/Adverse Reactions: No Known Allergies Allergy (Verified 04/15/18 08:30) Physical Exam Vital Signs: Temp Pulse Resp BP Pulse Ox 97.6 F 89 20 127/81 H 97 04/16/18 11:14 04/16/18 12:23 04/16/18 11:15 04/16/18 11:14 04/16/18 11:14 Intake & Output 04/15/18 04/16/18 04/17/18 06:59 06:59 06:59 Intake Total 1318 Balance 1318 Weight 74.3 kg General appearance: PRESENT: no acute distress, cooperative, disheveled, thin Head exam: PRESENT: atraumatic, normocephalic Eye exam: PRESENT: conjunctiva pale, EOMI, PERRLA. ABSENT: nystagmus, periorbital swelling, scleral icterus Mouth exam: PRESENT: dry mucosa, neck supple, tongue midline Neck exam: ABSENT: carotid bruit, JVD, lymphadenopathy, thyromegaly, tracheal deviation, tracheostomy Respiratory exam: PRESENT: decreased breath sounds, prolonged expiratory phas, rhonchi, unlabored, wheezes. ABSENT: rales, retraction, stridor, tachypnea Cardiovascular exam: PRESENT: RRR, +S1, +S2 Pulses: PRESENT: normal radial pulses GI/Abdominal exam: PRESENT: normal bowel sounds, soft Extremities exam: PRESENT: full ROM. ABSENT: calf tenderness, clubbing, joint swelling Musculoskeletal exam: PRESENT: full ROM. ABSENT: deformity, dislocation Neurological exam: PRESENT: alert, awake Psychiatric exam: PRESENT: normal mood Skin exam: PRESENT: dry, warm Results Laboratory Results: 04/16/18 04:49 04/16/18 04:49 04/16/18 04/16/18 04:49 04:49 WBC 7.3 RBC 5.11 Hgb 15.7 Hct 46.9 MCV 92 MCH 30.8 MCHC 33.6 RDW 14.5 H Plt Count 165 Sodium 143.0 Potassium 4.7 Chloride 102 Carbon Dioxide 32 H Anion Gap 9 BUN 23 H Creatinine 0.62 Est GFR ( Amer) > 60 Est GFR (Non-Af Amer) > 60 Glucose 144 H Calcium 9.5 Magnesium 2.0 Impressions: Chest X-Ray 04/15/18 08:29 IMPRESSION: COPD. NO ACUTE RADIOGRAPHIC FINDING IN THE CHEST. Assessment & Plan - Diagnosis (1) COPD exacerbation Is this a current diagnosis for this admission?: Yes Plan: Continue current bronchodilator therapy (2) History of atrial fibrillation Is this a current diagnosis for this admission?: Yes Plan: Stable at this time (3) Hypoxia Is this a current diagnosis for this admission?: Yes (4) Tobacco abuse Is this a current diagnosis for this admission?: Yes Plan: Stop smoking discussed at length risk and dangers associated with continued tobacco use
--- NOTE | 2018-04-18 07:53 | PDOC DISCHARGE SUMMARY ---
General - Admit/Disc Date/PCP Admission Date/Primary Care Provider: 04/15/18 10:14 VIC VILLELA MD Discharge Date: 04/16/18 - Discharge Diagnosis (1) COPD exacerbation Is this a current diagnosis for this admission?: Yes (2) History of atrial fibrillation Is this a current diagnosis for this admission?: Yes (3) Hypertension Is this a current diagnosis for this admission?: Yes (4) Tobacco abuse Is this a current diagnosis for this admission?: Yes - Additional Information Resuscitation Status: Full Code Discharge Diet: As Tolerated Discharge Activity: Activity As Tolerated Prescriptions: Guaifenesin [Mucinex Sr 600 mg Tablet.sa] 600 mg PO Q12 #14 tablet.sa Ipratropium/Albuterol Sulfate [Duoneb 3 ml Ampul] 3 ml NEB Q4HP PRN #10 vial.neb PRN Reason: Levofloxacin [Levaquin 750 mg Tablet] 750 mg PO DAILY #5 tablet Lorazepam [Ativan 0.5 mg Tablet] 0.5 mg PO Q6HP PRN #20 tab PRN Reason: Montelukast Sodium [Singulair 10 mg Tablet] 10 mg PO QHS #30 tablet Prednisone 20 mg PO DAILY #13 tablet Home Medications: Aspirin [Aspirin EC] 81 mg PO DAILY 12/27/17 Fluticasone/Umeclidin/Vilanter [Trelegy Ellipta 100-62.5-25] 2 puff IH DAILY 07/06 Sotalol HCl [Sotalol AF] 120 mg PO Q12 12/27/17 Albuterol Sulfate [Proair HFA Inhalation Aerosol 8.5 gm MDI] 1 puff IH Q4HP PRN 04/15/18 Lisinopril [Prinivil 10 mg Tablet] 20 mg PO DAILY 04/15/18 Prednisone [Deltasone 10 mg Tablet] 10 mg PO DAILY 04/15/18 Guaifenesin [Mucinex Sr 600 mg Tablet.sa] 600 mg PO Q12 #14 tablet.sa 04/16/18 Ipratropium/Albuterol Sulfate [Duoneb 3 ml Ampul] 3 ml NEB Q4HP PRN #10 vial.neb 04/16/18 Levofloxacin [Levaquin 750 mg Tablet] 750 mg PO DAILY #5 tablet 04/16/18 Lorazepam [Ativan 0.5 mg Tablet] 0.5 mg PO Q6HP PRN tablet 04/16/18 Lorazepam [Ativan 0.5 mg Tablet] 0.5 mg PO Q6HP PRN #20 tab 04/16/18 Montelukast Sodium [Singulair 10 mg Tablet] 10 mg PO QHS #30 tablet 04/16/18 Prednisone 20 mg PO DAILY #13 tablet 04/16/18 History of Present Illness History of Present Illness: CASSIDY ART is a 57 year old male with a past medical history of COPD (oxygen dependent at night), hypertension, atrial fibrillation, and pericardectomy who presented to the emergency room today with complaint of shortness of breath and productive cough that have gradually worsened over the last 4 days. He states the symptoms began with rhinorrhea, congestion, and sore throat progressing into dyspnea and cough. He had left over Levaquin from the previous COPD exacerbation that he started on Sunday (abx not completed due to hospital admission). He reports that he used multiple nebulizer treatments and continuous oxygen therapy yesterday without relief of the symptoms. He denies headache, dizziness, fever, chest pain, palpitations, orthopnea, abdominal pain , nausea vomiting and diarrhea. He endorses chills, dyspnea at rest, productive cough. Evaluation in the emergency department revealed tachypnea with a respiratory rate of 34 and hypoxia on room air (88%), a normal WBC with elevated segs (86), mildly elevated sodium to 145.1, bicarbonate 31, BUN 22, and chest x-ray demonstrating COPD without acute cardiopulmonary findings. He is referred to the hospitalist service for observational admission and management of COPD exacerbation. Hospital Course Hospital Course: The patient presents with 4 days of dyspnea, increased oxygen and nebulizer treatment demands, cough, and sputum production. He has a history of COPD and wears oxygen at home, primarily at night but will occasionally wears oxygen during the day when he is feeling SOB. Self-initiated Levaquin x 3 days prior to admission. Chest x-ray demonstrates COPD without acute cardiopulmonary findings. No evidence of leukocytosis. The patient was admitted to the medical floor on continuous cardiac telemetry. He was provided supplemental oxygen as needed to maintain oxygen saturations greater than 88%. He did not require BIPAP. The patient was treated with scheduled and PRN nebulizer treatments, IV steroids, mucinex, singulair, and continued on Levaquin for empiric coverage of acute bronchitis in a COPD patient. The patient was seen by Dr. Merritt of Pulmonary, he did not have any further recommendations. 24hrs following admission, the patient reported feeling much better. The patient was able to ambulate without becoming tachypnic, but he did drop his SPO2 to 83%. He did not appear to be in any kind of respiratory distress. He remained afebrile and non-toxic appearing. The patient was discharged home with prescriptions for singulair, mucinex, Duoneb treatments (patient has at home nebulizer), 5 day prednisone taper, and levaquin to complete a 1 week course of antibiotics. Additionally, the patient takes PRN ativan for anxiety and he was sent home with a prescription for a 1 week supply of ativan. The patient was advised to wear his home O2 during the day and night while he was at home on antibiotic therapy. A great deal of time was spent on smoking cessation counseling, both by me and Dr. Merritt. The patient was scheduled for a follow up appointment with Dr. Merritt. Discharge instructions were given to this patient and his . They both state understanding. Physical Exam Vital Signs: Temp Pulse Resp BP Pulse Ox 97.6 F 76 18 127/81 H 97 04/16/18 13:30 04/16/18 13:56 04/16/18 13:56 04/16/18 13:30 04/16/18 13:56 Intake & Output 04/16/18 04/17/18 04/18/18 06:59 06:59 06:59 Intake Total 1318 Balance 1318 Weight 74.3 kg Results Laboratory Results: 04/16/18 04:49 04/16/18 04:49 04/15/18 13:06 Sputum Gram Stain - Final 04/15/18 13:06 Sputum Sputum Culture - Final NORMAL TERRIE Impressions: Chest X-Ray 04/15/18 08:29 IMPRESSION: COPD. NO ACUTE RADIOGRAPHIC FINDING IN THE CHEST. Status: Imported from PACS Qualifiers - * PATIENT BEING DISCHARGED WITH ANY OF THE FOLLOWING DIAGNOSIS: No Plan Time Spent: Less than 30 Minutes
== END 2018-04-16 14:45 | disposition home or self-care (01) ==
LOC: ER 08:13 → INTOOBSV 10:14 → EH 10:14 → 4N 13:47
PROVIDERS: ADMIT Internal Medicine; ATTEND Internal Medicine
DX: J44.1 Chronic obstructive pulmonary disease with (acute) exacerbation (principal); I48.91 Unspecified atrial fibrillation; I10 Essential (primary) hypertension; R68.83 Chills (without fever); J34.89 Other specified disorders of nose and nasal sinuses; J02.9 Acute pharyngitis, unspecified; R09.02 Hypoxemia; F17.210 Nicotine dependence, cigarettes, uncomplicated; Z79.899 Other long term (current) drug therapy; Z79.82 Long term (current) use of aspirin; Z99.81 Dependence on supplemental oxygen; Z98.890 Other specified postprocedural states; Z82.49 Family history of ischemic heart disease and other diseases of the circulatory system; Z87.828 Personal history of other (healed) physical injury and trauma
CPT/HCPCS: 93005; 94640 ×3; 99291; 96375; 96365; 36415 ×2; 87070; 87205; 83735; 85025; 85027; 80048 ×2; 84484; 71045; 93010; 94761; G0378 ×2; G0379; J1644 ×2; J3490 ×5; J2920 ×2; J2930; J3475; J7512; J7620 ×2

== ENCOUNTER → 2018-06-20 | Outpatient (CLI) | payer BC ==
--- NOTE | 2018-06-20 13:15 | RADIOLOGY REPORT (SQ) ---
EXAM DESCRIPTION: CHEST PA/LATERAL COMPLETED DATE/TIME: 06/20/2018 1:05 pm REASON FOR STUDY: COUGH COMPARISON: Chest films 01/11/2014, 10/05/2017, 04/15/2018 CT chest 01/29/2014, 12/27/2017 EXAM PARAMETERS: NUMBER OF VIEWS: two views TECHNIQUE: Digital Frontal and Lateral radiographic views of the chest acquired. RADIATION DOSE: NA LIMITATIONS: none FINDINGS: LUNGS AND PLEURA: No acute infiltrates. No pleural effusion or pneumothorax. Chronic pleural thickening along the lateral left chest. Chronic pleural calcification along the pos terior left lower chest. MEDIASTINUM AND HILAR STRUCTURES: No masses or contour abnormalities. HEART AND VASCULAR STRUCTURES: Old sternotomy for CABG. Diffuse pericardial calcification. BONES: Multiple old healed right rib fractures. No thoracic compression deformity HARDWARE: None in the chest. OTHER: No other significant finding. IMPRESSION: No acute findings. TECHNICAL DOCUMENTATION: JOB ID: [id number] [employer]- All Rights Reserved Reading location - IP/workstation name: [email or web address]
== END ==
LOC: OD 12:56
PROVIDERS: ATTEND Physician Assistant
DX: J44.9 Chronic obstructive pulmonary disease, unspecified (principal); R05 Cough
CPT/HCPCS: 71046

== ENCOUNTER 2019-01-12 08:13 | Inpatient (IN) | payer BC ==
[2019-01-12] MEDS ORDERED: IPRATROPIUM/ALBUTEROL 0.5-2.5 MG/3 ML AMPUL NEB ONE (08:20)
[2019-01-12 08:31] LABS: ABSOLUTE EOSINOPHILS # (AUTO) 0.1 10^3/uL (0.0-0.6); ABSOLUTE LYMPHOCYTES (AUTO) 2.1 10^3/uL (0.5-4.7); BASOPHILS % (AUTO) 0.2 % (0-2); EOSINOPHILS % (AUTO) 0.9 % (0-6); HEMATOCRIT 48.7 % (37.9-51.0); HEMOGLOBIN 16.4 g/dL (13.5-17.0); LYMPHOCYTES % (AUTO) 20.3 % (13-45); MEAN CORPUSCULAR HEMOGLOBIN 31.6 pg (27.0-33.4); MEAN CORPUSCULAR HGB CONC 33.6 g/dL (32.0-36.0); MEAN CORPUSCULAR VOLUME 94 fl (80-97); MONOCYTES % (AUTO) 9.8 % (3-13); PLATELET COUNT 314 10^3/uL (150-450); RED BLOOD COUNT 5.19 10^6/uL (4.35-5.55); RED CELL DISTRIBUTION WIDTH 14.3 % (11.5-14.0); SEGMENTED NEUTROPHILS % (AUTO) 68.8 % (42-78); TOTAL CELLS COUNTED % (AUTO) 100 %; WHITE BLOOD COUNT 10.1 10^3/uL (4.0-10.5)
[2019-01-12] MEDS ORDERED: LORAZEPAM INJ 2 MG/1 ML VIAL IV ONE (08:37)
--- NOTE | 2019-01-12 08:49 | RADIOLOGY REPORT (SQ) ---
EXAM DESCRIPTION: CHEST SINGLE VIEW COMPLETED DATE/TIME: 01/12/2019 8:41 am REASON FOR STUDY: dyspnea COMPARISON: 12/27/2017 NUMBER OF VIEWS: One view. TECHNIQUE: Single frontal radiographic view of the chest acquired. LIMITATIONS: None. FINDINGS: LUNGS AND PLEURA: No opacities, masses or pneumothorax. No pleural effusion. Attenuated bl ood vessels and flattened shirley-diaphragms. MEDIASTINUM AND HILAR STRUCTURES: No masses. Contour normal. HEART AND VASCULAR STRUCTURES: Heart normal in size. Normal vasculature. BONES: No acute findings. HARDWARE: CABG. OTHER: No other significant finding. IMPRESSION: COPD. NO ACUTE RADIOGRAPHIC FINDING IN THE CHEST. TECHNICAL DOCUMENTATION: JOB ID: [id number] [employer]- All Rights Reserved Reading location - IP/workstation name: [email or web address]
--- NOTE | 2019-01-12 08:51 | ER Document Report ---
ED General - General Chief Complaint: Respiratory Distress Stated Complaint: RESPIRATORY DISTRESS Time Seen by Provider: 01/12/19 08:18 TRAVEL OUTSIDE OF THE [place] IN LAST 30 DAYS: No - HPI Notes: Patient presents emergency department for evaluation of respiratory distress. He has been ill with a cough and shortness of breath for the last week. He does have a history of COPD. He is never had to wear BiPAP or be intubated for this. He states he saw his doctor earlier this week, was given a "shot of antibiotics and a shot of steroids." He denies any fevers. No nausea or vomiting. Denies any pain. He called EMS and, per report, there was significant improvement with DuoNeb. He was further medicated with Solu-Medrol and magnesium. He does state he feels extremely anxious. He only gets this when he is feeling short of breath. He is short of breath enough last night to take some Ativan. - Related Data Allergies/Adverse Reactions: No Known Allergies Allergy (Verified 04/15/18 08:30) Past Medical History - General Information source: Patient, Relative - Spouse, Emergency Med Personnel - Social History Smoking Status: Current Every Day Smoker Family History: CAD, DM, Hypertension - Past Medical History Cardiac Medical History: Reports: Hx Atrial Fibrillation, Hx Congestive Heart Failure, Hx Hypertension Denies: Hx Heart Attack Pulmonary Medical History: Reports: Hx COPD Denies: Hx Tuberculosis Neurological Medical History: Denies: Hx Migraine Endocrine Medical History: Denies: Hx Diabetes Mellitus Type 1, Hx Diabetes Mellitus Type 2, Hx Hyperthyroidism, Hx Hypothyroidism Renal/ Medical History: Denies: Hx Peritoneal Dialysis GI Medical History: Reports: Hx Gastroesophageal Reflux Disease. Denies: Hx Cirrhosis, Hx Crohn's Disease, Hx Hepatitis, Hx Ulcerative Colitis Musculoskeletal Medical History: Denies Hx Arthritis, Denies Hx Fibromyalgia, Denies Hx Gout Skin Medical History: Denies Hx Eczema, Denies Hx Psoriasis Psychiatric Medical History: Reports: Hx Personality Disorder Denies: Hx Bipolar Disorder, Hx Dementia, Hx Depression, Hx Post Traumatic Stress Disorder, Hx Schizoaffective Disorder Traumatic Medical History: Reports: Hx Pneumothorax. Denies: Hx Gunshot Wound Infectious Medical History: Denies: Hx Hepatitis Past Surgical History: Reports: Hx Cardiac Surgery - sac around heart removed, Hx Coronary Artery Bypass Graft, Other - Pericardectomy, cataracts - Immunizations Hx Diphtheria, Pertussis, Tetanus Vaccination: No Hx Pneumococcal Vaccination: 11/19/17 Review of Systems - Review of Systems Constitutional: Malaise EENT: No symptoms reported Cardiovascular: No symptoms reported Respiratory: Cough, Short of breath, Wheezing Male Genitourinary: No symptoms reported Musculoskeletal: No symptoms reported Skin: No symptoms reported Neurological/Psychological: Anxiety Physical Exam - Vital signs Vitals: Resp BP Pulse Ox 36 H 149/108 H 98 01/12/19 08:19 01/12/19 08:19 01/12/19 08:19 Interpretation: Hypertensive, Tachycardic, Tachypneic - Notes Notes: Patient is a 58-year-old gentleman in a moderate amount of distress. Head is normocephalic and atraumatic. Pupils are equal, round, reactive to light. Oral mucosa is moist. Heart is tachycardic with normal S1, S2. Increased respiratory rate with increased work of breathing, supraclavicular retractions, paradoxical abdominal breathing. Extensive expiratory wheezes with prolonged expiratory phase noted. Abdomen soft, nontender, normoactive bowel sounds. Extremities without cyanosis, clubbing, edema. Peripheral pulses are equal, skin is moist, warm. Course - Re-evaluation Re-evalutation: 01/12/19 08:50 Patient presents the emergency department for evaluation and respiratory distress. Breathing treatment further ordered, as well as BiPAP. He had already received Solu-Medrol and magnesium in route. Patient asked specifically for something for anxiety. He states that this helped him in the past. He states he feels more anxious with the BiPAP mask in place. I did ask him to tolerate this for as long as possible. He was given Ativan 0.5 mg IV, will continue to monitor. 01/12/19 11:13 Patient significantly improved on BiPAP and after small dose of Ativan. Laboratory evaluations are largely unremarkable. Chest x-ray unremarkable as well. He did receive Solu-Medrol in route. Was already on antibiotics as an outpatient. We will continue BiPAP for hypercapnia, will admit for further care. - Vital Signs Vital signs: Temp Pulse Resp BP Pulse Ox 97.8 F 128 H 22 H 101/81 99 01/12/19 10:33 01/12/19 08:20 01/12/19 11:08 01/12/19 11:00 01/12/19 11:08 - Laboratory Result Diagrams: 01/12/19 08:00 01/12/19 08:00 Laboratory results interpreted by me: 01/12/19 01/12/19 01/12/19 08:00 08:00 09:14 RDW 14.3 H Carbonic Acid 1.80 H ABG pH 7.29 L ABG pCO2 59.7 H ABG pO2 115.7 H ABG HCO3 27.9 H ABG Total CO2 29.7 H Potassium 5.2 H Carbon Dioxide 31 H BUN 24 H Glucose 165 H Discharge - Discharge Clinical Impression: Acute respiratory failure with hypoxia and hypercarbia, COPD exacerbation Condition: Stable Disposition: ADMITTED INPATIENT Admitting Provider: [facility] Unit Admitted: ELMO
--- NOTE | 2019-01-12 08:54 | EKG REPORT ---
SEVERITY:- ABNORMAL ECG - SINUS TACHYCARDIA NONSPECIFIC T ABNORMALITIES, LATERAL LEADS : Confirmed by: Linus Pagan MD 12-Jan-2019 08:54:19
[2019-01-12 09:00] LABS: ALANINE AMINOTRANSFERASE 40 U/L (21-72); ALBUMIN 4.6 g/dL (3.5-5.0); ALKALINE PHOSPHATASE 71 U/L (38-126); ANION GAP 11 (5-19); ASPARTATE AMINO TRANSFERASE 41 U/L (17-59); BILIRUBIN,DIRECT 0.4 mg/dL (0.0-0.4); BILIRUBIN,TOTAL 0.7 mg/dL (0.2-1.3); BLOOD UREA NITROGEN 24 mg/dL (7-20); CALCIUM 9.7 mg/dL (8.4-10.2); CARBON DIOXIDE 31 mmol/L (22-30); CHLORIDE 101 mmol/L (98-107); CREATINE KINASE 105 U/L (55-170); GLUCOSE 165 mg/dL (75-110); POTASSIUM 5.2 mmol/L (3.6-5.0); SODIUM 143.1 mmol/L (137-145)
[2019-01-12 09:11] LABS: CREATINE KINASE MB 1.26 ng/mL (<4.55); NT PRO BNP 310 pg/mL (5-900)
[2019-01-12 09:12] LABS: TROPONIN I < 0.012 ng/mL
[2019-01-12 09:29] LABS: ARTERIAL BLOOD BASE EXCESS -0.3 mmol/L; ARTERIAL BLOOD HCO3 27.9 mmol/L (20-24); ARTERIAL BLOOD O2 SATURATION 97.7 % (94-98); ARTERIAL BLOOD PCO2 59.7 mmHg (35-45); ARTERIAL BLOOD PH 7.29 (7.35-7.45); ARTERIAL BLOOD PO2 115.7 mmHg (80-100); ARTERIAL BLOOD TOTAL CO2 29.7 mmol/L (23-27)
[2019-01-12 09:30] LABS: ARTERIAL BLOOD FIO2 40%
[2019-01-12] MEDS ORDERED: ACETAMINOPHEN 325 MG TABLET PO PRN (12:27)
[2019-01-12] MEDS ORDERED: IPRATROPIUM/ALBUTEROL 0.5-2.5 MG/3 ML AMPUL NEB PRN (12:27)
[2019-01-12] MEDS ORDERED: ONDANSETRON HCL INJ/PF 4 MG/2 ML SDV IV PRN (12:27)
[2019-01-12] MEDS ORDERED: ONDANSETRON 4 MG TAB.RAPDIS PO PRN (12:27)
--- NOTE | 2019-01-12 12:47 | PDOC PROGRESS REPORT ---
Subjective Progress Note for:: 01/12/19 Subjective:: 58-year-old male with history of COPD secondary to chronic smoking, hypertension, atrial fibrillation not on anticoagulation, previous history of cardiac surgery for calcified pericardium 2017 in [place] as per the family members came to the emergency room with complaints of 2 weeks history of shortness of breath and wheezing. The shortness of breath and wheezing associated with allergy symptoms like runny nose sinus headaches, he is also complained about cough coughing up yellow sputum. Denies any chest pains but complains of chest tightness, no fever no nausea no vomiting diarrhea or constipation is reported. Denies any rashes. In the emergency room workup was done he was placed on BiPAP medical consult was called for further management. Reason For Visit: ACUTE RESPIRATORY FAILURE WITH HYPOXIA AND Physical Exam Vital Signs: Temp Pulse Resp BP Pulse Ox 97.8 F 128 H 18 100/81 100 01/12/19 10:33 01/12/19 08:20 01/12/19 12:00 01/12/19 12:00 01/12/19 12:00 Intake & Output 01/11/19 01/12/19 01/13/19 06:59 06:59 06:59 Weight 76.8 kg General appearance: PRESENT: mild distress Head exam: PRESENT: atraumatic Eye exam: PRESENT: PERRLA Mouth exam: PRESENT: moist, tongue midline Neck exam: ABSENT: carotid bruit, JVD, lymphadenopathy, thyromegaly Respiratory exam: PRESENT: decreased breath sounds, wheezes Cardiovascular exam: PRESENT: tachycardia, other - Previous surgical scar over the sternum. Extremities exam: PRESENT: full ROM. ABSENT: calf tenderness, clubbing, pedal edema Neurological exam: PRESENT: alert, awake, oriented to person, oriented to place, oriented to time, oriented to situation, CN II-XII grossly intact. ABSENT: motor sensory deficit Psychiatric exam: PRESENT: appropriate affect, normal mood. ABSENT: homicidal ideation, suicidal ideation Skin exam: PRESENT: dry, intact, warm. ABSENT: cyanosis, rash Results Laboratory Results: 01/12/19 08:00 01/12/19 08:00 01/12/19 01/12/19 01/12/19 08:00 08:00 08:30 WBC 10.1 RBC 5.19 Hgb 16.4 Hct 48.7 MCV 94 MCH 31.6 MCHC 33.6 RDW 14.3 H Plt Count 314 Seg Neutrophils % 68.8 Lymphocytes % 20.3 Monocytes % 9.8 Eosinophils % 0.9 Basophils % 0.2 Absolute Neutrophils 7.0 Absolute Lymphocytes 2.1 Absolute Monocytes 1.0 Absolute Eosinophils 0.1 Absolute Basophils 0.0 Carbonic Acid HCO3/H2CO3 Ratio ABG pH ABG pCO2 ABG pO2 ABG HCO3 ABG O2 Saturation ABG Base Excess FiO2 Sodium 143.1 Potassium 5.2 H Chloride 101 Carbon Dioxide 31 H Anion Gap 11 BUN 24 H Creatinine 0.84 Est GFR ( Amer) > 60 Est GFR (Non-Af Amer) > 60 Glucose 165 H Lactic Acid 1.5 Calcium 9.7 Total Bilirubin 0.7 AST 41 ALT 40 Alkaline Phosphatase 71 Total Protein 7.0 Albumin 4.6 01/12/19 01/12/19 08:50 09:14 WBC RBC Hgb Hct MCV MCH MCHC RDW Plt Count Seg Neutrophils % Lymphocytes % Monocytes % Eosinophils % Basophils % Absolute Neutrophils Absolute Lymphocytes Absolute Monocytes Absolute Eosinophils Absolute Basophils Carbonic Acid Cancelled 1.80 H HCO3/H2CO3 Ratio Cancelled 15:1 ABG pH Cancelled 7.29 L ABG pCO2 Cancelled 59.7 H ABG pO2 Cancelled 115.7 H ABG HCO3 Cancelled 27.9 H ABG O2 Saturation Cancelled 97.7 ABG Base Excess Cancelled -0.3 FiO2 Cancelled 40% Sodium Potassium Chloride Carbon Dioxide Anion Gap BUN Creatinine Est GFR ( Amer) Est GFR (Non-Af Amer) Glucose Lactic Acid Calcium Total Bilirubin AST ALT Alkaline Phosphatase Total Protein Albumin 01/12/19 01/12/19 08:00 08:00 Creatine Kinase 105 CK-MB (CK-2) 1.26 Troponin I < 0.012 NT-Pro-B Natriuret Pep 310 Impressions: Chest X-Ray 01/12/19 08:19 IMPRESSION: COPD. NO ACUTE RADIOGRAPHIC FINDING IN THE CHEST. Assessment & Plan - Diagnosis (1) Acute respiratory failure with hypoxia and hypercarbia Is this a current diagnosis for this admission?: Yes Plan: 58-year-old male with history of COPD admitted for acute on chronic respiratory failure with hypoxia and hypercapnia most likely secondary to COPD exacerbation. Plan is to place him in IMCU, started on ipratropium nebulizations and Xopenex nebulizations along with IV Solu-Medrol 40 mg every 8 hours[address] We are going to place him on BiPAP on as-needed basis. Started on IV Rocephin 2 g daily. Offered nicotine patches but patient refused. Patient will be placed on oxygen 2 L nasal cannula. Chest x-ray was negative for pneumonia. ABG done in the ER pH of 7.29/PCO2 59.7/PO2 115/ bicarb is 28. Plan is to repeat ABG in the morning. (2) History of atrial fibrillation Is this a current diagnosis for this admission?: Yes Plan: 01/12/2019-patient is given the history of atrial fibrillation used to be on Xarelto he stopped taking it presently he is on aspirin only. He is also taking sotalol at home. Plan is to resume his home medications. pt does not want to be on anticoagulation. EKG done today shows sinus tachycardia on examination is also patient is in sinus tachycardia. (3) Hypertension Is this a current diagnosis for this admission?: Yes Plan: 01/12/2019 patient is given the history of hypertension is on lisinopril at home plan is to resume the medication during the hospital stay. (4) COPD exacerbation Is this a current diagnosis for this admission?: Yes Plan: 01/12/2019 patient is admitted for COPD exacerbation he is not on home oxygen but uses [facility] at home. Plan is to resume the home therapy. (5) Tobacco abuse Is this a current diagnosis for this admission?: Yes Plan: 01/12/2019 patient is a chronic smoker smoking for more than 40 years. Smoking counseling was provided offered nicotine patches... patient refused. - Time Time Spent with patient: 15-24 minutes Medications reviewed and adjusted accordingly: Yes Anticipated discharge: Home
[2019-01-12 13:13] LABS: INTERNATIONAL RATION (INR) 0.98; PROTHROMBIN TIME 13.5 SEC (11.4-15.4)
[2019-01-12] MEDS ORDERED: METHYLPREDNISOLONE INJ 40 MG/1 ML SDV IV SCH (14:00)
[2019-01-12] MEDS ORDERED: CEFTRIAXONE 2 GM/D5W RTU 2 GM/50 ML RTUPB IV SCH (14:00)
[2019-01-12] MEDS ORDERED: LEVALBUTEROL HCL NEB 0.63 MG/3 ML AMPUL NEB SCH (14:00)
[2019-01-12 14:29] LABS: CREATINE KINASE MB 3.18 ng/mL (<4.55)
[2019-01-12 14:34] LABS: TROPONIN I 0.438 ng/mL
[2019-01-12] MEDS ORDERED: FLUTICASONE/UMECLIDIN/VILANTER 100-62.5-25 MCG/DOSE IH SCH (15:00)
[2019-01-12] MEDS ORDERED: MORPHINE SULFATE 10 MG/ML INJ IV PRN (15:06)
[2019-01-12] MEDS ORDERED: NITROGLYCERIN 0.4 MG/TAB 25 TAB/BOTTLE SL PRN (15:07)
[2019-01-12] MEDS ORDERED: CLOPIDOGREL BISULFATE 300 MG TABLET PO ONE (15:13)
--- NOTE | 2019-01-12 15:31 | PDOC H&P ---
History of Present Illness Admission Date/PCP: 01/12/19 11:17 Patient complains of: Chest pain and shortness of breath History of Present Illness: CASSIDY ART is a 58 year old male with history of COPD secondary to chronic smoking, hypertension, atrial fibrillation not on anticoagulation, previous history of cardiac surgery for calcified pericardium 2017 in [place] as per the family members came to the emergency room with complaints of 2 weeks history of shortness of breath and wheezing. The shortness of breath and wheezing associated with allergy symptoms like runny nose sinus headaches, he is also complained about cough coughing up yellow sputum. Denies any chest pains but complains of chest tightness, no fever no nausea no vomiting diarrhea or constipation is reported. Denies any rashes. In the emergency room workup was done he was placed on BiPAP medical consult was called for further management. Past Medical History Cardiac Medical History: Reports: Atrial Fibrillation, Congestive Heart Failure, Hypertension Denies: Myocardial Infarction Pulmonary Medical History: Reports: Chronic Obstructive Pulmonary Disease (COPD) Denies: Tuberculosis Neurological Medical History: Denies: Migraine Endocrine Medical History: Denies: Diabetes Mellitus Type 1, Diabetes Mellitus Type 2, Hyperthyroidism, Hypothyroidism GI Medical History: Reports: Gastroesophageal Reflux Disease Denies: Cirrhosis, Crohn's Disease, Hepatitis, Ulcerative Colitis Musculoskeltal Medical History: Denies: Arthritis, Fibromyalgia, Gout Skin Medical History: Denies: Eczema, Psoriasis Psychiatric Medical History: Reports: Personality Disorder Denies: Bipolar Disorder, Dementia, Depression, Post Traumatic Stress Disorder, Schizoaffective Disorder Traumatic Medical History: Reports: Pneumothorax Denies: Gunshot Wound Hematology: Denies: Anemia, Sickle Cell Disease, Bleeding Tendencies Past Surgical History Past Surgical History: Reports: Coronary Artery Bypass Graft, Other - Pericardectomy, cataracts Social History Smoking Status: Current Every Day Smoker Frequency of Alcohol Use: Social Hx Recreational Drug Use: No Drugs: None Hx Prescription Drug Abuse: No - Advance Directive Resuscitation Status: Full Code Family History Family History: CAD, DM, Hypertension Parental Family History Reviewed: Yes - Mother with cancer and diabetes Children Family History Reviewed: Yes Sibling(s) Family History Reviewed.: Yes Medication/Allergy Home Medications: Aspirin [Aspirin EC] 81 mg PO DAILY 12/27/17 Sotalol HCl [Sotalol AF] 120 mg PO Q12 12/27/17 Azithromycin [Zithromax] 250 mg PO ASDIR 01/12/19 Fluticasone/Umeclidin/Vilanter [Trelegy 100-62.5-25 Mcg Ellipta 14 Dose/Dpi] 1 puff IH DAILY 01/12/19 Lisinopril 20 mg PO QAM 01/12/19 Prednisone [Deltasone 5 mg Tablet] 10 mg PO DAILY 01/12/19 Allergies/Adverse Reactions: No Known Allergies Allergy (Verified 04/15/18 08:30) Review of Systems Constitutional: ABSENT: chills, fever(s), headache(s) Eyes: ABSENT: visual disturbances Ears: ABSENT: hearing changes Cardiovascular: PRESENT: chest pain, dyspnea on exertion, palpitations Respiratory: PRESENT: dyspnea Gastrointestinal: ABSENT: diarrhea Genitourinary: ABSENT: dysuria, hematuria Musculoskeletal: ABSENT: joint swelling Neurological: ABSENT: abnormal gait, abnormal speech, confusion, dizziness, focal weakness, syncope Psychiatric: ABSENT: anxiety, depression, homidical ideation, suicidal ideation Physical Exam Vital Signs: Temp Pulse Resp BP Pulse Ox 98 F 128 H 18 100/81 100 01/12/19 13:00 01/12/19 08:20 01/12/19 12:00 01/12/19 12:00 01/12/19 12:00 Intake & Output 01/11/19 01/12/19 01/13/19 06:59 06:59 06:59 Weight 76.8 kg General appearance: PRESENT: mild distress Head exam: PRESENT: atraumatic Eye exam: PRESENT: PERRLA Mouth exam: PRESENT: neck supple Teeth exam: PRESENT: poor dentation Neck exam: ABSENT: carotid bruit, JVD, lymphadenopathy, thyromegaly Respiratory exam: PRESENT: decreased breath sounds, wheezes Cardiovascular exam: PRESENT: tachycardia Pulses: PRESENT: normal dorsalis pedis pul GI/Abdominal exam: PRESENT: normal bowel sounds, soft. ABSENT: distended, guarding, mass, organolmegaly, rebound, tenderness Extremities exam: PRESENT: full ROM. ABSENT: calf tenderness, clubbing, pedal edema Neurological exam: PRESENT: alert, awake, oriented to person, oriented to place, oriented to time, oriented to situation, CN II-XII grossly intact. ABSENT: motor sensory deficit Psychiatric exam: PRESENT: appropriate affect, normal mood. ABSENT: homicidal ideation, suicidal ideation Results Laboratory Results: 01/12/19 08:00 01/12/19 08:00 01/12/19 01/12/19 01/12/19 08:00 08:00 08:30 WBC 10.1 RBC 5.19 Hgb 16.4 Hct 48.7 MCV 94 MCH 31.6 MCHC 33.6 RDW 14.3 H Plt Count 314 Seg Neutrophils % 68.8 Lymphocytes % 20.3 Monocytes % 9.8 Eosinophils % 0.9 Basophils % 0.2 Absolute Neutrophils 7.0 Absolute Lymphocytes 2.1 Absolute Monocytes 1.0 Absolute Eosinophils 0.1 Absolute Basophils 0.0 Carbonic Acid HCO3/H2CO3 Ratio ABG pH ABG pCO2 ABG pO2 ABG HCO3 ABG O2 Saturation ABG Base Excess FiO2 Sodium 143.1 Potassium 5.2 H Chloride 101 Carbon Dioxide 31 H Anion Gap 11 BUN 24 H Creatinine 0.84 Est GFR ( Amer) > 60 Est GFR (Non-Af Amer) > 60 Glucose 165 H Lactic Acid 1.5 Calcium 9.7 Total Bilirubin 0.7 AST 41 ALT 40 Alkaline Phosphatase 71 Total Protein 7.0 Albumin 4.6 01/12/19 01/12/19 08:50 09:14 WBC RBC Hgb Hct MCV MCH MCHC RDW Plt Count Seg Neutrophils % Lymphocytes % Monocytes % Eosinophils % Basophils % Absolute Neutrophils Absolute Lymphocytes Absolute Monocytes Absolute Eosinophils Absolute Basophils Carbonic Acid Cancelled 1.80 H HCO3/H2CO3 Ratio Cancelled 15:1 ABG pH Cancelled 7.29 L ABG pCO2 Cancelled 59.7 H ABG pO2 Cancelled 115.7 H ABG HCO3 Cancelled 27.9 H ABG O2 Saturation Cancelled 97.7 ABG Base Excess Cancelled -0.3 FiO2 Cancelled 40% Sodium Potassium Chloride Carbon Dioxide Anion Gap BUN Creatinine Est GFR ( Amer) Est GFR (Non-Af Amer) Glucose Lactic Acid Calcium Total Bilirubin AST ALT Alkaline Phosphatase Total Protein Albumin 01/12/19 01/12/19 01/12/19 08:00 08:00 13:40 Creatine Kinase 105 98 CK-MB (CK-2) 1.26 Troponin I < 0.012 NT-Pro-B Natriuret Pep 310 01/12/19 13:40 Creatine Kinase CK-MB (CK-2) 3.18 Troponin I 0.438 NT-Pro-B Natriuret Pep Impressions: Chest X-Ray 01/12/19 08:19 IMPRESSION: COPD. NO ACUTE RADIOGRAPHIC FINDING IN THE CHEST. Assessment & Plan - Diagnosis (1) Acute respiratory failure with hypoxia and hypercarbia Is this a current diagnosis for this admission?: Yes Plan: 58-year-old male with history of COPD admitted for acute on chronic respiratory failure with hypoxia and hypercapnia most likely secondary to COPD exacerbation. Plan is to place him in IMCU, started on ipratropium nebulizations and Xopenex nebulizations along with IV Solu-Medrol 40 mg every 8 hours[address] We are going to place him on BiPAP on as-needed basis. Started on IV Rocephin 2 g daily. Offered nicotine patches but patient refused. Patient will be placed on oxygen 2 L nasal cannula. Chest x-ray was negative for pneumonia. ABG done in the ER pH of 7.29/PCO2 59.7/PO2 115/ bicarb is 28. Plan is to repeat ABG in the morning. (2) History of atrial fibrillation Is this a current diagnosis for this admission?: Yes Plan: 01/12/2019-patient is given the history of atrial fibrillation used to be on Xarelto he stopped taking it presently he is on aspirin only. He is also taking sotalol at home. Plan is to resume his home medications. pt does not want to be on anticoagulation. EKG done today shows sinus tachycardia on examination is also patient is in sinus tachycardia. (3) Hypertension Is this a current diagnosis for this admission?: Yes Plan: 01/12/2019 patient is given the history of hypertension is on lisinopril at home plan is to resume the medication during the hospital stay. (4) COPD exacerbation Is this a current diagnosis for this admission?: Yes Plan: 01/12/2019 patient is admitted for COPD exacerbation he is not on home oxygen but uses [facility] at home. Plan is to resume the home therapy. (5) Tobacco abuse Is this a current diagnosis for this admission?: Yes Plan: 01/12/2019 patient is a chronic smoker smoking for more than 40 years. Smoking counseling was provided offered nicotine patches... patient refused. (6) Non-STEMI (non-ST elevated myocardial infarction) Is this a current diagnosis for this admission?: Yes Plan: 01/12/2019-patient came in with shortness of breath and chest pains. Initial troponin was less than 0.012 and the second troponin is 0.438 EKG was done found to have a diffuse T wave inversions from V3 to V6. Patient is continued to complain of chest pain. Spoke to Dr. Holliday in the [facility] he recommended to transfer the patient to the ED there for further evaluation. In the meantime patient was started on Lovenox 75 mg subcu every 12 hours, 300 mg of Plavix was given, he is already on aspirin, already on atorvastatin 20 mg. STEMI protocol is not implemented. STACEY score is 4. Sat with the patient and his explained to them that patient needs to be transferred to tertiary care facility and explained the benefits and risks involving the transfer. They agreed to go to [facility]. - Time Time Spent: 50 to 70 Minutes Smoking Cessation Education: over 10 minutes Anticipated discharge: Home
--- NOTE | 2019-01-12 15:40 | PDOC TRANSFER SUMMARY ---
General Admission Date/PCP: 01/12/19 11:17 Resuscitation Status: Full Code - Transfer Diagnosis (1) Non-STEMI (non-ST elevated myocardial infarction) Is this a current diagnosis for this admission?: Yes Diagnosis Summary: 01/12/2019-patient came in with shortness of breath and chest pains. Initial troponin was less than 0.012 and the second troponin is 0.438 EKG was done found to have a diffuse T wave inversions from V3 to V6. Patient is continued to complain of chest pain. Spoke to Dr. Holliday in the [facility] he recommended to transfer the patient to the ED there for further evaluation. In the meantime patient was started on Lovenox 75 mg subcu every 12 hours, 300 mg of Plavix was given, he is already on aspirin, already on atorvastatin 20 mg. STEMI protocol is not implemented. STACEY score is 4. Sat with the patient and his explained to them that patient needs to be transferred to tertiary care facility and explained the benefits and risks involving the transfer. They agreed to go to [facility]. (2) Acute respiratory failure with hypoxia and hypercarbia Is this a current diagnosis for this admission?: Yes Diagnosis Summary: 58-year-old male with history of COPD admitted for acute on chronic respiratory failure with hypoxia and hypercapnia most likely secondary to COPD exacerbation. Plan is to place him in IMCU, started on ipratropium nebulizations and Xopenex nebulizations along with IV Solu-Medrol 40 mg every 8 hours. We are going to place him on BiPAP on as-needed basis. Started on IV Rocephin 2 g daily. Offered nicotine patches but patient refused. Patient will be placed on oxygen 2 L nasal cannula. Chest x-ray was negative for pneumonia. ABG done in the ER pH of 7.29/PCO2 59.7/PO2 115/ bicarb is 28. Plan is to repeat ABG in the morning. (3) History of atrial fibrillation Is this a current diagnosis for this admission?: Yes Diagnosis Summary: 01/12/2019-patient is given the history of atrial fibrillation used to be on Xarelto he stopped taking it presently he is on aspirin only. He is also taking sotalol at home. Plan is to resume his home medications. pt does not want to be on anticoagulation. EKG done today shows sinus tachycardia on examination is also patient is in sinus tachycardia. (4) Hypertension Is this a current diagnosis for this admission?: Yes Diagnosis Summary: 01/12/2019 patient is given the history of hypertension is on lisinopril at home plan is to resume the medication during the hospital stay. (5) COPD exacerbation Is this a current diagnosis for this admission?: Yes Diagnosis Summary: 01/12/2019 patient is given the history of hypertension is on lisinopril at home plan is to resume the medication during the hospital stay. (6) Tobacco abuse Is this a current diagnosis for this admission?: Yes - Transfer Medications Home Medications: Aspirin [Aspirin EC] 81 mg PO DAILY 12/27/17 Sotalol HCl [Sotalol AF] 120 mg PO Q12 12/27/17 Azithromycin [Zithromax] 250 mg PO ASDIR 01/12/19 Fluticasone/Umeclidin/Vilanter [Trelegy 100-62.5-25 Mcg Ellipta 14 Dose/Dpi] 1 puff IH DAILY 01/12/19 Lisinopril 20 mg PO QAM 01/12/19 Prednisone [Deltasone 5 mg Tablet] 10 mg PO DAILY 01/12/19 Transfer Medications: Current Medications Acetaminophen (Tylenol 325 Mg Tablet) 325,650 mg PO Q4HP PRN PRN Reason: FEVER >101 Stop: 02/11/19 12:26 Albuterol/Ipratropium (Duoneb 3 Ml Ampul) 3 ml NEB RTQ4HP PRN PRN Reason: SHORTNESS OF BREATH Stop: 02/11/19 12:26 Aspirin (Ecotrin 81 Mg Ec Tablet) 81 mg PO DAILY [facility]ADE Stop: 02/12/19 09:59 Atorvastatin Calcium (Lipitor 20 Mg Tablet) 20 mg PO QHS WADE Stop: 02/11/19 21:59 Docusate Sodium (Colace 100 Mg Capsule) 100 mg PO BID WADE Stop: 02/11/19 17:59 Enoxaparin Sodium (Lovenox Inj 80 Mg/0.8 Ml Disp.Syrin) 75 mg SUBCUT Q12 [facility]ADE Stop: 02/11/19 21:59 Famotidine (Pepcid 20 Mg Tablet) 20 mg PO Q12 [facility] Stop: 02/11/19 21:59 Fluticasone/Vilanterol (Trelegy 100-62.5-25 Mcg Ellipta 14 Dose/Dpi) 1 inh IH DAILY [facility] Stop: 02/11/19 14:59 Ceftriaxone Sodium/Dextrose (Rocephin Rtu 2 Gm/D5w 50 Ml Premix Bag) 2 gm in 50 mls @ 100 mls/hr IV DAILY [facility] Stop: 01/19/19 13:59 Last Admin: 01/12/19 15:14 Dose: 4 g/hr, 100 mls/hr Documented by: Levalbuterol HCl (Xopenex Neb 0.63 Mg/3 Ml Ampul) 0.63 mg NEB RTQ6 WADE Stop: 02/11/19 13:59 Last Admin: 01/12/19 13:54 Dose: 0.63 mg Documented by: Methylprednisolone Sodium Succinate (Solu-Medrol Inj/Pf 40 Mg/1 Ml Sdv) 40 mg IV Q8 [facility] Stop: 02/11/19 13:59 Last Admin: 01/12/19 15:13 Dose: 40 mg Documented by: Morphine Sulfate (Morphine 10 Mg/Ml Inj) 2 mg IV Q4HP PRN PRN Reason: PAIN SCALE OF 3 Stop: 01/19/19 15:05 Nitroglycerin (Nitrostat 0.4 Mg (1/150 Gr) Tabs 25/Bottle) 1 tab SL Q5MP PRN PRN Reason: FOR CHEST PAIN Stop: 02/11/19 15:06 Ondansetron HCl (Zofran Inj/Pf 4 Mg/2 Ml Sdv) 4 mg IV Q6HP PRN PRN Reason: FOR NAUSEA/VOMITING Stop: 02/11/19 12:26 Ondansetron HCl (Zofran Odt 4 Mg Tablet) 4 mg PO Q6HP PRN PRN Reason: FOR NAUSEA/VOMITING Stop: 02/11/19 12:26 Patient Own Medication (Lisinopril [Lisinopril]) 1 tab PO DAILY [facility] Stop: 02/12/19 09:59 Patient Own Medication (Sotalol Hcl [Sotalol Af]) 120 mg PO Q12 [facility] Stop: 02/11/19 21:59 Sodium Chloride (Saline Flush 2.5 Ml Monoject Prefil Syrin) 2.5 ml IV Q8 [facility] Stop: 02/11/19 13:59 Last Admin: 01/12/19 15:13 Dose: 2.5 ml Documented by: - Allergies Allergies/Adverse Reactions: No Known Allergies Allergy (Verified 04/15/18 08:30) Hospital Course Hospital Course: This 58-year-old male with history of COPD, atrial fibrillation, history of CABG, pericardial surgery, chronic smoker, hypertension came to the emergency room with complaints of shortness of breath and chest tightness/chest pain. She will troponin is negative and EKG is nonspecific. Second EKG shows troponin of 0.438 and EKG shows diffuse T wave inversions from V3 to V6. Patient is continued to complains of chest tightness/chest pain. Started on Lovenox 75 mg/kg every 12 hours, atorvastatin 20 mg aspirin 81 mg, given Plavix 300 mg stat dose. He was also placed on IV morphine 2 mg every 4 as needed for chest pain and nitroglycerin 0.4 mg sublingual as needed for chest pains. Start troponin was requested. Spoke to Dr. Holliday in [facility] I agree with his recommendations that patient does not need any STEMI protocol. Dr. Holliday requested the patient to be transferred to the ED [facility] for further management. Discussed the plan of care with the family members they agreed with the plan. Physical Exam Vital Signs: Temp Pulse Resp BP Pulse Ox 98 F 128 H 18 100/81 94 01/12/19 13:00 01/12/19 08:20 01/12/19 12:00 01/12/19 12:00 01/12/19 15:29 Intake & Output 01/11/19 01/12/19 01/13/19 06:59 06:59 06:59 Weight 76.8 kg General appearance: PRESENT: mild distress Head exam: PRESENT: atraumatic Eye exam: PRESENT: PERRLA Mouth exam: PRESENT: dry mucosa Neck exam: ABSENT: carotid bruit, JVD, lymphadenopathy, thyromegaly Respiratory exam: PRESENT: decreased breath sounds, wheezes Cardiovascular exam: PRESENT: tachycardia GI/Abdominal exam: PRESENT: normal bowel sounds, soft. ABSENT: distended, guarding, mass, organolmegaly, rebound, tenderness Extremities exam: PRESENT: full ROM. ABSENT: calf tenderness, clubbing, pedal edema Neurological exam: PRESENT: alert, awake, oriented to person, oriented to place, oriented to time, oriented to situation, CN II-XII grossly intact. ABSENT: motor sensory deficit Psychiatric exam: PRESENT: appropriate affect, normal mood. ABSENT: homicidal ideation, suicidal ideation Results Laboratory Results: 01/12/19 08:00 01/12/19 08:00 01/12/19 01/12/19 01/12/19 08:00 08:00 08:30 WBC 10.1 RBC 5.19 Hgb 16.4 Hct 48.7 MCV 94 MCH 31.6 MCHC 33.6 RDW 14.3 H Plt Count 314 Seg Neutrophils % 68.8 Lymphocytes % 20.3 Monocytes % 9.8 Eosinophils % 0.9 Basophils % 0.2 Absolute Neutrophils 7.0 Absolute Lymphocytes 2.1 Absolute Monocytes 1.0 Absolute Eosinophils 0.1 Absolute Basophils 0.0 Carbonic Acid HCO3/H2CO3 Ratio ABG pH ABG pCO2 ABG pO2 ABG HCO3 ABG O2 Saturation ABG Base Excess FiO2 Sodium 143.1 Potassium 5.2 H Chloride 101 Carbon Dioxide 31 H Anion Gap 11 BUN 24 H Creatinine 0.84 Est GFR ( Amer) > 60 Est GFR (Non-Af Amer) > 60 Glucose 165 H Lactic Acid 1.5 Calcium 9.7 Total Bilirubin 0.7 AST 41 ALT 40 Alkaline Phosphatase 71 Total Protein 7.0 Albumin 4.6 01/12/19 01/12/19 08:50 09:14 WBC RBC Hgb Hct MCV MCH MCHC RDW Plt Count Seg Neutrophils % Lymphocytes % Monocytes % Eosinophils % Basophils % Absolute Neutrophils Absolute Lymphocytes Absolute Monocytes Absolute Eosinophils Absolute Basophils Carbonic Acid Cancelled 1.80 H HCO3/H2CO3 Ratio Cancelled 15:1 ABG pH Cancelled 7.29 L ABG pCO2 Cancelled 59.7 H ABG pO2 Cancelled 115.7 H ABG HCO3 Cancelled 27.9 H ABG O2 Saturation Cancelled 97.7 ABG Base Excess Cancelled -0.3 FiO2 Cancelled 40% Sodium Potassium Chloride Carbon Dioxide Anion Gap BUN Creatinine Est GFR ( Amer) Est GFR (Non-Af Amer) Glucose Lactic Acid Calcium Total Bilirubin AST ALT Alkaline Phosphatase Total Protein Albumin 01/12/19 01/12/19 01/12/19 08:00 08:00 13:40 Creatine Kinase 105 98 CK-MB (CK-2) 1.26 Troponin I < 0.012 NT-Pro-B Natriuret Pep 310 01/12/19 13:40 Creatine Kinase CK-MB (CK-2) 3.18 Troponin I 0.438 NT-Pro-B Natriuret Pep Impressions: Chest X-Ray 01/12/19 08:19 IMPRESSION: COPD. NO ACUTE RADIOGRAPHIC FINDING IN THE CHEST. Plan Discharge Plan: To transfer the patient to [facility] emergency room. Time Spent: Greater than 30 Minutes
--- NOTE | 2019-01-12 15:52 | EKG REPORT ---
SEVERITY:- ABNORMAL ECG - SINUS RHYTHM LOW VOLTAGE IN FRONTAL LEADS ABNORMAL T, CONSIDER ISCHEMIA, DIFFUSE LEADS : Confirmed by: Linus Pagan MD 12-Jan-2019 15:50:58
[2019-01-12 16:16] VITALS: BP 135/97
[2019-01-12] MEDS ORDERED: DOCUSATE SODIUM 100 MG CAPSULE PO SCH (18:00)
[2019-01-12] MEDS ORDERED: FAMOTIDINE 20 MG TABLET PO SCH (22:00)
[2019-01-12] MEDS ORDERED: ENOXAPARIN SODIUM INJ 80 MG/0.8 ML DISP.SYRIN SUBCUT SCH (22:00)
[2019-01-12] MEDS ORDERED: SOTALOL HCL 120 MG PO SCH (22:00)
[2019-01-12] MEDS ORDERED: ATORVASTATIN CALCIUM 20 MG TABLET PO SCH (22:00)
[2019-01-13] MEDS ORDERED: (PENDING PHARMACY ID) (Lisinopril [Lisinopril] 1 TAB) PO SCH (10:00)
[2019-01-13] MEDS ORDERED: ENOXAPARIN SODIUM INJ 40 MG/0.4 ML DISP.SYRIN SUBCUT SCH (10:00)
[2019-01-13] MEDS ORDERED: ASPIRIN 81 MG TABLET, ENT COATED PO SCH (10:00)
== END 2019-01-12 16:10 | disposition short-term general hospital (02) | DRG 280 ==
LOC: ER 08:13 → EH 11:17
PROVIDERS: ADMIT Internal Medicine; ATTEND Internal Medicine
PROC: 5A09357 Assistance with Respiratory Ventilation, Less than 24 Consecutive Hours, Continuous Positive Airway Pressure (ICD-10-PCS; principal; 2019-01-12)
DX: I21.4 Non-ST elevation (NSTEMI) myocardial infarction (principal); J96.01 Acute respiratory failure with hypoxia; J96.02 Acute respiratory failure with hypercapnia; J44.1 Chronic obstructive pulmonary disease with (acute) exacerbation; I10 Essential (primary) hypertension; I48.91 Unspecified atrial fibrillation; K21.9 Gastro-esophageal reflux disease without esophagitis; F60.9 Personality disorder, unspecified; I25.10 Atherosclerotic heart disease of native coronary artery without angina pectoris; F17.200 Nicotine dependence, unspecified, uncomplicated; R00.0 Tachycardia, unspecified; Z82.49 Family history of ischemic heart disease and other diseases of the circulatory system; Z83.3 Family history of diabetes mellitus; Z79.82 Long term (current) use of aspirin
CPT/HCPCS: 36415; 36600; 71045; 80053; 82550; 82553; 82803; 83605; 83880; 84484; 85025; 85610; 87040; 93005; 93010; 94640; 94660; 96374; 99285; J0696; J2060; J2920; J3490; J7614; J7620

== ENCOUNTER 2019-02-19 08:07 | Emergency (ER) | payer BC ==
[2019-02-19] MEDS ORDERED: AZITHROMYCIN 250 MG TABLET PO ONE (08:56)
[2019-02-19] MEDS ORDERED: PREDNISONE 20 MG TABLET PO ONE (08:56)
[2019-02-19] MEDS ORDERED: IPRATROPIUM/ALBUTEROL 0.5-2.5 MG/3 ML AMPUL NEB ONE (08:56)
[2019-02-19] MEDS ORDERED: ALBUTEROL SULFATE 0.083% NEB 2.5 MG/3 ML AMPUL NEB ONE (08:56)
--- NOTE | 2019-02-19 08:58 | ER Document Report ---
ED General - General Chief Complaint: Breathing Difficulty Stated Complaint: DIFFICULTY BREATHING Time Seen by Provider: 02/19/19 08:38 TRAVEL OUTSIDE OF THE [place] IN LAST 30 DAYS: No - HPI Notes: Patient is a 58-year-old male that presents to the emergency department for chief complaint of shortness of breath. Patient reports being admitted to the hospital about a month ago for COPD. He states since getting out he has still had shortness of breath. He has been using his home albuterol every 3 hours for the last few days and has noticed increased sputum production over the last 3 days. He is currently on prednisone 10 mg daily and did take his dose this morning. He denies any associated fever, chills, chest pain and lightheadedness. He states any exertion does make the shortness of breath worse. He denies orthopnea. Past Medical History: COPD, A. fib Past Surgical History: Pericardectomy Social History: Former smoker, denies drug use. occasional alcohol use Family History: Reviewed and noncontributory for presenting illness Allergies: Reviewed, see documented allergy list. REVIEW OF SYSTEMS: CONSTITUTIONAL : No fever No chills No diaphoresis No recent illness EENT: No vision changes No congestion No sore throat CARDIOVASCULAR: No chest pain No palpitations RESPIRATORY: shortness of breath cough difficulty breathing GASTROINTESTINAL: No abdominal pain No nausea No vomiting No diarrhea GENITOURINARY: No dysuria No hematuria No difficulty urinating MUSCULOSKELETAL: No back pain No leg pain No arm pain SKIN: No rashes No lesions LYMPHATIC: No swollen, enlarged glands. NEUROLOGICAL: No lightheadedness No headache No weakness No paresthesias PSYCHIATRIC: No anxiety No depression PHYSICAL EXAMINATION: Vital signs reviewed, nursing noted reviewed. GENERAL: Well-appearing, well-nourished and in no acute distress. HEAD: Atraumatic, normocephalic. EYES: Eyes appear normal, extraocular movements intact, sclera anicteric, conjunctiva are normal. ENT: nares patent, oropharynx clear without exudates. Moist mucous membranes. NECK: Normal range of motion, supple without lymphadenopathy LUNGS: Expiratory wheezing bilaterally with no accessory muscle use or apparent tachypnea. No respiratory distress. HEART: Regular rate and rhythm without murmurs ABDOMEN: Soft, nontender, normoactive bowel sounds. No rebound, guarding, or rigidity. No masses appreciated. EXTREMITIES: Nontender, good range of motion, no pitting or edema. NEUROLOGICAL: No focal neurological deficits. Moves all extremities spontaneous ly Motor and sensory grossly intact on exam. PSYCH: Normal mood, normal affect. SKIN: Warm, Dry, normal turgor, no rashes or lesions noted on exposed skin - Related Data Allergies/Adverse Reactions: No Known Allergies Allergy (Verified 02/19/19 08:08) Past Medical History - Social History Smoking Status: Former Smoker Family History: CAD, DM, Hypertension Patient has suicidal ideation: No Patient has homicidal ideation: No - Past Medical History Cardiac Medical History: Reports: Hx Atrial Fibrillation, Hx Congestive Heart Failure, Hx Hypertension Denies: Hx Heart Attack Pulmonary Medical History: Reports: Hx COPD Denies: Hx Tuberculosis Neurological Medical History: Denies: Hx Migraine Endocrine Medical History: Denies: Hx Diabetes Mellitus Type 1, Hx Diabetes Mellitus Type 2, Hx Hyperthyroidism, Hx Hypothyroidism Renal/ Medical History: Denies: Hx Peritoneal Dialysis GI Medical History: Reports: Hx Gastroesophageal Reflux Disease. Denies: Hx Cirrhosis, Hx Crohn's Disease, Hx Hepatitis, Hx Ulcerative Colitis Musculoskeletal Medical History: Denies Hx Arthritis, Denies Hx Fibromyalgia, Denies Hx Gout Skin Medical History: Denies Hx Eczema, Denies Hx Psoriasis Psychiatric Medical History: Reports: Hx Personality Disorder Denies: Hx Bipolar Disorder, Hx Dementia, Hx Depression, Hx Post Traumatic Stress Disorder, Hx Schizoaffective Disorder Traumatic Medical History: Reports: Hx Pneumothorax. Denies: Hx Gunshot Wound Infectious Medical History: Denies: Hx Hepatitis Past Surgical History: Reports: Hx Cardiac Surgery - sac around heart removed, Hx Coronary Artery Bypass Graft, Other - Pericardectomy, cataracts - Immunizations Hx Diphtheria, Pertussis, Tetanus Vaccination: No Hx Pneumococcal Vaccination: 11/19/17 Physical Exam - Vital signs Vitals: Temp Pulse Resp BP Pulse Ox 97.6 F 62 24 H 110/78 96 02/19/19 08:10 02/19/19 08:10 02/19/19 08:10 02/19/19 08:10 02/19/19 08:10 Course - Re-evaluation Re-evalutation: 02/19/19 10:44 Vitals reviewed. Nursing notes reviewed. Patient did have symptomatic improvement after aerosol treatments. He already took 10 mg of prednisone prior to arrival and was given another 30 mg in the emergency room. Patient has been oxygenating well on room air and is in no acute respiratory distress. He will be started on a 5-day burst of steroids and will continue using his albuterol inhaler. Patient will also be started on azithromycin for his increased mucus production. 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 He will return for new or worsening symptoms. He is stable at discharge. Laboratory 02/19/19 02/19/19 02/19/19 08:54 08:54 08:54 WBC 9.5 RBC 5.09 Hgb 15.9 Hct 46.7 MCV 92 MCH 31.1 MCHC 33.9 RDW 13.5 Plt Count 269 Seg Neutrophils % 85.6 H Lymphocytes % 6.4 L Monocytes % 6.4 Eosinophils % 0.9 Basophils % 0.7 Absolute Neutrophils 8.2 Absolute Lymphocytes 0.6 Absolute Monocytes 0.6 Absolute Eosinophils 0.1 Absolute Basophils 0.1 Sodium 137.8 Potassium 4.9 Chloride 102 Carbon Dioxide 29 Anion Gap 7 BUN 16 Creatinine 0.60 Est GFR ( Amer) > 60 Est GFR (Non-Af Amer) > 60 Glucose 95 Calcium 10.1 Total Bilirubin 0.9 Direct Bilirubin 0.4 Neonat Total Bilirubin Not Reportable Neonat Direct Bilirubin Not Reportable Neonat Indirect Bili Not Reportable AST 32 ALT 36 Alkaline Phosphatase 69 Troponin I < 0.012 Total Protein 7.3 Albumin 4.5 Chest X-Ray 02/19/19 08:38 IMPRESSION: Emphysematous change without evidence of acute cardiopulmonary process. Unchanged lingular scarring. - Vital Signs Vital signs: Temp Pulse Resp BP Pulse Ox 97.6 F 62 24 H 110/78 96 02/19/19 08:10 02/19/19 08:10 02/19/19 08:10 02/19/19 08:10 02/19/19 08:38 - Laboratory Result Diagrams: 02/19/19 08:54 02/19/19 08:54 Laboratory results interpreted by me: 02/19/19 08:54 Seg Neutrophils % 85.6 H Lymphocytes % 6.4 L - EKG Interpretation by Me Additional EKG results interpreted by me: 02/19/19 10:45 Interpreted by myself 0905: Normal sinus rhythm, rate 55, normal axis, no ectopy, no ST elevation, deep T wave inversions precordially and laterally similar in appearance to 01/12/19 Discharge - Discharge Clinical Impression: COPD exacerbation Condition: Stable Disposition: HOME, SELF-CARE Instructions: Chronic Obstructive Lung Disease ([facility]) Additional Instructions: Please return to the emergency department if you have any worsening, or concern of your symptoms. Please return to the emergency department if you develop chest pain, difficulty breathing, severe abdominal pain, or ongoing vomiting. Please follow-up with your primary care physician in 2-3 days and any other recommended physicians. If prescribed, take all medications as directed. If you have any questions or concerns do not hesitate to return the emergency department for evaluation. Continue using your home albuterol 2 puffs every 4 hours, return to the emergency room if you are requiring albuterol more frequently than 4 hours or you have increasing shortness of breath Prescriptions: Azithromycin [Zithromax 250 mg Tablet] 250 mg PO DAILY #4 tablet Prednisone [Deltasone 20 mg Tablet] 2 tab PO DAILY 5 Days tablet Referrals: [facility] [Provider Group] - Follow up as needed
[2019-02-19 09:06] LABS: ABSOLUTE BASOPHILS # (AUTO) 0.1 10^3/uL (0.0-0.2); ABSOLUTE EOSINOPHILS # (AUTO) 0.1 10^3/uL (0.0-0.6); ABSOLUTE LYMPHOCYTES (AUTO) 0.6 10^3/uL (0.5-4.7); ABSOLUTE MONOCYTES (AUTO) 0.6 10^3/uL (0.1-1.4); ABSOLUTE NEUT (AUTO) 8.2 10^3/uL (1.7-8.2); BASOPHILS % (AUTO) 0.7 % (0-2); EOSINOPHILS % (AUTO) 0.9 % (0-6); HEMATOCRIT 46.7 % (37.9-51.0); HEMOGLOBIN 15.9 g/dL (13.5-17.0); LYMPHOCYTES % (AUTO) 6.4 % (13-45); MEAN CORPUSCULAR HEMOGLOBIN 31.1 pg (27.0-33.4); MEAN CORPUSCULAR HGB CONC 33.9 g/dL (32.0-36.0); MEAN CORPUSCULAR VOLUME 92 fl (80-97); MONOCYTES % (AUTO) 6.4 % (3-13); PLATELET COUNT 269 10^3/uL (150-450); RED BLOOD COUNT 5.09 10^6/uL (4.35-5.55); RED CELL DISTRIBUTION WIDTH 13.5 % (11.5-14.0); SEGMENTED NEUTROPHILS % (AUTO) 85.6 % (42-78); TOTAL CELLS COUNTED % (AUTO) 100 %; WHITE BLOOD COUNT 9.5 10^3/uL (4.0-10.5)
--- NOTE | 2019-02-19 09:24 | RADIOLOGY REPORT (SQ) ---
EXAM DESCRIPTION: CHEST SINGLE VIEW COMPLETED DATE/TIME: 02/19/2019 9:12 am REASON FOR STUDY: shortness of breath COMPARISON: 01/12/2019 EXAM PARAMETERS: NUMBER OF VIEWS: One view. TECHNIQUE: Single frontal radiographic view of the chest acquired. RADIATION DOSE: NA LIMITATIONS: None. FINDINGS: LUNGS AND PLEURA: Emphysematous change. Unchanged linear opacities in the left lingula, l ikely scarring. Unchanged blunting of the bilateral costophrenic angles. No new airspace disease, p leural effusion or pneumothorax. MEDIASTINUM AND HILAR STRUCTURES: No masses. Contour normal. HEART AND VASCULAR STRUCTURES: Heart normal in size. Normal vasculature. BONES: No acute findings. Prior median sternotomy. Chronic right-sided rib fractures. HARDWARE: Median sternotomy hardware. OTHER: No other significant finding. IMPRESSION: Emphysematous change without evidence of acute cardiopulmonary process. Unchanged lingu lar scarring. TECHNICAL DOCUMENTATION: JOB ID: [id number] [employer]- All Rights Reserved Reading location - IP/workstation name: [email or web address]
[2019-02-19 09:27] LABS: ALANINE AMINOTRANSFERASE 36 U/L (21-72); ALBUMIN 4.5 g/dL (3.5-5.0); ALKALINE PHOSPHATASE 69 U/L (38-126); ANION GAP 7 (5-19); ASPARTATE AMINO TRANSFERASE 32 U/L (17-59); BILIRUBIN,DIRECT 0.4 mg/dL (0.0-0.4); BILIRUBIN,TOTAL 0.9 mg/dL (0.2-1.3); BLOOD UREA NITROGEN 16 mg/dL (7-20); CALCIUM 10.1 mg/dL (8.4-10.2); CARBON DIOXIDE 29 mmol/L (22-30); CHLORIDE 102 mmol/L (98-107); GLUCOSE 95 mg/dL (75-110); POTASSIUM 4.9 mmol/L (3.6-5.0); SODIUM 137.8 mmol/L (137-145); TOTAL PROTEIN 7.3 g/dL (6.3-8.2)
[2019-02-19 11:04] VITALS: BP 110/76
--- NOTE | 2019-02-19 11:45 | EKG REPORT ---
SEVERITY:- ABNORMAL ECG - SINUS RHYTHM ABNORMAL T, PROBABLE ISCHEMIA, ANT-LAT LEADS UNCHANGED FROM 01/12/[address] CHANGES IN INFERIOR LEADS HAVE IMPROVED FROM 01/12/19 EKG : Confirmed by: Linus Pagan MD 19-Feb-2019 11:44:01
== END 2019-02-19 11:04 | disposition home or self-care (01) ==
LOC: ER 08:07
DX: J44.1 Chronic obstructive pulmonary disease with (acute) exacerbation (principal); Z79.52 Long term (current) use of systemic steroids; R06.02 Shortness of breath; R05 Cough; I10 Essential (primary) hypertension; Z87.891 Personal history of nicotine dependence
CPT/HCPCS: 93005; 94640 ×2; 99285; 36415; 85025; 80053; 84484; 71045; 93010; J7512; J7620

== ENCOUNTER → 2019-02-27 | Outpatient (CLI) | payer BC ==
[2019-02-27 12:10] LABS: ABSOLUTE MONOCYTES (AUTO) 0.4 10^3/uL (0.1-1.4); ABSOLUTE NEUT (AUTO) 9.2 10^3/uL (1.7-8.2); BASOPHILS % (AUTO) 0.4 % (0-2); EOSINOPHILS % (AUTO) 0.2 % (0-6); HEMOGLOBIN 16.2 g/dL (13.5-17.0); LYMPHOCYTES % (AUTO) 9.3 % (13-45); MEAN CORPUSCULAR HEMOGLOBIN 31.8 pg (27.0-33.4); MEAN CORPUSCULAR HGB CONC 34.5 g/dL (32.0-36.0); MEAN CORPUSCULAR VOLUME 92 fl (80-97); MONOCYTES % (AUTO) 3.5 % (3-13); PLATELET COUNT 293 10^3/uL (150-450); RED BLOOD COUNT 5.11 10^6/uL (4.35-5.55); RED CELL DISTRIBUTION WIDTH 13.5 % (11.5-14.0); SEGMENTED NEUTROPHILS % (AUTO) 86.6 % (42-78); TOTAL CELLS COUNTED % (AUTO) 100 %; WHITE BLOOD COUNT 10.7 10^3/uL (4.0-10.5)
[2019-02-27 12:34] LABS: ALANINE AMINOTRANSFERASE 34 U/L (21-72); ALBUMIN 4.3 g/dL (3.5-5.0); ALKALINE PHOSPHATASE 71 U/L (38-126); ANION GAP 5 (5-19); ASPARTATE AMINO TRANSFERASE 25 U/L (17-59); BILIRUBIN,DIRECT 0.3 mg/dL (0.0-0.4); BILIRUBIN,TOTAL 0.8 mg/dL (0.2-1.3); BLOOD UREA NITROGEN 18 mg/dL (7-20); CALCIUM 10.5 mg/dL (8.4-10.2); CHOLESTEROL 152.89 mg/dL (0-200); GLUCOSE 105 mg/dL (75-110); POTASSIUM 5.5 mmol/L (3.6-5.0); TOTAL PROTEIN 7.1 g/dL (6.3-8.2); TRIGLYCERIDES 100 mg/dL (<150)
[2019-02-27 12:40] LABS: CARBON DIOXIDE 36 mmol/L (22-30); CHLORIDE 100 mmol/L (98-107); SODIUM 141.2 mmol/L (137-145)
[2019-02-27 12:45] LABS: DIRECT LDL 67 mg/dL (<100)
== END ==
LOC: OD 11:22
PROVIDERS: ATTEND Family Medicine Geriatric Medicine
DX: I25.10 Atherosclerotic heart disease of native coronary artery without angina pectoris (principal); J44.1 Chronic obstructive pulmonary disease with (acute) exacerbation; I50.9 Heart failure, unspecified; Z79.899 Other long term (current) drug therapy
CPT/HCPCS: 36415; 80053; 80061; 84443; 85025

== ENCOUNTER 2019-05-27 07:00 | Day surgery (SDC) | payer BC ==
[~2019-05-27 07:00] MED LIST: KETOROLAC TROMETHAMINE 0.45% 4 DROP/0.4 ML DROPERETTE OS PRN
[2019-05-27] MEDS ORDERED: LIDOCAINE 1% INJ-PF (10 MG/ML) 30 ML SDV ONE (07:24)
[2019-05-27] MEDS: TROPICAMIDE 1% OPH SOLN 3 ML OS PRN ×3 (07:40→08:00)
[2019-05-27] MEDS: CYCLOPENTOLATE 0.2%/PHENYLEPHRINE 1% OPH SOLN 2 ML OS PRN ×3 (07:40→08:00)
[2019-05-27] MEDS: BESIFLOXACIN HCL 0.6% OPH SUSP 5 ML BOTTLE OS PRN ×4 (07:41→08:39)
[2019-05-27] MEDS: TETRACAINE HCL 0.5% OPH SOLN 0.6 ML DROPERETTE OS PRN ×2 (07:42→08:10)
[2019-05-27] MEDS ORDERED: MIDAZOLAM 2 MG/2 ML INJ ONE (07:57)
[2019-05-27] MEDS: BUPIVACAINE HCL 0.75% INJ/PF (7.5 MG/1 ML) 10 ML SDV OS PRN ×2 (08:19)
[2019-05-27] MEDS: LIDOCAINE 4% INJ/PF (40 MG/ML) 5 ML AMPUL OS PRN ×2 (08:19)
[2019-05-27] MEDS: EPINEPHRINE INJ/PF 1 MG/1 ML AMPULE ONE ×2 (08:28)
[2019-05-27] MEDS: CHONDR SU A NA/HYALUR INTRAOC KIT (SURGICARE) ONE ×2 (08:28)
[2019-05-27] MEDS: DORZOLAMIDE HCL 2%/TIMOLOL MALEAT 0.5% OPH SOLN 10 ML OS PRN ×2 (08:39)
--- NOTE | 2019-05-27 09:19 | [facility] OPERATIVE REPORT E ---
[facility] Operative Report NAME: CASSIDY ART AGE: 58Y DATE OF SURGERY: 05/27/2019 ROOM: PREOPERATIVE DIAGNOSIS: Cataract, left eye. POSTOPERATIVE DIAGNOSIS: Cataract, left eye. PROCEDURE PERFORMED: Phacoemulsification with posterior chamber intraocular lens, left eye. SURGEON: FERNANDO SAMUEL M.D. ANESTHESIA: Topical with MAC. INDICATIONS FOR SURGERY: Difficulty reading road signs and driving at night. PROCEDURE: The patient was brought to the Operating Room and placed on the operative table. Following tetracaine drops, topical anesthesia was administered. This consisted of instrument wipe pledgets soaked in a solution of 4% Xylocaine mixed with 0.75% Marcaine in a 1:2 ratio. A 2 x 1 cm pledget was placed in the superior fornix. A 1 x 1 cm pledget was placed in the inferior fornix. The eye was patched shut for 5 minutes. The patch was removed. The eye was sterilely prepped and draped in the usual manner. Lid speculum was placed in the eye. The pledgets were removed. 4-0 black silk sutures were placed around the superior and the inferior rectus muscles to be used as traction. A conjunctival peritomy was made at the 10 o'clock position. Hemostasis was obtained with bipolar cautery. A posterior limbal groove was created using a crescent knife and dissected anteriorly towards the cornea. A sharp point blade was used to create a paracentesis site at the 2 o'clock position. A 2.4 mm keratome was used to enter the anterior chamber through the groove. Viscoelastic was injected into the anterior chamber. An anterior capsulotomy was performed using Utrata forceps in a capsulorrhexis fashion. Hydrodissection and hydrodelineation were performed. Phacoemulsification was performed in [id number] technique. A total of 4.7 CDE phaco time was used. Following this, the I/A unit was used to remove residual cortex. Viscoelastic was injected into the capsular bag. Intraocular lens model [id number], 19.0 diopters, serial number [id number] was placed in the capsular bag. The I/A unit was used to remove residual viscoelastic. The wound was seen to be watertight under high and low pressure, and no sutures were placed. The intraocular lens was well centered. The pressure was adjusted in the eye to normal pressure. The 4-0 black silk sutures and lid speculum were removed. The eye was shielded after Besivance drops were placed. The patient tolerated the procedure well and was sent to the Recovery Room in good condition. A drop of Cosopt was placed in the eye at the end of the surgery. DICTATING PHYSICIAN: FERNANDO SAMUEL M.D. [id number] PHY#: [id number] ID: [id number] JOB#: [id number] ACCT: [id number] cc:FERNANDO SAMUEL M.D. >
--- NOTE | 2019-05-27 09:20 | [facility] DISCHARGE SUMMARY E ---
[facility] Discharge Summary NAME: CASSIDY ART AGE: 58Y ADMITTED: 05/27/2019 DISCHARGED: 05/27/2019 HOSPITAL COURSE: The patient is a 58-year-old gentleman who underwent uneventful cataract extraction with intraocular lens implant, left eye, on 05/27/2019. He will be discharged to home. He is instructed to resume preoperative medications, take Tylenol as needed for discomfort, to keep his eye shielded, to use prednisolone, Prolensa, and moxifloxacin at 3 p.m. and 8 p.m., and to follow up in my office in 1 day. DICTATING PHYSICIAN: FERNANDO SAMUEL M.D. [id number] PHY#: [id number] ID: [id number] JOB#: [id number] ACCT: [id number] cc:FERNANDO SAMUEL M.D. >
== END 2019-05-27 09:12 | disposition home or self-care (01) ==
LOC: SC 07:00
PROVIDERS: ATTEND Ophthalmology
DX: H25.812 Combined forms of age-related cataract, left eye (principal); H21.531 Iridodialysis, right eye; H01.001 Unspecified blepharitis right upper eyelid; H01.004 Unspecified blepharitis left upper eyelid; H52.4 Presbyopia; H26.491 Other secondary cataract, right eye; F17.210 Nicotine dependence, cigarettes, uncomplicated; J44.9 Chronic obstructive pulmonary disease, unspecified; I10 Essential (primary) hypertension; I48.91 Unspecified atrial fibrillation; Z79.51 Long term (current) use of inhaled steroids; Z79.82 Long term (current) use of aspirin; Z96.1 Presence of intraocular lens
CPT/HCPCS: 66984; V2632; J2250; J3490 ×4; J0171

== ENCOUNTER 2020-05-26 09:15 | Emergency (ER) | payer BC ==
--- NOTE | 2020-05-26 09:37 | ER Document Report ---
ED General - General Chief Complaint: Chest Pain Stated Complaint: CHEST PAIN Time Seen by Provider: 05/26/20 09:21 Primary Care Provider: YAZMIN CARRILLO MD [COMMUNITY BASED STAFF] - Follow up in 3-5 days Notes: 59-year-old male with a history of CAD presents with chest pain sharp radiating across his chest and around to his right shoulder on exertion this morning now resolved with nitroglycerin or aspirin.she is not sure. History of "pericardial scraping" but it looks like a CABG from my view here. This was done in 2017. And COPD has not had a cath since then. No worse shortness of breath or cough no fevers. TRAVEL OUTSIDE OF THE [place] IN LAST 30 DAYS: No - Related Data Allergies/Adverse Reactions: No Known Allergies Allergy (Verified 05/19/19 10:02) Past Medical History - General Information source: Patient - Social History Smoking Status: Former Smoker Family History: CAD, DM, Hypertension - Past Medical History Cardiac Medical History: Reports: Hx Atrial Fibrillation, Hx Congestive Heart Failure, Hx Hypertension Denies: Hx Heart Attack Pulmonary Medical History: Reports: Hx Asthma, Hx COPD Denies: Hx Tuberculosis Neurological Medical History: Denies: Hx Cerebrovascular Accident, Hx Migraine, Hx Seizures Endocrine Medical History: Denies: Hx Diabetes Mellitus Type 1, Hx Diabetes Mellitus Type 2, Hx Hyperthyroidism, Hx Hypothyroidism Renal/ Medical History: Denies: Hx Peritoneal Dialysis GI Medical History: Reports: Hx Gastroesophageal Reflux Disease. Denies: Hx Cirrhosis, Hx Crohn's Disease, Hx Hepatitis, Hx Hiatal Hernia, Hx Ulcer, Hx Ulcerative Colitis Musculoskeletal Medical History: Denies Hx Arthritis, Denies Hx Fibromyalgia, Denies Hx Gout Skin Medical History: Denies Hx Eczema, Denies Hx Psoriasis Psychiatric Medical History: Reports: Hx Personality Disorder Denies: Hx Bipolar Disorder, Hx Dementia, Hx Depression, Hx Post Traumatic Stress Disorder, Hx Schizoaffective Disorder Traumatic Medical History: Reports: Hx Pneumothorax. Denies: Hx Gunshot Wound Infectious Medical History: Denies: Hx Hepatitis Past Surgical History: Reports: Hx Cardiac Surgery - sac around heart removed, Hx Coronary Artery Bypass Graft, Other - Pericardectomy, cataracts. Denies: Hx Open Heart Surgery, Hx Pacemaker - Immunizations Hx Diphtheria, Pertussis, Tetanus Vaccination: No Hx Pneumococcal Vaccination: 11/19/17 Review of Systems - Review of Systems Notes: REVIEW OF SYSTEMS GEN: Denies fever, chills, weight loss ENT: Denies sore throat, nasal discharge, ear pain EYES: Denies blurry vision, eye pain, discharge CV: Chest pain RESP: Denies cough, shortness of breath, wheezing GI: Denies abdominal pain, nausea, vomiting, diarrhea MSK: Denies joint pain/swelling, edema, SKIN: Denies rash, skin lesions LYMPH: Denies swollen glands/lymph nodes NEURO: Denies headache, focal weakness or numbness, dizziness PSYCH: Denies depression, suicidal or homicidal ideation PHYSICAL EXAMINATION General: Thin chronically ill Head: Atraumatic, normocephalic ENT: Mouth normal, oropharynx moist, no exudates or tonsillar enlargement Eyes: Conjunctiva normal, pupils equal, lids normal Neck: No JVD, supple, no guarding CVS: Old CABG scars. No tenderness. Resp: No resp distress, equal and normal breath sounds bilaterally GI: Nondistended, soft, no tenderness to palpation, no rebound or guarding Ext: No deformities, no edema, normal range of motion in upper and lower ext Back: No CVA or midline TTP Skin: No rash, warm Lymphatic: No lymphadeopathy noted Neuro: Awake, alert. Face symmetric. GCS 15. Physical Exam - Vital signs Vitals: Temp Resp Pulse Ox 98.1 F 18 96 05/26/20 09:54 05/26/20 09:54 05/26/20 09:54 Course - Re-evaluation Re-evalutation: 05/26/20 10:36 Patient presents with chest pain which is positional also seems to be possibly exertional. His cardiac exam is normal. He does have baseline COPD and his exam reflects this His EKG is normal. He did get relief with either nitro or aspirin or both but it is difficult to tell Deep down do not feel this is ACS but patient does have risk factors so he will get at least one troponin possibly 2 in the ED We will check chest x-ray for pneumothorax. Doubt PE doubt dissection. Could be pericarditis, however does not appear severe. While observing the patient he did have a couple of PVCs, which reproduced his pain and went away quickly. He does have a history of a flutter but is not currently in any other arrhythmias and is on a blood thinner. 05/26/20 15:08 Patient's repeat troponin is negative. He is stringent about wanting to go home. He can be discharged safely with follow-up with primary care. I have discussed with the patient there likely diagnosis, aftercare plan, follow-up plans and my usual and customary return precautions. They verbalized understanding of this. - Vital Signs Vital signs: Temp Pulse Resp BP Pulse Ox 97.8 F 24 H 153/87 H 94 05/26/20 14:30 05/26/20 14:30 05/26/20 14:30 05/26/20 14:30 - Laboratory Result Diagrams: 05/26/20 09:32 05/26/20 09:32 Laboratory results interpreted by me: 05/26/20 05/26/20 09:32 09:32 WBC 10.6 H Lymph % (Auto) 5.4 L Absolute Neuts (auto) 9.4 H Seg Neutrophils % 89.3 H Carbon Dioxide 33 H Anion Gap 1 L - Diagnostic Test Radiology reviewed: Image reviewed, Reports reviewed - EKG Interpretation by Me EKG shows normal: Sinus rhythm Rate: Normal Rhythm: NSR When compared to previous EKG there are: Previous EKG unavailable - No ST or T wave changes concerning for ischemia Discharge - Discharge Clinical Impression: Ventricular contraction, premature Chest pain Qualifiers: Chest pain type: other chest pain Qualified Code(s): R07.89 - Other chest pain Condition: Good Disposition: HOME, SELF-CARE Instructions: Chest Pain of Unclear Cause ([facility]) Additional Instructions: It is very important that you follow-up with your regular doctor in 2-3 days. You may require further testing including a stress test. Referrals: YAZMIN CARRILLO MD [COMMUNITY BASED STAFF] - Follow up in 3-5 days
[2020-05-26 09:45] LABS: ABSOLUTE BASOPHILS # (AUTO) 0.1 10^3/uL (0.0-0.2); ABSOLUTE EOSINOPHILS # (AUTO) 0.1 10^3/uL (0.0-0.6); ABSOLUTE LYMPHOCYTES (AUTO) 0.6 10^3/uL (0.5-4.7); ABSOLUTE MONOCYTES (AUTO) 0.4 10^3/uL (0.1-1.4); ABSOLUTE NEUT (AUTO) 9.4 10^3/uL (1.7-8.2); BASOPHILS % (AUTO) 1.3 % (0-2); EOSINOPHILS % (AUTO) 0.5 % (0-6); HEMATOCRIT 42.8 % (37.9-51.0); HEMOGLOBIN 14.8 g/dL (13.5-17.0); LYMPHOCYTES % (AUTO) 5.4 % (13-45); MEAN CORPUSCULAR HEMOGLOBIN 31.2 pg (27.0-33.4); MEAN CORPUSCULAR HGB CONC 34.6 g/dL (32.0-36.0); MEAN CORPUSCULAR VOLUME 90 fl (80-97); MONOCYTES % (AUTO) 3.5 % (3-13); PLATELET COUNT 244 10^3/uL (150-450); RED BLOOD COUNT 4.75 10^6/uL (4.35-5.55); RED CELL DISTRIBUTION WIDTH 13.4 % (11.5-14.0); SEGMENTED NEUTROPHILS % (AUTO) 89.3 % (42-78); TOTAL CELLS COUNTED % (AUTO) 100 %; WHITE BLOOD COUNT 10.6 10^3/uL (4.0-10.5)
[2020-05-26 10:14] LABS: BLOOD UREA NITROGEN 9 mg/dL (7-20); CALCIUM 9.4 mg/dL (8.4-10.2); GLUCOSE 103 mg/dL (75-110); POTASSIUM 4.4 mmol/L (3.6-5.0)
--- NOTE | 2020-05-26 10:14 | RADIOLOGY REPORT (SQ) ---
EXAM DESCRIPTION: CHEST SINGLE VIEW IMAGES COMPLETED DATE/TIME: 05/26/2020 9:39 am REASON FOR STUDY: CP COMPARISON: 02/19/2019 EXAM PARAMETERS: NUMBER OF VIEWS: One view. TECHNIQUE: Single frontal radiographic view of the chest acquired. RADIATION DOSE: NA LIMITATIONS: None. FINDINGS: LUNGS AND PLEURA: Emphysema with hyperinflation and flattening of the hemidiaphragm. Unch anged linear left mid lung opacities, likely scarring. No definitive superimposed airspace disease. Unchanged blunting of the bilateral costophrenic angles, likely scarring. Trace effusions cannot be excluded. No pneumothorax. MEDIASTINUM AND HILAR STRUCTURES: Stable. HEART AND VASCULAR STRUCTURES: Normal heart size. Normal vasculature. BONES: Sternotomy changes. Old right-sided rib fractures. No acute findings. HARDWARE: Sternotomy hardware. OTHER: No other significant finding. IMPRESSION: Emphysematous change with unchanged left mid lung scarring. No definitive superimposed cardiopulmonary process. TECHNICAL DOCUMENTATION: JOB ID: [id number] 2010 [employer]- All Rights Reserved Reading location - IP/workstation name: [email or web address]
[2020-05-26 10:20] LABS: CARBON DIOXIDE 33 mmol/L (22-30); CHLORIDE 104 mmol/L (98-107)
[2020-05-26 10:23] LABS: ANION GAP 1 (5-19)
[2020-05-26 14:36] VITALS: BP 153/87
--- NOTE | 2020-05-26 16:17 | EKG REPORT ---
SEVERITY:- BORDERLINE ECG - SINUS RHYTHM BORDERLINE PROLONGED QT INTERVAL : Confirmed by: Linus Pagan MD 26-May-2020 16:17:05
== END 2020-05-26 14:35 | disposition home or self-care (01) ==
LOC: ER 09:15
DX: R07.9 Chest pain, unspecified (principal); I48.91 Unspecified atrial fibrillation; I50.9 Heart failure, unspecified; I11.0 Hypertensive heart disease with heart failure; Z95.1 Presence of aortocoronary bypass graft
CPT/HCPCS: 36415; 71045; 80048; 84484; 85025; 93005; 93010; 99285